=== PATIENT | male | born 1955 | race Caucasian/White ===

== ENCOUNTER 2016-09-27 13:02 | Emergency (ER) | payer MEDICARE, OTHER ==
[2016-09-27 13:15] VITALS: TEMP 98.2; O2SAT 96; BMI 32.3
--- NOTE | 2016-09-27 13:43 | ED PDOC ---
Arrival/HPI - General Time Seen by Provider: 09/27/16 13:07 Historian: Family (Son) - History of Present Illness Narrative History of Present Illness (Text): 09/27/16 14:03 61 year old male with a past medical history that includes CVA on Coumadin and chronic bilateral lower extremity edema presents with mild redness to the right esquivel that son noticed earlier today. Son states he applied Neosporin to the area with no resolution so he brought the patient to the emergency department for further evaluation. Son reports the patient is acting baseline with no new neurological deficits. No fever, shortness of breath, or other symptoms. Time/Duration: 24 hours Symptom Onset: Gradual Symptom Course: Unchanged Modifying Factors (Text): Neosporin did not resolve symptoms Associated Symptoms (Text): None Past Medical History - Provider Review Nursing Documentation Reviewed: Yes - Infectious Disease Hx of Infectious Diseases: None - Cardiac Hx Cardiac Disorders: Yes (dvt) Hx Cardiac Arrhythmia: Yes (a fib) Hx Congestive Heart Failure: No Hx Hypertension: Yes Hx Peripheral Edema: Yes (+4 pitting) - Pulmonary Hx Chronic Obstructive Pulmonary Disease (COPD): No Hx Pneumonia: Yes - Neurological HX Cerebrovascular Accident: Yes (approx ly 6 yrs ago) Hx Seizures: Yes Other/Comment: rt side hemiplagia , aphasia - HEENT Hx HEENT Disorder: No - Renal Hx Renal Failure: No - Endocrine/Metabolic Hx Diabetes Mellitus Type 1: No Hx Diabetes Mellitus Type 2: Yes Hx Hypothyroidism: No - Hematological/Oncological Hx Blood Transfusions: Yes Hx Blood Transfusion Reaction: (UNK) - Integumentary Hx Dermatological Disorder: No - Musculoskeletal/Rheumatological Hx Falls: Yes (past) - Gastrointestinal Hx Gastrointestinal Disorders: Yes Hx Gall Bladder Disease: Yes (gallstones) Other/Comment: ercp Billary stent - Genitourinary/Gynecological Hx Incontinence: Yes - Psychiatric Hx Substance Use: No - Surgical History Hx Cholecystectomy: Yes Other/Comment: uto - Anesthesia Hx Anesthesia Reactions: (UNK) Hx Malignant Hyperthermia: (UNK) Family/Social History - Physician Review Nursing Documentation Reviewed: Yes Family/Social History: Unknown Family HX Smoking Status: Never Smoked Hx Alcohol Use: No Hx Substance Use: No Allergies/Home Meds Allergies/Adverse Reactions: Allergies No Known Allergies Allergy (Verified 06/03/16 19:41) Home Medications: Home Meds Medication Instructions Recorded Confirmed Atorvastatin [Lipitor] 10 mg PO DAILY 11/10/15 06/07/16 Esomeprazole Magnesium [Nexium] 40 mg PO DAILY 05/29/16 06/07/16 Levetiracetam 500 mg PO BID 05/29/16 06/07/16 Metoprolol Tartrate [Lopressor] 25 mg PO DAILY 05/29/16 06/07/16 Potassium Chloride [K-Tab ER] 1 tab PO DAILY 05/29/16 06/07/16 Review of Systems - Review of Systems Systems not reviewed;Unavailable: Other (Nonverbal, hx of CVA) Physical Exam - Physical Exam Narrative Physical Exam (Text): - Physical exam Patient appears age appropriate, speaking full sentences without difficulty - Systems Exam Head: Present: Atraumatic, Normocephalic Pupils: Present: PERRL Extraocular Muscles: Present: EOMI Conjunctiva: Present: Normal Mouth: Present: Moist Mucous Membranes Neck: Present: Normal Range of Motion. No: MIDLINE TENDERNESS, Paraspinal Tenderness Respiratory/Chest: Present: Clear to Auscultation, Good Air Exchange. No: Respiratory Distress, Accessory Muscle Use, Tachypneic Cardiovascular: Present: Regular Rate and Rhythm, Normal S1, S2, Peripheral Pulses Present. No: Murmurs Abdomen: Present: Normal Bowel Sounds, No: Tenderness, Peritoneal Signs, Rebound, Guarding, Distention Back: Present: Normal Inspection. No: Midline Tenderness, Paraspinal Tenderness Upper Extremity: Present: Normal Inspection. No: Cyanosis, Edema Lower Extremity: Present: Bilateral 3+ pitting edema. Small erythematous area of anterior esquivel 3-4 cm long and 1 cm wide. Neurological: Present: No new focal neurological deficits. Skin: Present: Warm, Dry, Normal Color. Lymphatic: Present: OX3, NI, NC Psychiatric: Present: Alert, Normal Concentration. Vital Signs Reviewed: Yes Vital Signs Temp Pulse Resp BP Pulse Ox 09/27/16 13:14 98.2 F 93 H 18 136/77 96 Temperature: Afebrile Blood Pressure: Normal Pulse: Regular Respiratory Rate: Normal Appearance: Positive for: Well-Appearing, Non-Toxic, Comfortable Pain Distress: None Mental Status: Positive for: other (Baseline) Medical Decision Making ED Course and Treatment: Impression: 61 year old male with history of CVA on Coumadin and chronic bilateral lower extremity edema presents with mild redness to right esquivel since earlier today. On physical exam, patient has bilateral +3 pitting edema and small erythmatous area of the anterior esquivel 3-4 cm long and 1 cm wide. Differential Diagnosis include but are not limited to: Cellulitis Plan: -- US duplex lower extrem vein bilat -- Reassess and disposition Prior Visits: Notes and results from previous visits were reviewed. Patient last seen in the ED on 06/07/16 from TCU for sudden vomiting. Progress Notes: US Duplex LE Business Developer : John Stephenson MD No sonographic evidence for deep venous thrombosis in the visualized segments of both lower extremities. Very limited study Chest X-ray Business Developer: Jean Carlos Bui MD No active disease 09/27/16 16:25 Patient will be discharged home on oral antibiotics. Patient's son states he feels comfortable taking his father home with outpatient follow-up. Also informed that INR is sub-theraputic and needs to f/u with PMD for correction. All questions answered, and he verbalized full understanding of discharge instructions. - Lab Interpretations Lab Results: 09/27/16 14:00 09/27/16 14:00 Lab Results 09/27/16 14:00: WBC 6.6 D, RBC 4.21, Hgb 14.1, Hct 41.6 L, MCV 98.8, MCH 33.5, MCHC 33.9, RDW 13.9, Plt Count 236, MPV 10.0, Gran % 65.8, Lymph % (Auto) 24.5, [place] % (Auto) 7.1 H, Eos % (Auto) 2.3, Baso % (Auto) 0.3, Gran # 4.35, Lymph # 1.6, [place] # 0.5, Eos # 0.2, Baso # 0.02, PT 11.4, INR 1.06, APTT 28.0, Sodium 137, Potassium 4.3, Chloride 100, Carbon Dioxide 27, Anion Gap 14, BUN 17, Creatinine 1.0, Est GFR ( Amer) > 60, Est GFR (Non-Af Amer) > 60, Random Glucose 152 H, Calcium 9.4, Total Bilirubin 0.4, AST 27, ALT 21, Alkaline Phosphatase 49, NT-Pro-B Natriuret Pep 142, Total Protein 6.7, Albumin 3.2, Globulin 3.5, Albumin/Globulin Ratio 0.9 L - RAD Interpretation Radiology Orders: 09/27/16 13:36 CHEST PORTABLE [RAD] Stat DUPLEX LOWER EXTRM VEIN BILAT [US] Stat Structural Iron Erector: Radiologist - Scribe Statement The provider has reviewed the documentation as recorded by the Sinan Corado Provider Scribe Attestation: All medical record entries made by the Zachibe were at my direction and personally dictated by me. I have reviewed the chart and agree that the record accurately reflects my personal performance of the history, physical exam, medical decision making, and the department course for this patient. I have also personally directed, reviewed, and agree with the discharge instructions and disposition. Disposition/Present on Arrival - Present on Arrival Any Indicators Present on Arrival: No History of DVT/PE: No History of Uncontrolled Diabetes: No Urinary Catheter: No History Surgical Site Infection Following: None - Disposition Have Diagnosis and Disposition been Completed?: Yes Diagnosis: Cellulitis Disposition: HOME/ ROUTINE Disposition Time: 16:26 Patient Plan: Discharge Patient Problems: Current Active Problems Problem Status Diagnosed Abdominal pain Acute Cellulitis Acute Vomiting Acute Condition: GOOD Discharge Instructions (ExitCare): Cellulitis (ED) Additional Instructions: PLEASE RETURN TO THE EMERGENCY DEPARTMENT FOR NEW OR WORSENING SYMPTOMS. RETURN RIGHT AWAY IF YOU CANNOT FOLLOW UP WITH YOUR PRIMARY CARE DOCTOR, CLINIC, OR SPECIALIST IN 1-2 DAYS. Prescriptions: Doxycycline Monohydrate 100 mg PO BID #14 tablet
[2016-09-27 14:04] LABS: ADD MANUAL DIFF? NO
--- NOTE | 2016-09-27 14:13 | RAD ---
HISTORY: cough COMPARISON: 06/07/2016 FINDINGS: LUNGS: No active pulmonary disease. PLEURA: No significant pleural effusion identified, no pneumothorax apparent. CARDIOVASCULAR: Normal. OSSEOUS STRUCTURES: No significant abnormalities. VISUALIZED UPPER ABDOMEN: Normal. OTHER FINDINGS: None. IMPRESSION: No active disease.
[2016-09-27 14:19] LABS: ALB/GLOB RATIO 0.9 (1.1-1.8); ALKALINE PHOSPHATASE 49 U/L (38-133); ALT/SGPT 21 U/L (7-56); AST/SGOT 27 U/L (15-59); BILIRUBIN,TOTAL 0.4 mg/dL (0.2-1.3); BLOOD UREA NITROGEN 17 mg/dL (7-21); CALCIUM 9.4 mg/dL (8.4-10.5); CARBON DIOXIDE 27 mmol/L (21-33); CHLORIDE 100 mmol/L (95-110); GFR AFRICAN-AMERICAN > 60; GLUCOSE,RANDOM 152 mg/dL (70-110); POTASSIUM 4.3 mmol/L (3.6-5.0); SODIUM 137 mmol/L (132-148); TOTAL PROTEIN 6.7 g/dL (5.8-8.3)
[2016-09-27 14:24] LABS: BASO # 0.02 K/mm3 (0.0-2.0); BASO % 0.3 % (0.0-3.0); EOS # 0.2 (0.0-0.7); EOS % 2.3 % (1.5-5.0); GRAN # 4.35 (1.4-6.5); GRAN % 65.8 % (50.0-68.0); HEMATOCRIT 41.6 % (42.0-52.0); LYMPH # 1.6 (1.2-3.4); LYMPH % 24.5 % (22.0-35.0); MEAN CELL VOLUME 98.8 fL (80.0-105.0); MEAN CORPUSCULAR HEMOGLOBIN 33.5 pg (25.0-35.0); MEAN CORPUSCULAR HGB CONC 33.9 g/dl (31.0-37.0); MONO # 0.5 (0.1-0.6); MONO % 7.1 % (1.0-6.0); PLATELET COUNT 236 10^3/uL (120.0-450.0); RED CELL DISTRIBUTION WIDTH 13.9 % (11.5-14.5); WHITE BLOOD COUNT 6.6 10^3/ul (4.5-11.0)
[2016-09-27 14:40] LABS: INR 1.06 (0.93-1.08)
--- NOTE | 2016-09-27 15:11 | US ---
HISTORY: Leg pain and swelling. Evaluate for DVT PHYSICIAN(S): John Vale MD. TECHNIQUE: Duplex sonography and color-flow Doppler with graded compression were used to evaluate the deep venous systems of both lower extremities. FINDINGS: The exam is very limited by body habitus and edema. The lower femoral veins and tibial veins are not well seen. The visualized deep venous systems of both lower extremities are sonographically normal and compressible. Normal wave forms and augmentation are seen. There is no sonographic evidence for deep venous thrombosis in the visualized segments of both lower extremities. IMPRESSION: No sonographic evidence for deep venous thrombosis in the visualized segments of both lower extremities. Very limited study
[2016-09-27 18:32] VITALS: RESP 16
[2016-09-27 20:37] VITALS: BP 149/92; PULSE 82
== END 2016-09-27 20:37 | disposition home or self-care (01) ==
LOC: ED 13:02
DX: L03.115 Cellulitis of right lower limb (principal); I10 Essential (primary) hypertension; Z86.73 Personal history of transient ischemic attack (TIA), and cerebral infarction without residual deficits; Z79.01 Long term (current) use of anticoagulants

== ENCOUNTER 2016-12-09 11:42 | Emergency (ER) | payer MEDICARE, OTHER ==
[2016-12-09 11:48] VITALS: BMI 39.1
[2016-12-09 11:57] VITALS: RESP 16; TEMP 98.2
[2016-12-09] MEDS ORDERED: Sodium Chloride 0.9% 500 ML IV STA (12:06)
--- NOTE | 2016-12-09 12:40 | ED PDOC ---
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 Patient notes lower abdominal pain but denies any fever, blood in stool or any other complaints at this time. Patient cannot speak at bedside. Limited history provided. PMD: Dr. Dela Cruz Symptom Course: Unchanged Activities at Onset: Rest Context: Home Associated Symptoms (Text): none Past Medical History - Provider Review Nursing Documentation Reviewed: Yes - Infectious Disease Hx of Infectious Diseases: None - Cardiac Hx Cardiac Disorders: Yes (dvt) Hx Cardiac Arrhythmia: Yes (a fib) Hx Congestive Heart Failure: No Hx Hypertension: Yes Hx Peripheral Edema: Yes (+4 pitting) - Pulmonary Hx Respiratory Disorders: Yes Hx Chronic Obstructive Pulmonary Disease (COPD): No Hx Pneumonia: Yes - Neurological Hx Neurological Disorder: Yes HX Cerebrovascular Accident: Yes (approx ly 6 yrs ago) Hx Seizures: Yes Other/Comment: rt side hemiplagia , aphasia - HEENT Hx HEENT Disorder: No - Renal Hx Renal Disorder: No Hx Renal Failure: No - Endocrine/Metabolic Hx Endocrine Disorders: Yes Hx Diabetes Mellitus Type 1: No Hx Diabetes Mellitus Type 2: Yes Hx Hypothyroidism: No - Hematological/Oncological Hx Blood Disorders: Yes Hx Blood Transfusions: Yes Hx Blood Transfusion Reaction: (UNK) - Integumentary Hx Dermatological Disorder: No - Musculoskeletal/Rheumatological Hx Musculoskeletal Disorders: Yes Hx Falls: Yes (past) - Gastrointestinal Hx Gastrointestinal Disorders: Yes Hx Gall Bladder Disease: Yes (gallstones) Other/Comment: ercp Billary stent - Genitourinary/Gynecological Hx Genitourinary Disorders: Yes Hx Incontinence: Yes - Psychiatric Hx Psychophysiologic Disorder: No Hx Substance Use: No - Surgical History Hx Cholecystectomy: Yes Other/Comment: uto - Anesthesia Hx Anesthesia Reactions: (UNK) Hx Malignant Hyperthermia: (UNK) Family/Social History - Physician Review Nursing Documentation Reviewed: Yes Family/Social History: No Known Family HX Smoking Status: Never Smoked Hx Alcohol Use: No Hx Substance Use: No Allergies/Home Meds Allergies/Adverse Reactions: Allergies No Known Allergies Allergy (Verified 12/09/16 11:50) Home Medications: Home Meds Medication Instructions Recorded Confirmed Atorvastatin [Lipitor] 10 mg PO DAILY 11/10/15 06/07/16 Esomeprazole Magnesium [Nexium] 40 mg PO DAILY 05/29/16 06/07/16 Levetiracetam 500 mg PO BID 05/29/16 06/07/16 Metoprolol Tartrate [Lopressor] 25 mg PO DAILY 05/29/16 06/07/16 Potassium Chloride [K-Tab ER] 1 tab PO DAILY 05/29/16 06/07/16 Review of Systems - Review of Systems Systems not reviewed;Unavailable: Other (patient cannot speak at bedside) Constitutional: absent: Fevers Gastrointestinal: Abdominal Pain. absent: Nausea, Vomiting, Hematochezia Physical Exam Vital Signs Reviewed: Yes Vital Signs Temp Pulse Resp BP Pulse Ox 12/09/16 14:35 82 16 154/99 H 95 12/09/16 11:57 98.2 F 83 16 154/92 H 97 Temperature: Afebrile Blood Pressure: Hypertensive Pulse: Regular Respiratory Rate: Normal Appearance: Positive for: Non-Toxic, Comfortable, Other (morbidly obese) Pain Distress: None Mental Status: Positive for: Alert and Oriented X 3 - Systems Exam Head: Present: Atraumatic, Normocephalic Pupils: Present: PERRL Extroacular Muscles: Present: EOMI Conjunctiva: Present: Normal Mouth: Present: Moist Mucous Membranes Neck: Present: Normal Range of Motion Respiratory/Chest: Present: Clear to Auscultation, Good Air Exchange. No: Respiratory Distress, Accessory Muscle Use Cardiovascular: Present: Regular Rate and Rhythm, Normal S1, S2. No: Murmurs Abdomen: Present: Tenderness (suprapubic ), Normal Bowel Sounds. No: Distention , Peritoneal Signs Back: Present: Normal Inspection Upper Extremity: Present: Normal Inspection. No: Cyanosis, Edema Lower Extremity: Present: Normal Inspection. No: Edema Neurological: Present: GCS=15, CN II-XII Intact, Speech Normal Skin: Present: Warm, Dry, Normal Color. No: Rashes Psychiatric: Present: Alert, Oriented x 3, Normal Insight, Normal Concentration Medical Decision Making ED Course and Treatment: 12/09/16 12:38 Impression: A 61 year old male with abdominal pain. Differential Diagnosis include but are not limited to: Plan: -- EKG -- CT abd/pelvis -- labs -- Urinalysis -- IV fluids, Toradol -- Reassess and disposition Prior Visits: Notes and results from previous visits were reviewed. Patient last reported to the emergency department on 09/27/16 for evaluation of mild redness to the right esquivel. Patient was advised outpatient follow up and discharged on oral antibiotics. Progress Notes: EKG: Ordered, reviewed, and independently interpreted the EKG. Rate : 84 BPM Rhythm : NSR Interpretation : No ST/T changes, normal intervals. Comparison : No previous EKG for comparison. 12/09/16 16:07 pt reassessed. abd soft. son now bedside. endorses 2 days of lower abd pain. ct neg for obstruction. pt sleeping in nad. advised outpt follow up and return precautions - Lab Interpretations Lab Results: 12/09/16 13:00 12/09/16 13:00 Lab Results 12/09/16 14:00: Urine Color Yellow, Urine Appearance Clear, Urine pH 7.0, Ur Specific [place] 1.020, Urine Protein >=300 H, Urine Glucose (UA) 100 H, Urine Ketones Negative, Urine Blood Moderate H, Urine Nitrate Negative, Urine Bilirubin Negative, Urine Urobilinogen 1.0 H, Ur Leukocyte Esterase Negative, Urine RBC Pending, Urine WBC Pending 12/09/16 13:00: Sodium 138, Potassium 4.4, Chloride 104, Carbon Dioxide 31, Anion Gap 7 L, BUN 15, Creatinine 1.1, Est GFR ( Amer) > 60, Est GFR (Non -Af Amer) > 60, Random Glucose 150 H, Calcium 8.6, Total Bilirubin 0.4, AST 34, ALT 39, Alkaline Phosphatase 48, Total Protein 6.1, Albumin 2.8 L, Globulin 3.4 , Albumin/Globulin Ratio 0.8 L, Lipase 175 12/09/16 13:00: PT 16.4 H, INR 1.52 H, APTT 35.8 H 12/09/16 13:00: WBC 6.5, RBC 4.23, Hgb 14.4, Hct 42.1, MCV 99.5, MCH 34.0, MCHC 34.2, RDW 13.0, Plt Count 248, MPV 10.0, Gran % 70.4 H, Lymph % (Auto) 18.2 L, [place] % (Auto) 9.4 H, Eos % (Auto) 1.5, Baso % (Auto) 0.5, Gran # 4.56, Lymph # 1.2, [place] # 0.6, Eos # 0.1, Baso # 0.03 I have reviewed the lab results: Yes - RAD Interpretation Radiology Orders: 12/09/16 12:09 ABD & PELVIS IV CONTRAST ONLY [CT] Stat - EKG Interpretation Interpreted by ED Physician: Yes Type: 12 lead EKG - Medication Orders Current Medication Orders: Discontinued Medications Sodium Chloride (Sodium Chloride 0.9%) 500 mls @ 1,000 mls/hr IV .Q30M STA Stop: 12/09/16 12:35 Last Admin: 12/09/16 12:34 Dose: 1,000 mls/hr Iohexol (Omnipaque 350 150 Ml) Confirm Administered Dose 150 ml .ROUTE .STK-MED ONE Stop: 12/09/16 14:04 Ketorolac Tromethamine (Toradol) 30 mg IVP STAT STA Stop: 12/09/16 12:07 Last Admin: 12/09/16 12:34 Dose: 30 mg - Scribe Statement The provider has reviewed the documentation as recorded by the Sinan Lewis Provider Scribe Attestation: All medical record entries made by the Sinan were at my direction and personally dictated by me. I have reviewed the chart and agree that the record accurately reflects my personal performance of the history, physical exam, medical decision making, and the department course for this patient. I have also personally directed, reviewed, and agree with the discharge instructions and disposition. Disposition/Present on Arrival - Present on Arrival Any Indicators Present on Arrival: No History of DVT/PE: No History of Uncontrolled Diabetes: No Urinary Catheter: No History of Decub. Ulcer: No History Surgical Site Infection Following: None - Disposition Have Diagnosis and Disposition been Completed?: Yes Diagnosis: Abdominal pain, Fecal impaction Disposition: HOME/ ROUTINE Disposition Time: 16:02 Patient Problems: Current Active Problems Problem Status Onset Abdominal pain Acute Fecal impaction Acute Condition: STABLE Discharge Instructions (ExitCare): Constipation (ED), Acute Abdominal Pain (ED) Additional Instructions: please follow up with your doctor/specailist. return to emergency room with worsening symptoms or concerns. Prescriptions: Polyethylene Glycol 3350 [Miralax] 17 gm PO DAILY PRN #4 ml PRN Reason: Constipation Referrals: [facility] [Outside] - Follow up with primary [facility] [place] - Follow up with primary Leroy Cabrera DO [Primary Care Provider] - Follow up with primary Ramon Tovar DO [Staff Provider] - Follow up with primary
[2016-12-09 13:17] LABS: ADD MANUAL DIFF? NO
[2016-12-09 13:30] LABS: BASO # 0.03 K/mm3 (0.0-2.0); BASO % 0.5 % (0.0-3.0); EOS # 0.1 (0.0-0.7); EOS % 1.5 % (1.5-5.0); GRAN # 4.56 (1.4-6.5); GRAN % 70.4 % (50.0-68.0); HEMATOCRIT 42.1 % (42.0-52.0); LYMPH # 1.2 (1.2-3.4); LYMPH % 18.2 % (22.0-35.0); MEAN CELL VOLUME 99.5 fL (80.0-105.0); MEAN CORPUSCULAR HGB CONC 34.2 g/dl (31.0-37.0); MONO # 0.6 (0.1-0.6); MONO % 9.4 % (1.0-6.0); PLATELET COUNT 248 10^3/uL (120.0-450.0); WHITE BLOOD COUNT 6.5 10^3/ul (4.5-11.0)
[2016-12-09 13:34] LABS: ALB/GLOB RATIO 0.8 (1.1-1.8); ALKALINE PHOSPHATASE 48 U/L (38-133); ALT/SGPT 39 U/L (7-56); AST/SGOT 34 U/L (15-59); BILIRUBIN,TOTAL 0.4 mg/dL (0.2-1.3); BLOOD UREA NITROGEN 15 mg/dL (7-21); CALCIUM 8.6 mg/dL (8.4-10.5); CARBON DIOXIDE 31 mmol/L (21-33); CHLORIDE 104 mmol/L (98-107); GFR AFRICAN-AMERICAN > 60; GLUCOSE,RANDOM 150 mg/dL (70-110); LIPASE 175 U/L (23-300); POTASSIUM 4.4 mmol/L (3.6-5.0); SODIUM 138 mmol/L (132-148); TOTAL PROTEIN 6.1 g/dL (5.8-8.3)
[2016-12-09 13:37] LABS: INR 1.52 (0.93-1.08); PARTIAL THROMBOPLASTIN TIME 35.8 Seconds (23.7-30.8)
[2016-12-09 15:17] LABS: URINE BILIRUBIN NEGATIVE (NEGATIVE); URINE BLOOD MODERATE (NEGATIVE); URINE GLUCOSE (UA) 100 mg/dL (NEGATIVE); URINE KETONE NEGATIVE (NEGATIVE); URINE LEUKOCYTE ESTERASE NEGATIVE Leu/uL (NEGATIVE); URINE PROTEIN >=300 mg/dL (<30 mg/dL)
[2016-12-09 15:19] LABS: URINE APPEARANCE CLEAR (CLEAR); URINE COLOR YELLOW (YELLOW)
--- NOTE | 2016-12-09 15:58 | CT ---
PROCEDURE: CT Abdomen and Pelvis with contrast HISTORY: lower abd pain COMPARISON: 06/07/2016 TECHNIQUE: Contrast dose: 150 cc of Omni 350 Radiation dose: Total exam DLP = 1356 mGy-cm. This CT exam was performed using one or more of the following dose reduction techniques: Automated exposure control, adjustment of the mA and/or kV according to patient size, and/or use of iterative reconstruction technique. FINDINGS: LOWER THORAX: Unremarkable. LIVER: Unremarkable. No gross lesion or ductal dilatation. GALLBLADDER AND BILE DUCTS: Gallbladder removed PANCREAS: Unremarkable. No gross lesion or ductal dilatation. SPLEEN: Unremarkable. ADRENALS: Unremarkable. No mass. KIDNEYS AND URETERS: Unremarkable. No hydronephrosis. No solid mass. VASCULATURE: Unremarkable. No aortic aneurysm. Caval filter BOWEL: Unremarkable. No obstruction. No gross mural thickening. There is a moderate amount of fecal impaction APPENDIX: Normal appendix. PERITONEUM: Unremarkable. No free fluid. No free air. LYMPH NODES: Unremarkable. No enlarged lymph nodes. BLADDER: Unremarkable. REPRODUCTIVE: Unremarkable. BONES: Extensive heterotopic bone is seen around both hips right greater than left OTHER FINDINGS: None. IMPRESSION: Fecal impaction. No acute intra-abdominal findings
[2016-12-09 16:14] LABS: URINE AMORPHOUS SEDIMENT MODERATE
[2016-12-09 16:41] VITALS: BP 158/90; PULSE 69; O2SAT 97
--- NOTE | 2016-12-09 18:26 | CARD ---
APPROVED REPORT EKG Measurement Heart [id number] ID [id number] <Conclusion> Normal sinus rhythm Normal ECG
== END 2016-12-09 17:03 | disposition home or self-care (01) ==
LOC: ED 11:42
DX: R10.9 Unspecified abdominal pain (principal); K56.41 Fecal impaction
CPT/HCPCS: 74177; 80053; 81001; 83690; 85025; 85610; 85730; 87086; 93005; 96361; 96374; 99285; J1885; J7040; Q9967

== ENCOUNTER 2017-03-06 16:14 | Emergency (ER) | payer MEDICARE, OTHER ==
[2017-03-06 16:15] VITALS: BMI 34.4
[2017-03-06 16:23] VITALS: TEMP 98.2
--- NOTE | 2017-03-06 16:59 | ED PDOC ---
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 The sister states that the usual home stereo equipment installer for the patient had just experienced an [place] and . The sister came to the patient's home after this event. On Tuesday when she came, she noted the skin changes. Further details about the changes are unknown due to the extenuating circumstances. The sister is unsure of the patient's medical history, and so information was taken from old records. The patient did nod his head when asked about pain in the extremity. Patient was able to motion that he was not experiencing any other complaints. HPI and ROS limited due to patient's aphasia. 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, DVT, hypertension, diabetes, seizures, choledocolithiasis PSHx: EUS, ERCP, sphincterotomy Allergies: NKDA (Edmund Swenson) Past Medical History - Provider Review Nursing Documentation Reviewed: Yes - Infectious Disease Hx of Infectious Diseases: None - Cardiac Hx Cardiac Disorders: Yes (dvt) Hx Cardiac Arrhythmia: Yes (a fib) Hx Congestive Heart Failure: No Hx Hypertension: Yes Hx Peripheral Edema: Yes (+4 pitting) - Pulmonary Hx Respiratory Disorders: Yes Hx Chronic Obstructive Pulmonary Disease (COPD): No Hx Pneumonia: Yes - Neurological Hx Neurological Disorder: Yes HX Cerebrovascular Accident: Yes (approx ly 6 yrs ago) Hx Seizures: Yes Other/Comment: rt side hemiplagia , aphasia - HEENT Hx HEENT Disorder: No - Renal Hx Renal Disorder: No Hx Renal Failure: No - Endocrine/Metabolic Hx Endocrine Disorders: Yes Hx Diabetes Mellitus Type 1: No Hx Diabetes Mellitus Type 2: Yes Hx Hypothyroidism: No - Hematological/Oncological Hx Blood Disorders: Yes Hx Blood Transfusions: Yes Hx Blood Transfusion Reaction: (UNK) - Integumentary Hx Dermatological Disorder: No - Musculoskeletal/Rheumatological Hx Musculoskeletal Disorders: Yes Hx Falls: Yes (past) - Gastrointestinal Hx Gastrointestinal Disorders: Yes Hx Gall Bladder Disease: Yes (gallstones) Other/Comment: ercp Billary stent - Genitourinary/Gynecological Hx Genitourinary Disorders: Yes Hx Incontinence: Yes - Psychiatric Hx Psychophysiologic Disorder: No Hx Substance Use: No - Surgical History Hx Cholecystectomy: Yes Other/Comment: uto - Anesthesia Hx Anesthesia Reactions: (UNK) Hx Malignant Hyperthermia: (UNK) <Edmund Swenson - Last Filed: 03/06/17 21:40> Family/Social History - Physician Review Nursing Documentation Reviewed: Yes Family/Social History: CAD/[place] Smoking Status: Never Smoked Hx Alcohol Use: No Hx Substance Use: No <Edmund Swenson - Last Filed: 03/06/17 21:40> Allergies/Home Meds <Edmund Swenson - Last Filed: 03/06/17 21:40> <Cristi Lay DO - Last Filed: 03/06/17 22:29> Allergies/Adverse Reactions: Allergies No Known Allergies Allergy (Verified 12/09/16 11:50) Home Medications: Home Meds Medication Instructions Recorded Confirmed Atorvastatin [Lipitor] 10 mg PO DAILY 11/10/15 03/06/17 Esomeprazole Magnesium [Nexium] 40 mg PO DAILY 05/29/16 03/06/17 Levetiracetam 500 mg PO BID 05/29/16 03/06/17 Metoprolol Tartrate [Lopressor] 25 mg PO DAILY 05/29/16 03/06/17 Potassium Chloride [K-Tab ER] 1 tab PO DAILY 05/29/16 03/06/17 Review of Systems - Review of Systems Systems not reviewed;Unavailable: Other (limited ROS due to aphasia) Skin: Skin Lesions (posterior right lower extremity with pain) <Edmund Swenson - Last Filed: 03/06/17 21:40> Physical Exam Vital Signs Reviewed: Yes Blood Pressure: Hypertensive Pulse: Tachycardic Respiratory Rate: Normal Appearance: Positive for: Comfortable Pain Distress: None Mental Status: Positive for: other (Aphasic. unable to ascertain) - Systems Exam Head: Present: Atraumatic, Normocephalic Pupils: Present: PERRL Extroacular Muscles: Present: EOMI Conjunctiva: Present: Normal Mouth: Present: Moist Mucous Membranes Respiratory/Chest: Present: Clear to Auscultation, Good Air Exchange. No: Accessory Muscle Use Cardiovascular: Present: Regular Rate and Rhythm, Normal S1, S2 Abdomen: Present: Tenderness (generalized tenderness across the lower abdomen), Distention. No: Normal Bowel Sounds (Hyperactive Bowel Sounds) Upper Extremity: Present: NORMAL PULSES Lower Extremity: Present: Edema (Bilateral 3+ pitting edema extending throughout entire lower extremities that is chronic per old records), NORMAL PULSES, Other (Black discoloration of right leg. multiple lesions located along the entire RLE with tenderness. Lesions are not erythematous and are not warm to touch.) Neurological: No: Speech Normal (Aphasic), Motor Func Grossly Intact (right hemiparesis.) Skin: Present: Dry, Other (Black discoloration of right leg. multiple lesions located along the entire RLE with tenderness. Lesions are not erythematous and are not warm to touch.) Psychiatric: Present: Alert <Edmund Swenson - Last Filed: 03/06/17 21:40> Medical Decision Making <Edmund Swenson - Last Filed: 03/06/17 21:40> <Cristi Lay DO - Last Filed: 03/06/17 22:29> ED Course and Treatment: 03/06/17 17:09 CBC, CMP, Coags, RLE duplex 03/06/17 20:27 CT abdomen with PO & IV contrast RLE duplex limited study but unremarkable. 03/06/17 21:41 CT abdomen/pelvis showed fecal impaction. Patient discharged with instructions for hygiene, follow up with PMD Dr. Cabrera. Patient discharged with prescriptions for Keflex and Miralax. Family spoken to at length, and they understand and agree with the plan. (Edmund Swenson) 03/06/17 17:19 Patient Seen With Resident: In agreement with resident note and more details are present in their notes. Patient was seen and evaluated with resident, came up with plan and treatment together. (Cristi Lay DO) - Lab Interpretations Lab Results: 03/06/17 17:10 03/06/17 17:10 Lab Results 03/06/17 17:10: Sodium 137, Potassium 4.5, Chloride 104, Carbon Dioxide 24, Anion Gap 14, BUN 24 H, Creatinine 1.2, Est GFR ( Amer) > 60, Est GFR ( Non-Af Amer) > 60, Random Glucose 101, Calcium 8.9, Total Bilirubin 0.2, AST 29 , ALT 30, Alkaline Phosphatase 54, Total Protein 6.3, Albumin 3.1, Globulin 3.3 , Albumin/Globulin Ratio 0.9 L 03/06/17 17:10: PT 27.4 H, INR 2.54 H, APTT 45.5 H 03/06/17 17:10: WBC 7.0, RBC 4.25, Hgb 14.2, Hct 42.2, MCV 99.3, MCH 33.4, MCHC 33.6, RDW 12.7, Plt Count 181, MPV 10.7, Gran % 68.0, Lymph % (Auto) 22.0, [place] % (Auto) 7.0 H, Eos % (Auto) 2.6, Baso % (Auto) 0.4, Gran # 4.76, Lymph # 1.5, [place] # 0.5, Eos # 0.2, Baso # 0.03 - RAD Interpretation Radiology Orders: 03/06/17 16:49 DUPLEX LOWER EXTRM VEIN RIGHT [US] Stat 03/06/17 17:14 ABDOMEN & PELVIS [ABD PELVIS PO & IV CONTRAST] [CT] Stat - Medication Orders Current Medication Orders: Sodium Chloride (Sodium Chloride 0.9%) 500 mls @ 100 mls/hr IV .Q5H [facility] Last Admin: 03/06/17 19:30 Dose: 100 mls/hr Discontinued Medications Iohexol (Omnipaque 240 (50 Ml)) Confirm Administered Dose 50 ml .ROUTE .STK-MED ONE Stop: 03/06/17 17:24 Iohexol (Omnipaque 350 100 Ml) Confirm Administered Dose 350 mg .ROUTE .STK-MED ONE Stop: 03/06/17 19:50 Disposition/Present on Arrival - Present on Arrival Any Indicators Present on Arrival: Yes History of DVT/PE: Yes History of Uncontrolled Diabetes: No Urinary Catheter: No History of Decub. Ulcer: No History Surgical Site Infection Following: None <GayBaldo springera S - Last Filed: 03/06/17 21:40> - Present on Arrival Any Indicators Present on Arrival: No History of DVT/PE: Yes - Disposition Have Diagnosis and Disposition been Completed?: Yes Disposition Time: 21:15 <Cristi Lay DO - Last Filed: 03/06/17 22:29> - Disposition Diagnosis: Skin lesion Disposition: HOME/ ROUTINE Patient Problems: Current Active Problems Problem Status Onset Skin lesion Acute Condition: GOOD Additional Instructions: Please follow up with your primary doctor Dr. Cabrera within 1 week. His phone number and information have been provided. The ultrasound for the right leg was normal. The CT scan showed a lot of constipation. Take Miralax, mix 1 packet in water daily only if needed for constipation. Take the antibiotic Keflex 500 mg by mouth twice a day for 7 days. Make sure to clean the areas and dry thoroughly. Reduce sources of friction in the affected areas. Elevate the legs and get compression stockings to reduce swelling. Prescriptions: Cephalexin [cephalexin] 500 mg PO BID #14 cap Polyethylene Glycol 3350 [Miralax] 17 gm PO DAILY PRN #100 ml PRN Reason: Constipation Referrals: Leroy Cabrera DO [Primary Care Provider] - Follow up with primary Forms: [employer] (Mongolian)
[2017-03-06] MEDS ORDERED: Iohexol 240 (50 ml) ONE (17:23)
[2017-03-06 17:30] LABS: BASO # 0.03 K/mm3 (0.0-2.0); BASO % 0.4 % (0.0-3.0); EOS # 0.2 (0.0-0.7); EOS % 2.6 % (1.5-5.0); GRAN # 4.76 (1.4-6.5); HEMATOCRIT 42.2 % (42.0-52.0); LYMPH # 1.5 (1.2-3.4); MEAN CELL VOLUME 99.3 fl (80.0-105.0); MEAN CORPUSCULAR HEMOGLOBIN 33.4 pg (25.0-35.0); MEAN CORPUSCULAR HGB CONC 33.6 g/dl (31.0-37.0); MEAN PLATELET VOLUME 10.7 fl (7.0-11.0); MONO # 0.5 (0.1-0.6); RED CELL DISTRIBUTION WIDTH 12.7 % (11.5-14.5)
[2017-03-06 17:38] LABS: INR 2.54 (0.93-1.08); PARTIAL THROMBOPLASTIN TIME 45.5 Seconds (23.7-30.8)
[2017-03-06 17:42] LABS: ALB/GLOB RATIO 0.9 (1.1-1.8); ALKALINE PHOSPHATASE 54 U/L (38-126); ALT/SGPT 30 U/L (7-56); AST/SGOT 29 U/L (17-59); BILIRUBIN,TOTAL 0.2 mg/dL (0.2-1.3); BLOOD UREA NITROGEN 24 mg/dL (7-21); CALCIUM 8.9 mg/dL (8.4-10.5); CARBON DIOXIDE 24 mmol/L (21-33); CHLORIDE 104 mmol/L (98-107); GFR AFRICAN-AMERICAN > 60; GLUCOSE,RANDOM 101 mg/dL (70-110); POTASSIUM 4.5 mmol/L (3.6-5.0); SODIUM 137 mmol/L (132-148); TOTAL PROTEIN 6.3 g/dL (5.8-8.3)
[2017-03-06] MEDS ORDERED: Sodium Chloride 0.9% 500 ML IV SCH (18:41)
[2017-03-06] MEDS ORDERED: Iohexol 350 MG/100 ML VIAL ONE (19:49)
[2017-03-06 20:09] VITALS: RESP 18
--- NOTE | 2017-03-06 21:01 | CT ---
EXAM: CT Abdomen and Pelvis With Intravenous Contrast CLINICAL HISTORY: 62 years old, male; Pain; Abdominal pain; Patient HX: Abdominal tenderness. Distended, hyperactive bs TECHNIQUE: Axial computed tomography images of the abdomen and pelvis with intravenous contrast. All CT scans at this facility use one or more dose reduction techniques, viz.: automated exposure control; ma/kV adjustment per patient size (including targeted exams where dose is matched to indication; i.e. head); or iterative reconstruction technique. Coronal and sagittal reformatted images were created and reviewed. CONTRAST: 97 mL of OMNIPAQUE 350 administered intravenously. COMPARISON: CT - ABD PELVIS IV CONTRAST ONLY 12/09/2016 2:08:11 PM FINDINGS: Limitations: Motion artifact - mild to moderate. Lower thorax: No acute findings. ABDOMEN: Liver: Unremarkable. No mass. Gallbladder and bile ducts: Small amount of air within biliary tree. Cholecystectomy. No ductal dilation. Pancreas: No ductal dilation. No mass. Spleen: No splenomegaly. Adrenals: No mass. Kidneys and ureters: Few too small to characterize lesions within kidneys. No hydronephrosis. Stomach and bowel: Moderate to large stool within rectum. No definite mural thickening. No obstruction. Appendix: Normal caliber. No inflammation. PELVIS: Bladder: Unremarkable. Reproductive: Mildly enlarged prostate. ABDOMEN and PELVIS: Intraperitoneal space: No significant fluid collection. No free air. Bones/joints: Degenerative changes of spine. Heterotopic ossification about hips. No acute fracture. Soft tissues: Small inguinal hernias containing fat. Mild stranding within subcutaneous tissues. Vasculature: IVC filter. No aneurysm. Lymph nodes: No pathologically enlarged lymph nodes. IMPRESSION: 1. Mild pneumobilia. 2. Fecal impaction. 3. Incidental/non-acute findings are described above.
[2017-03-07 02:29] VITALS: BP 160/90; PULSE 90; O2SAT 95
--- NOTE | 2017-03-07 08:07 | US ---
PROCEDURE: Right lower extremity venous US HISTORY: Leg pain and swelling. Evaluate for DVT. PHYSICIAN(S): John Vale M.D. TECHNIQUE: Duplex sonography and color-flow Doppler with graded compression were used to evaluate the deep venous system of the right lower extremity. The exam is very limited by body habitus, edema, and the patient's inability to cooperate. The lower femoral veins and tibial veins are not adequately seen. FINDINGS: The visualized deep venous system of the right lower extremity is sonographically normal and compressible. Normal waveforms and augmentation are seen. There is no sonographic evidence for deep venous thrombosis in the visualized segments of the right lower extremity. IMPRESSION: 1. No sonographic evidence for deep venous thrombosis in the visualized segments of the right lower extremity. 2. Very limited study.
--- NOTE | 2017-03-07 16:22 | CARD ---
APPROVED REPORT EKG Measurement Heart [id number] <Conclusion> Normal sinus rhythm Normal ECG
== END 2017-03-07 02:30 | disposition home or self-care (01) ==
LOC: ED 16:14
DX: L98.9 Disorder of the skin and subcutaneous tissue, unspecified (principal); I48.91 Unspecified atrial fibrillation; I10 Essential (primary) hypertension; E11.9 Type 2 diabetes mellitus without complications
CPT/HCPCS: 74177; 80053; 85025; 85610; 85730; 93005; 93971; 99285; J7040; Q9966; Q9967

== ENCOUNTER 2017-04-06 21:36 | Emergency (ER) | payer MEDICARE, OTHER ==
[2017-04-06 21:37] VITALS: BMI 34.4
[2017-04-06 21:50] VITALS: TEMP 98.2
--- NOTE | 2017-04-06 22:09 | ED PDOC ---
Arrival/HPI <Tala Ruano - Last Filed: 04/07/17 00:32> <Marino Leon - Last Filed: 04/07/17 01:47> - General Chief Complaint: Abnormal Skin Integrity Time Seen by Provider: 04/06/17 21:43 - History of Present Illness Narrative History of Present Illness (Text): 62 year old male with a past medical history of CVA, right hemiparesis, DVT, and chronic appearing lower extremity edema who presents with right lower extremity pain and discoloration in the affected calf. He denies any chest pain , shortness of breath, fever, chills, night sweats. 04/06/17 22:49 04/07/17 00:33 (Tala Ruano) Past Medical History - Provider Review Nursing Documentation Reviewed: Yes - Infectious Disease Hx of Infectious Diseases: None - Cardiac Hx Cardiac Disorders: Yes (dvt) Hx Cardiac Arrhythmia: Yes (a fib) Hx Congestive Heart Failure: No Hx Hypertension: Yes Hx Peripheral Edema: Yes (+4 pitting) - Pulmonary Hx Respiratory Disorders: Yes Hx Chronic Obstructive Pulmonary Disease (COPD): No Hx Pneumonia: Yes - Neurological Hx Neurological Disorder: Yes HX Cerebrovascular Accident: Yes (approx ly 6 yrs ago) Hx Seizures: Yes Other/Comment: rt side hemiplagia , aphasia - HEENT Hx HEENT Disorder: No - Renal Hx Renal Disorder: No Hx Renal Failure: No - Endocrine/Metabolic Hx Endocrine Disorders: Yes Hx Diabetes Mellitus Type 1: No Hx Diabetes Mellitus Type 2: Yes Hx Hypothyroidism: No - Hematological/Oncological Hx Blood Disorders: Yes Hx Blood Transfusions: Yes Hx Blood Transfusion Reaction: (UNK) - Integumentary Hx Dermatological Disorder: No - Musculoskeletal/Rheumatological Hx Musculoskeletal Disorders: Yes Hx Falls: Yes (past) - Gastrointestinal Hx Gastrointestinal Disorders: Yes Hx Gall Bladder Disease: Yes (gallstones) Other/Comment: ercp Billary stent - Genitourinary/Gynecological Hx Genitourinary Disorders: Yes Hx Incontinence: Yes - Psychiatric Hx Psychophysiologic Disorder: No Hx Substance Use: No - Surgical History Hx Cholecystectomy: Yes Other/Comment: uto - Anesthesia Hx Anesthesia Reactions: (UNK) Hx Malignant Hyperthermia: (UNK) <Tala Ruano - Last Filed: 04/07/17 00:32> Family/Social History - Physician Review Nursing Documentation Reviewed: Yes Family/Social History: Unknown Family HX Smoking Status: Never Smoked Hx Alcohol Use: No Hx Substance Use: No <AldenTala dejesus - Last Filed: 04/07/17 00:32> - Physician Review Nursing Documentation Reviewed: Yes Family/Social History: Unknown Family HX Smoking Status: Never Smoked Hx Alcohol Use: No Hx Substance Use: No <LeonMarino P - Last Filed: 04/07/17 01:47> Allergies/Home Meds <AldenTala - Last Filed: 04/07/17 00:32> <Marino Leon P - Last Filed: 04/07/17 01:47> Allergies/Adverse Reactions: Allergies No Known Allergies Allergy (Verified 12/09/16 11:50) Home Medications: Home Meds Medication Instructions Recorded Confirmed Esomeprazole Magnesium [Nexium] 40 mg PO DAILY 05/29/16 04/06/17 Levetiracetam 500 mg PO BID 05/29/16 04/06/17 Metoprolol Tartrate [Lopressor] 25 mg PO DAILY 05/29/16 04/06/17 Potassium Chloride [K-Tab ER] 1 tab PO DAILY 05/29/16 04/06/17 Warfarin [Coumadin] 3 mg PO DAILY 04/06/17 04/06/17 Review of Systems - Review of Systems Constitutional: absent: Fatigue, Weight Change, Fevers Eyes: Normal. absent: Vision Changes, Photophobia ENT: Normal. absent: Hearing Changes, Tinnitus, TMJ Pain Respiratory: absent: Normal, SOB, Cough, Sputum Cardiovascular: Normal, Edema, Calf Pain. absent: Chest Pain, Palpitations Gastrointestinal: Normal. absent: Abdominal Pain, Stool Changes Genitourinary Male: Normal. absent: Dysuria, Frequency Musculoskeletal: Normal. absent: Arthralgias, Back Pain, Neck Pain Skin: Normal. absent: Ulcer, Cellulitis Neurological: Normal, Other (right hemiparesis). absent: Headache, Dizziness Endocrine: absent: Diaphoresis, Polyuria, Polydipsia Hemo/Lymphatic: absent: Easy Bleeding, Easy Bruising Psychiatric: absent: Anxiety, Depression <Tala Ruano - Last Filed: 04/07/17 00:32> Physical Exam Temperature: Afebrile Blood Pressure: Hypertensive Pulse: Tachycardic Respiratory Rate: Tachypneic Appearance: Positive for: Non-Toxic Pain Distress: Moderate Mental Status: Positive for: other (aphasic) - Systems Exam Head: Present: Atraumatic, Normocephalic Pupils: Present: PERRL Extroacular Muscles: Present: EOMI Conjunctiva: Present: Normal Mouth: Present: Moist Mucous Membranes Pharnyx: No: ERYTHEMA, EXUDATE Respiratory/Chest: Present: Clear to Auscultation, Good Air Exchange. No: Respiratory Distress, Accessory Muscle Use Cardiovascular: Present: Normal S1, S2, Tachycardic Abdomen: No: Tenderness, Distention, Rebound, Guarding Back: Present: Normal Inspection. No: CVA Tenderness Upper Extremity: Present: Normal Inspection Lower Extremity: Present: Edema, CALF TENDERNESS (right), Other (right LE is in contracture ) Neurological: Present: CN II-XII Intact. No: Speech Normal (aphasic) Skin: Present: Warm, Dry, Normal Color Psychiatric: Present: Alert, Normal Concentration <Tala Ruano - Last Filed: 04/07/17 00:32> Vital Signs Reviewed: Yes Temperature: Afebrile Blood Pressure: Hypertensive Pulse: Tachycardic Respiratory Rate: Normal Appearance: Positive for: Non-Toxic, Comfortable Pain Distress: None Mental Status: Positive for: Alert and Oriented X 3 - Systems Exam Head: Present: Atraumatic, Normocephalic <Marino Leon P - Last Filed: 04/07/17 01:47> Vital Signs Temp Pulse Resp BP Pulse Ox 04/06/17 23:25 154/105 H 04/06/17 21:44 98.2 F 101 H 18 176/106 H 97 Medical Decision Making <Tala Ruano - Last Filed: 04/07/17 00:32> <Marino Leon P - Last Filed: 04/07/17 01:47> ED Course and Treatment: Patient given 4 mg of Coumadin, 100 mg of SC Enoxaparin, and 40 mg of IVP Lasix. INR subtherapuetic at 1.83, D-Dimer 0.41. Doppler US of Right Lower Extremity performed, read pending. 04/07/17 00:37 (Tala Ruano) Patient Seen With Resident: In agreement with resident note which contains more details about the patient. Patient was seen and evaluated with resident. Came up with plan and treatment together. 04/07/17 00:24 62-year-old male with a history of DVT seizures and stroke presents with right lower extremity swelling and discoloration. No signs of cellulitis no signs of ischemic limb or necrotizing fasciitis. The patient has been here with visits for this same complaint prior. He is non-therapeutic and his INR therefore we will obtain a DVT ultrasound since he has had a history of DVT in the past with given 1 dose of Lovenox because he is not therapeutic on his Coumadin level and additional dose of Coumadin and advised him to follow-up for repeat INR check the also given 1 dose of Lasix IV suspect that this may be contributing factor. He is not on any diuretics, despite signicifcant lower extremity edema. 04/07/17 01:36 Ultrasound of the lower extremities right is negative for DVT. (Marino Leon) - Lab Interpretations Lab Results: 04/06/17 22:32 04/06/17 22:32 Lab Results 04/06/17 22:32: Sodium 138, Potassium 4.5, Chloride 101, Carbon Dioxide 32, Anion Gap 10, BUN 17, Creatinine 1.3, Est GFR ( Amer) > 60, Est GFR (Non- Af Amer) 56, Random Glucose 153 H, Calcium 8.8, Total Bilirubin 0.3, AST 30, ALT 25, Alkaline Phosphatase 55, Total Protein 6.5, Albumin 3.2, Globulin 3.4, Albumin/Globulin Ratio 0.9 L 04/06/17 22:32: PT 19.8 H, INR 1.83 H, APTT 39.0 H, D-Dimer, Quantitative 0.41 04/06/17 22:32: WBC 7.4, RBC 4.24, Hgb 14.3, Hct 41.6 L, MCV 98.1, MCH 33.7, MCHC 34.4, RDW 12.8, Plt Count 227, MPV 10.0, Gran % 65.0, Lymph % (Auto) 25.3, [place] % (Auto) 7.3 H, Eos % (Auto) 2.3, Baso % (Auto) 0.1, Gran # 4.82, Lymph # 1.9, [place] # 0.5, Eos # 0.2, Baso # 0.01 - RAD Interpretation Radiology Orders: 04/06/17 22:11 DUPLEX LOWER EXTRM VEIN RIGHT [US] Stat - Medication Orders Current Medication Orders: Enoxaparin Sodium (Lovenox) 100 mg 1 mg/kg (100 mg) SC Q12H AMOS PRN Reason: Protocol Last Admin: 04/07/17 00:57 Dose: 100 mg Subcutaneous Administrations Document 04/07/17 00:57 OCS (Rec: 04/07/17 00:58 [id number] Injection Site MAR Injection Site Umbilicus Charges for Administration # of Subcutaneous Administrations 1 Discontinued Medications Furosemide (Lasix) 40 mg IVP STAT STA Stop: 04/06/17 23:00 Last Admin: 04/06/17 23:25 Dose: 40 mg MAR Blood Pressure Document 04/06/17 23:25 SS (Rec: 04/06/17 23:25 SS [id number]) Blood Pressure Blood Pressure (100/60-150/90 mm Hg) 154/105 IVP Administration Document 04/06/17 23:25 SS (Rec: 04/06/17 23:25 SS [id number]) Charges for Administration # of IVP Administrations 1 Warfarin Sodium (Coumadin) 4 mg PO STAT STA PRN Reason: Protocol Stop: 04/07/17 00:24 Last Admin: 04/07/17 01:00 Dose: 4 mg MAR aPTT Document 04/07/17 01:00 OCS (Rec: 04/07/17 01:01 [id number] aPTT aPTT (secs) 1.8 Disposition/Present on Arrival - Present on Arrival Any Indicators Present on Arrival: Yes History of DVT/PE: Yes History of Uncontrolled Diabetes: No Urinary Catheter: No History of Decub. Ulcer: No History Surgical Site Infection Following: None <Tala Ruano - Last Filed: 04/07/17 00:32> - Present on Arrival Any Indicators Present on Arrival: Yes History of DVT/PE: Yes History of Uncontrolled Diabetes: Yes Urinary Catheter: No History of Decub. Ulcer: No - Disposition Have Diagnosis and Disposition been Completed?: Yes Disposition Time: 01:36 Patient Plan: Discharge <Marino Leon - Last Filed: 04/07/17 01:47> - Disposition Diagnosis: Lower extremity edema, INR (international normal ratio) abnormal Disposition: HOME/ ROUTINE Patient Problems: Current Active Problems Problem Status Onset INR (international normal ratio) abnormal Acute Lower extremity edema Acute Condition: IMPROVED Discharge Instructions (ExitCare): Leg Edema (ED) Additional Instructions: Your coumadin level was low please, follow-up with your doctor to increase the dose and have an INR recheck in 2-3 days. Use KRISTEN hose to limit lower extremity edema. Prescriptions: Furosemide [Lasix] 40 mg PO DAILY #5 udc Forms: [employer] (U[place]ayan)
[2017-04-06 22:43] LABS: BASO # 0.01 K/mm3 (0.0-2.0); BASO % 0.1 % (0.0-3.0); EOS # 0.2 (0.0-0.7); EOS % 2.3 % (1.5-5.0); GRAN # 4.82 (1.4-6.5); HEMATOCRIT 41.6 % (42.0-52.0); LYMPH # 1.9 (1.2-3.4); LYMPH % 25.3 % (22.0-35.0); MEAN CELL VOLUME 98.1 fl (80.0-105.0); MEAN CORPUSCULAR HEMOGLOBIN 33.7 pg (25.0-35.0); MEAN CORPUSCULAR HGB CONC 34.4 g/dl (31.0-37.0); MONO # 0.5 (0.1-0.6); MONO % 7.3 % (1.0-6.0); RED CELL DISTRIBUTION WIDTH 12.8 % (11.5-14.5); WHITE BLOOD COUNT 7.4 10^3/ul (4.5-11.0)
[2017-04-06 22:53] LABS: ALB/GLOB RATIO 0.9 (1.1-1.8); ALKALINE PHOSPHATASE 55 U/L (38-126); ALT/SGPT 25 U/L (7-56); AST/SGOT 30 U/L (17-59); BILIRUBIN,TOTAL 0.3 mg/dL (0.2-1.3); BLOOD UREA NITROGEN 17 mg/dL (7-21); CALCIUM 8.8 mg/dL (8.4-10.5); CARBON DIOXIDE 32 mmol/L (21-33); CHLORIDE 101 mmol/L (98-107); GFR AFRICAN-AMERICAN > 60; GLUCOSE,RANDOM 153 mg/dL (70-110); POTASSIUM 4.5 mmol/L (3.6-5.0); SODIUM 138 mmol/L (132-148); TOTAL PROTEIN 6.5 g/dL (5.8-8.3)
[2017-04-06 22:55] LABS: INR 1.83 (0.93-1.08)
[2017-04-06 22:56] LABS: D DIMER 0.41 mg/L FEU (0-0.50)
[2017-04-07] MEDS ORDERED: Enoxaparin 100 mg Syringe SC SCH (00:30)
[2017-04-07 01:50] VITALS: PULSE 93
[2017-04-07 04:30] VITALS: BP 147/109; RESP 16; O2SAT 95
--- NOTE | 2017-04-07 18:24 | US ---
PROCEDURE: Right lower extremity venous US HISTORY: Leg pain and swelling. Evaluate for DVT. PHYSICIAN(S): John Vale M.D. TECHNIQUE: Duplex sonography and color-flow Doppler with graded compression were used to evaluate the deep venous system of the right lower extremity. The exam is very limited due to swelling. FINDINGS: The visualized deep venous system of the right lower extremity is sonographically normal and compressible. Normal waveforms and augmentation are seen. There is no sonographic evidence for deep venous thrombosis in the visualized segments of the right lower extremity. IMPRESSION: 1. No sonographic evidence for deep venous thrombosis in the visualized segments of the right lower extremity.
== END 2017-04-07 04:30 | disposition home or self-care (01) ==
LOC: ED 21:36
DX: R60.0 Localized edema (principal); R79.1 Abnormal coagulation profile
CPT/HCPCS: 80053; 85025; 85378; 85610; 85730; 86140; 93971; 96372; 96374; 99283; J1650; J1940

== ENCOUNTER 2017-04-10 00:25 | Inpatient (IN) | payer MEDICARE, OTHER ==
--- NOTE | 2017-04-10 00:59 | ED PDOC ---
Arrival/HPI - General Historian: Family, Caregiver (daughter) - History of Present Illness Time/Duration: 24 hours Symptom Onset: Sudden Symptom Course: Unchanged <Emily Dodge - Last Filed: 04/10/17 02:34> <Kirill Staples - Last Filed: 04/10/17 06:25> - General Chief Complaint: Weakness/Neurological Deficit Time Seen by Provider: 04/10/17 00:50 - History of Present Illness Narrative History of Present Illness (Text): 04/10/17 00:59 History as per daughter at bedside 62M w/PMH sig for CVA w/R hemiplegia (2008) evaluated for new onset expressive aphasia and inability to swallow. Daughter reports recent loss of family member (son), pt has been "slow" in the mornings. Morning prior to evaluation, pt was no able to vocalize- baseline pt can say "Yes, No" and could not swallow food/medications/fluids. Daughter reports pt was able to swallow food and liquid on day prior to symptom onset. Pt is able to gesture and indicate with eyes, daughter asked if pt wanted to go to hospital throughout day prior to evaluation with pt continually declining. Daughter finally called EMS due to inability of patient to take medications/swallow. Daughter also reports that pt 's tongue is swollen and he is indicating that he is having abdominal pain. Denies emesis, fevers, chills. ROS is limited due to pt inability to express himself, however can follow simple commands PMH: CVA (2008) w/residual R hemiplegia, HTN, DM PSH: Unknown All: NKDA SH: Lives with daughter who is primary toddler caregiver, denies ETOH, tobacco or illicit drug use or history of PMD: [place] (Emily Dodge) Modifying Factors (Text): 04/10/17 02:14 None (Emily Dodge) Associated Symptoms (Text): 04/10/17 02:14 none (Emily Dodge) Past Medical History - Provider Review Nursing Documentation Reviewed: Yes - Infectious Disease Hx of Infectious Diseases: None - Cardiac Hx Cardiac Disorders: Yes (dvt) Hx Cardiac Arrhythmia: Yes (a fib) Hx Congestive Heart Failure: No Hx Hypertension: Yes Hx Peripheral Edema: Yes (+4 pitting) - Pulmonary Hx Respiratory Disorders: Yes Hx Chronic Obstructive Pulmonary Disease (COPD): No Hx Pneumonia: Yes - Neurological Hx Neurological Disorder: Yes HX Cerebrovascular Accident: Yes (approx ly 6 yrs ago) Hx Seizures: Yes Other/Comment: rt side hemiplagia , aphasia - HEENT Hx HEENT Disorder: No - Renal Hx Renal Disorder: No Hx Renal Failure: No - Endocrine/Metabolic Hx Endocrine Disorders: Yes Hx Diabetes Mellitus Type 1: No Hx Diabetes Mellitus Type 2: Yes Hx Hypothyroidism: No - Hematological/Oncological Hx Blood Disorders: Yes Hx Blood Transfusions: Yes Hx Blood Transfusion Reaction: (UNK) - Integumentary Hx Dermatological Disorder: No - Musculoskeletal/Rheumatological Hx Musculoskeletal Disorders: Yes Hx Falls: Yes (past) - Gastrointestinal Hx Gastrointestinal Disorders: Yes Hx Gall Bladder Disease: Yes (gallstones) Other/Comment: ercp Billary stent - Genitourinary/Gynecological Hx Genitourinary Disorders: Yes Hx Incontinence: Yes - Psychiatric Hx Psychophysiologic Disorder: No Hx Substance Use: No - Surgical History Hx Cholecystectomy: Yes Other/Comment: uto - Anesthesia Hx Anesthesia Reactions: (UNK) Hx Malignant Hyperthermia: (UNK) <Emily Dodge - Last Filed: 04/10/17 02:34> Family/Social History - Physician Review Nursing Documentation Reviewed: Yes Family/Social History: No Known Family HX Smoking Status: Never Smoked Hx Alcohol Use: No Hx Substance Use: No <Emily Dodge - Last Filed: 04/10/17 02:34> Family/Social History: No Known Family HX <Kirill Staples - Last Filed: 04/10/17 06:25> Allergies/Home Meds <Emily Dodge - Last Filed: 04/10/17 02:34> <Kirill Staples - Last Filed: 04/10/17 06:25> Allergies/Adverse Reactions: Allergies No Known Allergies Allergy (Verified 12/09/16 11:50) Home Medications: Home Meds Medication Instructions Recorded Confirmed Esomeprazole Magnesium [Nexium] 40 mg PO DAILY 05/29/16 04/10/17 Levetiracetam 500 mg PO BID 05/29/16 04/10/17 Metoprolol Tartrate [Lopressor] 25 mg PO DAILY 05/29/16 04/10/17 Potassium Chloride [K-Tab ER] 1 tab PO DAILY 05/29/16 04/10/17 Warfarin [Coumadin] 3 mg PO DAILY 04/06/17 04/10/17 Review of Systems - Review of Systems Systems not reviewed;Unavailable: Other (expressive aphasia) Gastrointestinal: Abdominal Pain. absent: Nausea, Vomiting <Emily Dodge - Last Filed: 04/10/17 02:34> Physical Exam Vital Signs Reviewed: Yes Temperature: Afebrile Blood Pressure: Hypertensive Pulse: Regular Respiratory Rate: Normal Appearance: Positive for: Non-Toxic, Comfortable Pain Distress: None Mental Status: Positive for: other (expressive aphasia, non verbal) - Systems Exam Head: Present: Atraumatic, Normocephalic Extroacular Muscles: Present: EOMI Mouth: Present: Moist Mucous Membranes Nose (External): Present: Atraumatic Neck: Present: Normal Range of Motion Respiratory/Chest: Present: Clear to Auscultation, Good Air Exchange. No: Respiratory Distress, Accessory Muscle Use Cardiovascular: Present: Normal S1, S2, Tachycardic. No: Murmurs Abdomen: Present: Tenderness (periumbilical), Normal Bowel Sounds, Scars (well healed LUQ scar). No: Distention (obese), Peritoneal Signs Upper Extremity: Present: Edema (Non pitting edema of R upper extremity). No: Normal ROM (Does not move Right upper extremity) Lower Extremity: Present: Edema (Non-pitting B/L LE). No: Normal ROM (Does not move Right lower extremity) Neurological: Present: GCS=15. No: Speech Normal (aphasic), Motor Func Grossly Intact, Normal Cerebellar Funct Skin: Present: Warm, Dry, Normal Color. No: Rashes Psychiatric: Present: Alert. No: Oriented x 3 (unable to assess due to aphasia) <Emily Dodge - Last Filed: 04/10/17 02:34> Vital Signs Temp Pulse Resp BP Pulse Ox 04/10/17 03:30 104 H 19 125/89 97 04/10/17 03:00 112 H 173/115 H 04/10/17 02:59 110 H 17 159/97 H 94 L 04/10/17 02:35 113 H 17 153/119 H 98 04/10/17 02:15 110 H 18 133/112 H 96 04/10/17 01:52 116 H 19 147/107 H 97 04/10/17 01:36 108 H 18 173/124 H 94 L 04/10/17 00:51 97.8 F 108 H 18 196/109 H 94 L Medical Decision Making - Lab Interpretations I have reviewed the lab results: Yes - RAD Interpretation Shield Installer: Radiologist - EKG Interpretation Interpreted by ED Physician: Yes Type: 12 lead EKG <DodgeEmily - Last Filed: 04/10/17 02:34> - Critical Care Critical Care Minutes: 45 minutes - Lab Interpretations I have reviewed the lab results: Yes - RAD Interpretation Shield Installer: ED Physician, Radiologist - EKG Interpretation Interpreted by ED Physician: Yes Type: 12 lead EKG <Kirill Staples - Last Filed: 04/10/17 06:25> ED Course and Treatment: 04/10/17 01:19 Code stroke called due to new findings of expressive aphasia and inability to swallow as per daughter. 04/10/17 02:10 INR 2.99 - will order Vitamin K 04/10/17 02:14 Pt to be admitted to ICU- Dr. Benito accepted to ICU. residential sales representative to do admission. (Emily Dodge) Impression: Pt seen and evaluated with medical biller/coder. Pt, whose past medical history includes CVA with residual right hemiplegia, presented for new expressive aphasia and dysphagia since yesterday morning. Aware and agree with HPI, clinical findings, plan, and management. Plan: -- CT Head w/o contrast -- EKG -- Chest X-ray -- Labs, troponin, lipid panel, blood type and screen -- Apresoline -- Reassess and disposition Progress Notes: 04/10/17 00:58 Code stroke called. Pt taken to CT scan. 04/10/17 01:25 CT Head shows: There is atrophy. There is chronic small vessel ischemic disease. There is a 1.1 x 1.4 cm parenchymal bleed in the right basal ganglia. No mass effect or midline shift. There is a small area of low attenuation in the left basal ganglia consistent with old lacunar infarct. There is ex vacuo dilatation of the adjacent left lateral ventricle. No significant fluid in the sinuses. The osseous structures are normal. IMPRESSION: Small intraparenchymal bleed right basal ganglia. 04/10/17 02:[address] Benito, telescope operator, who is aware and agrees to evaluate pt for ICU admission. residential sales representative notified. 04/10/17 02:[address] Germain, who is aware and agrees with plan. 04/10/17 02:[address] Caryn Tilley, neurologist, who is aware and agrees with plan.Pt. not a candidate for TPA.(Cerebral bleed) Neurosurgery paged. 04/10/17 02:[address] Marquis, neurosurgeon, who is aware and will consult on case. (Kirill Staples) - Lab Interpretations Lab Results: 04/10/17 01:25 04/10/17 01:25 Lab Results 04/10/17 01:28: POC Glucose (mg/dL) 133 H 04/10/17 01:25: Blood Type AB POSITIVE, Antibody Screen Negative, BBK History Checked Patient has bt 04/10/17 01:25: Sodium 142, Potassium 4.0, Chloride 102, Carbon Dioxide 31, Anion Gap 13, BUN 16, Creatinine 1.4, Est GFR ( Amer) > 60, Est GFR (Non- Af Amer) 52, Random Glucose 132 H, Calcium 9.2, Total Bilirubin 0.7, AST 30, ALT 32, Alkaline Phosphatase 66, Troponin I < 0.01, Total Protein 7.3, Albumin 3.6, Globulin 3.7, Albumin/Globulin Ratio 1.0 L, Triglycerides 78, Cholesterol 120 L, LDL Cholesterol Direct 52, HDL Cholesterol 41 04/10/17 01:25: PT 32.3 H*, INR 2.99 H, APTT 47.9 H 04/10/17 01:25: WBC 11.7 H D, RBC 4.64, Hgb 15.7, Hct 45.9, MCV 98.9, MCH 33.8, MCHC 34.2, RDW 13.0, Plt Count 251, MPV 10.1, Gran % 83.5 H, Lymph % (Auto) 9.8 L, [place] % (Auto) 5.9, Eos % (Auto) 0.7 L, Baso % (Auto) 0.1, Gran # 9.74 H, Lymph # 1.1 L, [place] # 0.7 H, Eos # 0.1, Baso # 0.01 - RAD Interpretation Narrative RAD Interpretations (Text): 04/10/17 02:15 Right basal ganglia, 1.1 x 1.4 cm parenchymal bleed (Dodge,Emily) Radiology Orders: 04/10/17 01:00 HEAD W/O (CODE STROKE) [CT] Stat CHEST PORTABLE [RAD] Stat - EKG Interpretation EKG Interpretation (Text): 04/10/17 02:17 Sinus tachycardia at 107, no acute changes (Emily Dodge) - Medication Orders Current Medication Orders: Sodium Chloride (Sodium Chloride 0.9%) 1,000 mls @ 100 mls/hr IV .Q10H AMOS Labetalol HCl (Trandate) 10 mg IV Q6 AMOS Pantoprazole Sodium (Protonix Inj) 40 mg IVP DAILY AMOS Discontinued Medications Hydralazine HCl (Apresoline) 10 mg IVP ONCE ONE Stop: 04/10/17 01:00 Last Admin: 04/10/17 01:36 Dose: 10 mg IVP Administration Document 04/10/17 01:36 RD (Rec: 04/10/17 01:36 RD [email or web address]) Charges for Administration # of IVP Administrations 1 MAR Pulse and Blood Pressure Document 04/10/17 01:36 RD (Rec: 04/10/17 01:36 RD [email or web address]) Pulse Pulse Rate (60-90) 108 Blood Pressure Blood Pressure (100/60-150/90) 173/124 Phytonadione 10 mg/ Sodium (Chloride) 51 mls @ 100 mls/hr IV ONCE ONE Stop: 04/10/17 02:43 Last Admin: 04/10/17 02:30 Dose: 100 mls/hr eMAR Start Stop Document 04/10/17 02:30 RD (Rec: 04/10/17 03:01 RD [email or web address]) Intravenous Solution Start Date 04/10/17 Start Time 02:30 End Date 04/10/17 End time 03:00 Total Infusion Time 30 Labetalol HCl (Trandate) 10 mg IV STAT STA Stop: 04/10/17 02:52 Last Admin: 04/10/17 03:00 Dose: 10 mg eMAR Start Stop Document 04/10/17 03:00 JOL (Rec: 04/10/17 03:02 JOL [email or web address]) Intravenous Solution Start Date 04/10/17 Start Time 03:01 End Date 04/10/17 End time 03:05 Total Infusion Time 4 MAR Pulse and Blood Pressure Document 04/10/17 03:00 DONA (Rec: 04/10/17 03:02 JO [id number]) Pulse Pulse Rate (60-90) 112 Blood Pressure Blood Pressure (100/60-150/90) 173/115 NIHSS Scale ([place]) Time Performed: 00:55 - How Severe is the Stoke Baseline Level of Consciousness: 0=Alert LOC to Questions: 0=Both comments correct LOC to commands: 0=Obeys both correctly Best Gaze: 0=Normal Visual: 0=No visual loss Facial: 0=Normal Motor Arm - Left: 0=No drift Motor Arm - Right: 4=No movement Motor Leg - Left: 0=No drift Motor Leg - Right: 4=No movement Limb Ataxia: 0=Absent Sensory: 0=Normal Best Language: 3=Mute Dysarthia: 2=Severe, near unintelligible or worse Extinction & Inattention (Neglect): 0=Normal, no object Score: 13 Risk Level: Mod Stroke Risk <Emily Dodge - Last Filed: 04/10/17 02:34> rTPA Inclusion/Exclusion - Refusal of Treatment Patient Refused Treatment: No - Inclusion Criteria for Altepase Patient is 18 years or Older: Yes The Clinical Diagnosis of Ischemic Stroke That is Causing a Potentially Disabling Neurological Deficit: Yes Time of Onset is Well Established to be Less Than 270 Minute Before Treatment Would Begin: No Risk/Benefit Discussed With Patient/Family Member Present: Yes - Exclusion Criteria for Altepase Uncontrolled Hypertension at Time of Treatment (Systolic BP above 185 or Diastolic BP above 110 mmHg): Yes Active Internal Bleeding: No Known Bleeding Diathesis Including but Not Limited to: Platelets Below 100,000/ mm,PTT Above 40 sec After Heparin Use, Current Use of Oral Anitcoagulant With INR Greater Than 1.7 or PT Greater Than 15 secs: No Evidence of an Intracranial Hemorrhage: No Evidence of Major Acute Infarct With Signs Greater Than 1/3 MCA Territory: No Suspicion of Subarachnoid Hemorrhage on Pretreatment Evaluation Even if CT Head Negative For Hemorrhage: No - Warning to TPA With Conditions Following Conditions Weighed Against Anticipated Benefit: Yes Condition: Increase Risk of Bleed Due to Comorbid Condition Additional Condition (For 3-4.5 Hour Window): Prior Stroke and Diabetes <Emily Dodge - Last Filed: 04/10/17 02:34> - Exclusion Criteria for Altepase Uncontrolled Hypertension at Time of Treatment (Systolic BP above 185 or Diastolic BP above 110 mmHg): No <Kirill Staples - Last Filed: 04/10/17 06:25> - PA / [employer] / Resident Statement / has reviewed & agrees with the documentation as recorded. / has examined the patient and agrees with the treatment plan. <Kirill Staples - Last Filed: 04/10/17 06:25> Disposition/Present on Arrival - Present on Arrival Any Indicators Present on Arrival: Yes History of DVT/PE: Yes History of Uncontrolled Diabetes: Yes Urinary Catheter: No History of Decub. Ulcer: No History Surgical Site Infection Following: None - Disposition Have Diagnosis and Disposition been Completed?: Yes Disposition Time: 02:18 Patient Plan: Admission, ICU <Emily Dodge - Last Filed: 04/10/17 02:34> - Present on Arrival Any Indicators Present on Arrival: No <Kirill Staples - Last Filed: 04/10/17 06:25> - Disposition Diagnosis: CVA (cerebrovascular accident due to intracerebral hemorrhage) Disposition: HOSPITALIZED Patient Problems: Current Active Problems Problem Status Onset CVA (cerebrovascular accident due to intracerebral hemorrhage) Acute Condition: FAIR
--- NOTE | 2017-04-10 01:29 | CT ---
EXAM: CT Head Without Intravenous Contrast EXAM DATE/TIME: 04/10/2017 1:00 AM CLINICAL HISTORY: 62 years old, male; Signs and symptoms; Other: Stroke; Additional info: Code stroke TECHNIQUE: Axial computed tomography images of the head/brain without intravenous contrast. All CT scans at this facility use one or more dose reduction techniques, viz.: automated exposure control; ma/kV adjustment per patient size (including targeted exams where dose is matched to indication; i.e. head); or iterative reconstruction technique. COMPARISON: CT - HEAD W/O CONTRAST 11/20/2015 12:24:40 AM FINDINGS: There is atrophy. There is chronic small vessel ischemic disease. There is a 1.1 x 1.4 cm parenchymal bleed in the right basal ganglia. No mass effect or midline shift. There is a small area of low attenuation in the left basal ganglia consistent with old lacunar infarct. There is ex vacuo dilatation of the adjacent left lateral ventricle. No significant fluid in the sinuses. The osseous structures are normal. IMPRESSION: Small intraparenchymal bleed right basal ganglia.
[2017-04-10 01:41] LABS: BASO # 0.01 K/mm3 (0.0-2.0); BASO % 0.1 % (0.0-3.0); EOS # 0.1 (0.0-0.7); EOS % 0.7 % (1.5-5.0); GRAN # 9.74 (1.4-6.5); GRAN % 83.5 % (50.0-68.0); HEMATOCRIT 45.9 % (42.0-52.0); LYMPH # 1.1 (1.2-3.4); LYMPH % 9.8 % (22.0-35.0); MEAN CELL VOLUME 98.9 fl (80.0-105.0); MEAN CORPUSCULAR HEMOGLOBIN 33.8 pg (25.0-35.0); MEAN CORPUSCULAR HGB CONC 34.2 g/dl (31.0-37.0); MEAN PLATELET VOLUME 10.1 fl (7.0-11.0); MONO # 0.7 (0.1-0.6); MONO % 5.9 % (1.0-6.0); WHITE BLOOD COUNT 11.7 10^3/ul (4.5-11.0)
[2017-04-10 01:50] LABS: ALKALINE PHOSPHATASE 66 U/L (38-126); ALT/SGPT 32 U/L (7-56); AST/SGOT 30 U/L (17-59); BILIRUBIN,TOTAL 0.7 mg/dL (0.2-1.3); BLOOD UREA NITROGEN 16 mg/dL (7-21); CALCIUM 9.2 mg/dL (8.4-10.5); CARBON DIOXIDE 31 mmol/L (21-33); CHLORIDE 102 mmol/L (98-107); CHOLESTEROL 120 mg/dL (130-200); GFR AFRICAN-AMERICAN > 60; GLUCOSE,RANDOM 132 mg/dL (70-110); SODIUM 142 mmol/L (132-148); TOTAL PROTEIN 7.3 g/dL (5.8-8.3)
[2017-04-10 01:53] LABS: INR 2.99 (0.93-1.08); PARTIAL THROMBOPLASTIN TIME 47.9 Seconds (23.7-30.8)
[2017-04-10] MEDS ORDERED: Phytonadione 10 MG in Sodium Chloride 0.9% 50 ML IV ONE (02:13)
[2017-04-10 02:16] LABS: TROPONIN I < 0.01 ng/mL
[2017-04-10] MEDS ORDERED: Labetalol 5 mg/ml Inj 20ML IV STA (02:51)
[2017-04-10] MEDS ORDERED: Labetalol 5 mg/ml Inj 20ML ONE (02:55)
[2017-04-10] MEDS ORDERED: Sodium Chloride 0.9% 1,000 ML IV SCH (04:30)
[2017-04-10 06:00] LABS: BASO # 0.02 K/mm3 (0.0-2.0); BASO % 0.2 % (0.0-3.0); EOS % 0.1 % (1.5-5.0); GRAN # 10.36 (1.4-6.5); GRAN % 87.9 % (50.0-68.0); HEMATOCRIT 43.4 % (42.0-52.0); LYMPH # 0.9 (1.2-3.4); LYMPH % 7.6 % (22.0-35.0); MEAN CELL VOLUME 98.4 fl (80.0-105.0); MEAN CORPUSCULAR HEMOGLOBIN 33.6 pg (25.0-35.0); MEAN CORPUSCULAR HGB CONC 34.1 g/dl (31.0-37.0); MEAN PLATELET VOLUME 10.7 fl (7.0-11.0); MONO # 0.5 (0.1-0.6); MONO % 4.2 % (1.0-6.0); RED CELL DISTRIBUTION WIDTH 12.9 % (11.5-14.5); WHITE BLOOD COUNT 11.8 10^3/ul (4.5-11.0)
[2017-04-10] MEDS ORDERED: Labetalol 5 mg/ml Inj 20ML IV SCH (06:00)
[2017-04-10 06:04] LABS: ALKALINE PHOSPHATASE 61 U/L (38-126); ALT/SGPT 25 U/L (7-56); AST/SGOT 33 U/L (17-59); BILIRUBIN,TOTAL 0.7 mg/dL (0.2-1.3); BLOOD UREA NITROGEN 16 mg/dL (7-21); CARBON DIOXIDE 31 mmol/L (21-33); CHLORIDE 103 mmol/L (98-107); CHOLESTEROL 111 mg/dL (130-200); GFR AFRICAN-AMERICAN > 60; GLUCOSE,RANDOM 156 mg/dL (70-110); MAGNESIUM 1.9 mg/dL (1.7-2.2); PHOSPHOROUS 2.7 mg/dL (2.5-4.5); POTASSIUM 3.7 mmol/L (3.6-5.0); SODIUM 142 mmol/L (132-148); TOTAL PROTEIN 6.8 g/dL (5.8-8.3)
[2017-04-10 06:11] LABS: INR 2.17 (0.93-1.08)
--- NOTE | 2017-04-10 08:23 | CP.PCM.CON ---
<Nikhil Delgadillo - Last Filed: 04/10/17 08:32> History of Present Illness - History of Present Illness History of Present Illness: Chief Complaint AMS HPI Patient is a 62 year old male who presents to [facility] accompanied with family complaining that patient was unlike himself this morning. Patient has a previous history of CVA that has left his entire right side hemiplegic. Patient has a typical routine that involves getting up for his morning bath. Normally patient is able to help bathe himself using his left side of his body but his home health aid noticed he was unable to do so. When it came time to have breakfast difficulty swallowing solids and liquids was noticed. With these symptoms occurring it was decided to bring patient to the ED. Whether the symptoms occurred as soon as patient woke up or overnight is unknown. Most of HPI and ROS is limited due to patient's inability to verbally communicate. Patient was at time of physical exam able to nod yes or no however. PMD: Dr. Cabrera Family history: HTN, DM Social history: denies tobacco, alcohol, illicit drug use Allergies: NKDA Medications:see MAR Review of Systems - Review of Systems Systems not reviewed;Unavailable: Altered Mental Status Past Patient History - Infectious Disease Hx of Infectious Diseases: None - Past Social History Smoking Status: Never Smoked - CARDIAC Hx Cardiac Disorders: Yes (dvt) Hx Cardia Arrhythmia: Yes (a fib) Hx Congestive Heart Failure: No Hx Hypertension: Yes Hx Peripheral Edema: Yes (+4 pitting) - PULMONARY Hx Respiratory Disorders: Yes Hx Chronic Obstructive Pulmonary Disease (COPD): No Hx Pneumonia: Yes - NEUROLOGICAL Hx Neurological Disorder: Yes HX Cerebrovascular Accident: Yes (approx ly 6 yrs ago) Hx Seizures: Yes Other/Comment: rt side hemiplagia , aphasia - HEENT Hx HEENT Problems: No - RENAL Hx Chronic Kidney Disease: No Hx Renal Failure: No - ENDOCRINE/METABOLIC Hx Endocrine Disorders: Yes Hx Diabetes Mellitus Type 1: No Hx Diabetes Mellitus Type 2: Yes Hx Hypothyroidism: No - HEMATOLOGICAL/ONCOLOGICAL Hx Blood Disorders: Yes Hx Blood Transfusions: Yes Hx Blood Transfusion Reaction: (UNK) - INTEGUMENTARY Hx Dermatological Problems: No - MUSCULOSKELETAL/RHEUMATOLOGICAL Hx Musculoskeletal Disorders: Yes Hx Falls: Yes (past) - GASTROINTESTINAL Hx Gastrointestinal Disorders: Yes Hx Gall Bladder Disease: Yes (gallstones) Other/Comment: ercp Billary stent - GENITOURINARY/GYNECOLOGICAL Hx Genitourinary Disorders: Yes Hx Incontinence: Yes - PSYCHIATRIC Hx Psychophysiologic Disorder: No Hx Substance Use: No - SURGICAL HISTORY Hx Cholecystectomy: Yes Other/Comment: uto - ANESTHESIA Hx Anesthesia Reactions: (UNK) Hx Malignant Hyperthermia: (UNK) Meds Allergies/Adverse Reactions: Allergies Allergy/AdvReac Type Severity Reaction Status Date / Time No Known Allergies Allergy Verified 12/09/16 11:50 - Medications Medications: Current Medications Sodium Chloride (Sodium Chloride 0.9%) 1,000 mls @ 100 mls/hr IV .Q10H AMOS Labetalol HCl (Trandate) 10 mg IV Q6 AMOS Pantoprazole Sodium (Protonix Inj) 40 mg IVP DAILY AMOS Physical Exam - Constitutional Appears: Confused - Head Exam Head Exam: ATRAUMATIC, NORMAL INSPECTION, NORMOCEPHALIC - ENT Exam ENT Exam: Mucous Membranes Moist - Neck Exam Neck exam: Positive for: Normal Inspection - Respiratory Exam Respiratory Exam: Clear to Auscultation Bilateral, NORMAL BREATHING PATTERN - Cardiovascular Exam Cardiovascular Exam: REGULAR RHYTHM, +S1, +S2 - GI/Abdominal Exam GI & Abdominal Exam: Normal Bowel Sounds, Soft - Extremities Exam Extremities exam: Positive for: normal inspection - Neurological Exam Neurological exam: Altered Additional comments: Able to squeeze hands, able to discriminate between touch depending on side of face and location by nodding head yes or no. - Skin Skin Exam: Normal Color, Warm Results - Vital Signs Recent Vital Signs: Last Vital Signs Temp 97.1 F L 04/10/17 08:03 Pulse 85 04/10/17 08:03 Resp 24 04/10/17 08:03 BP 141/103 H 04/10/17 08:03 Pulse Ox 93 L 04/10/17 07:40 - Labs Result Diagrams: 04/10/17 05:00 04/10/17 05:00 Labs: Laboratory Results - last 24 hr 04/10/17 04/10/17 04/10/17 05:00 05:00 05:00 WBC 11.8 H RBC 4.41 Hgb 14.8 Hct 43.4 MCV 98.4 MCH 33.6 MCHC 34.1 RDW 12.9 Plt Count 247 MPV 10.7 Gran % 87.9 H Lymph % (Auto) 7.6 L Armstrong % (Auto) 4.2 Eos % (Auto) 0.1 L Baso % (Auto) 0.2 Gran # 10.36 H Lymph # 0.9 L Armstrong # 0.5 Eos # 0.0 Baso # 0.02 PT 23.4 H INR 2.17 H APTT 40.0 H Sodium 142 Potassium 3.7 Chloride 103 Carbon Dioxide 31 Anion Gap 12 BUN 16 Creatinine 1.4 Est GFR ( Amer) > 60 Est GFR (Non-Af Amer) 52 Random Glucose 156 H Calcium 9.0 Phosphorus 2.7 Magnesium 1.9 Total Bilirubin 0.7 AST 33 ALT 25 Alkaline Phosphatase 61 Total Protein 6.8 Albumin 3.3 Globulin 3.4 Albumin/Globulin Ratio 1.0 L Triglycerides 57 Cholesterol 111 L LDL Cholesterol Direct 48 HDL Cholesterol 40 Assessment & Plan - Assessment and Plan (Free Text) Plan: Assessment 62 year old male presenting with AMS Plan 1. ICH - Labetalol IV q6 - Neuro consulted - Neurosurg consulted - CT head to be repeated at 8:00 am - neuro checks q1 - vitals q 2 - fall precautions - NPO - head above bed 30 degrees - FFP due to pt being on warfarin, Vit K started in ED 2. HTN - Labetalol IV q6 - Continue to monitor BP DVT/GI prophylaxis - SCDs/Protonix <Jigna CISNEROS,Christian - Last Filed: 04/11/17 12:30> Meds - Medications Medications: Current Medications Sodium Chloride (Sodium Chloride 0.9%) 1,000 mls @ 100 mls/hr IV .Q10H [facility] Last Admin: 04/10/17 08:59 Dose: 100 mls/hr Levetiracetam (Keppra 500mg Ivpb) 500 mg in 100 mls @ 400 mls/hr IVPB Q12 [facility] Last Admin: 04/11/17 10:03 Dose: 400 mls/hr Labetalol HCl (Trandate) 10 mg IV Q6 PRN PRN Reason: SBP >160 Pantoprazole Sodium (Protonix Inj) 40 mg IVP DAILY [facility] Last Admin: 04/11/17 09:50 Dose: 40 mg Results - Vital Signs Recent Vital Signs: Last Vital Signs Temp 98.3 F 04/11/17 08:00 Pulse 87 04/11/17 10:00 Resp 17 04/11/17 10:00 BP 141/80 04/11/17 10:00 Pulse Ox 93 L 04/11/17 10:00 - Labs Result Diagrams: 04/11/17 05:00 04/11/17 05:00 Labs: Laboratory Results - last 24 hr 04/10/17 04/10/17 04/10/17 13:46 16:20 22:11 WBC RBC Hgb Hct MCV MCH MCHC RDW Plt Count MPV Gran % Lymph % (Auto) [place] % (Auto) Eos % (Auto) Baso % (Auto) Gran # Lymph # Armstrong # Eos # Baso # PT INR Sodium Potassium Chloride Carbon Dioxide Anion Gap BUN Creatinine Est GFR ( Amer) Est GFR (Non-Af Amer) POC Glucose (mg/dL) 97 111 H 100 Random Glucose Calcium Troponin I NT-Pro-B Natriuret Pep 04/11/17 04/11/17 04/11/17 05:00 05:00 08:00 WBC 7.1 D RBC 4.37 Hgb 14.7 Hct 44.8 MCV 102.5 D MCH 33.6 MCHC 32.8 RDW 13.5 Plt Count 234 MPV 10.2 Gran % 61.7 Lymph % (Auto) 27.3 [place] % (Auto) 9.1 H Eos % (Auto) 1.8 Baso % (Auto) 0.1 Gran # 4.39 Lymph # 2.0 Armstrong # 0.7 H Eos # 0.1 Baso # 0.01 PT 11.8 INR 1.09 H Sodium 142 Potassium 4.1 Chloride 106 Carbon Dioxide 30 Anion Gap 10 BUN 18 Creatinine 1.4 Est GFR ( Amer) > 60 Est GFR (Non-Af Amer) 52 POC Glucose (mg/dL) Random Glucose 107 Calcium 8.8 Troponin I < 0.01 NT-Pro-B Natriuret Pep 189 Attending/Attestation - Attestation I have personally seen and examined this patient.: Yes I have fully participated in the care of the patient.: Yes I have reviewed all pertinent clinical information: Yes Notes (Text): -I agree with the above ICU consult note completed by the resident physician with the following additions and/or changes: -The patient is a 62 year old man with a reported (per son) history of DVT (on Coumadin), CVA (with residual right-sided hemiparesis and aphasia), HTN and NIDDM, who is being admitted to the ICU with a small acute right basal ganglia bleed. Of note, due to Coumadin use, his INR is 2.9. We will give both Vit K and FFP's to normalize his INR. Also, hourly neuro checks, fall precautions, HOB >30 degrees. Neurology and neurosurgery have also been consulted. Repeat CT- head in AM to see if bleed is expanding or not. Patient may ultimately require an IVC filter in the long run.
[2017-04-10 08:54] VITALS: BMI 35.9
--- NOTE | 2017-04-10 09:26 | CP.PCM.HP ---
History of Present Illness - History of Present Illness History of Present Illness: CC: worsening Aphasia and ?Seizure History of Present Illness: History from the Son and the Record A 62yoM w/PMH sig for CVA w/R hemiplegia with Aphasia (2008) evaluated for worsened expressive aphasia and inability to swallow so much so that he missed his medications. Daughter reports recent loss of family member (son), pt has been "slow" in the mornings. Morning prior to evaluation, pt was no able to vocalize- baseline pt can say "Yes, No" and could not swallow food/medications/ fluids. Daughter reports pt was able to swallow food and liquid on day prior to symptom onset. Pt is able to gesture and indicate with eyes, daughter asked if pt wanted to go to hospital throughout day prior to evaluation with pt continually declining. Daughter finally called EMS due to inability of patient to take medications/swallow. Daughter also reports that pt's tongue is swollen and he is indicating that he is having abdominal pain. Denies emesis, fevers, or chills. Present on Admission - Present on Admission Any Indicators Present on Admission: Yes History of DVT/PE: Yes History of Uncontrolled Diabetes: Yes Urinary Catheter: No Decubitus Ulcer Present: No Review of Systems - Review of Systems All systems: reviewed and no additional remarkable complaints except - Neurological Neurological: As Per HPI, Focal Weakness Past Patient History - Infectious Disease Hx of Infectious Diseases: None - Past Medical History & Family History Past Medical History?: Yes Past Family History: Reviewed and not pertinent - Past Social History Smoking Status: Never Smoked Alcohol: None Drugs: Denies - CARDIAC Hx Cardiac Disorders: Yes (DVT) Hx Atrial Fibrillation: Yes Hx Cardia Arrhythmia: Yes Hx Congestive Heart Failure: No Hx Hypertension: Yes Hx Peripheral Edema: Yes (+4 pitting) - PULMONARY Hx Respiratory Disorders: Yes Hx Chronic Obstructive Pulmonary Disease (COPD): No Hx Pneumonia: Yes - NEUROLOGICAL Hx Neurological Disorder: Yes HX Cerebrovascular Accident: Yes (approx ly 6 yrs ago) Hx Paralysis: Yes Hx Seizures: Yes Other/Comment: Right side Hemiplagia , Aphasia - HEENT Hx HEENT Problems: No - RENAL Hx Chronic Kidney Disease: No Hx Renal Failure: No - ENDOCRINE/METABOLIC Hx Endocrine Disorders: Yes Hx Diabetes Mellitus Type 1: No Hx Diabetes Mellitus Type 2: Yes Hx Hypothyroidism: No - HEMATOLOGICAL/ONCOLOGICAL Hx Blood Disorders: Yes Hx Blood Transfusions: Yes Hx Blood Transfusion Reaction: (UNK) - INTEGUMENTARY Hx Dermatological Problems: No - MUSCULOSKELETAL/RHEUMATOLOGICAL Hx Musculoskeletal Disorders: Yes Hx Falls: Yes (past) - GASTROINTESTINAL Hx Gastrointestinal Disorders: Yes Hx Gall Bladder Disease: Yes (gallstones) Other/Comment: ercp Billary stent - GENITOURINARY/GYNECOLOGICAL Hx Genitourinary Disorders: Yes Hx Incontinence: Yes - PSYCHIATRIC Hx Psychophysiologic Disorder: No Hx Substance Use: No - SURGICAL HISTORY Hx Cholecystectomy: Yes Other/Comment: uto - ANESTHESIA Hx Anesthesia Reactions: (UNK) Hx Malignant Hyperthermia: (UNK) Meds Allergies/Adverse Reactions: Allergies Allergy/AdvReac Type Severity Reaction Status Date / Time No Known Allergies Allergy Verified 12/09/16 11:50 Physical Exam - Constitutional Appears: Well, No Acute Distress, Other - Head Exam Head Exam: ATRAUMATIC, NORMAL INSPECTION, NORMOCEPHALIC - Eye Exam Eye Exam: EOMI, Normal appearance, PERRL Pupil Exam: NORMAL ACCOMODATION, PERRL - ENT Exam ENT Exam: Mucous Membranes Moist, Normal Exam - Neck Exam Neck exam: Positive for: Normal Inspection. Negative for: Tenderness, Thyromegaly - Respiratory Exam Respiratory Exam: Clear to Auscultation Bilateral, NORMAL BREATHING PATTERN. absent: Rales - Cardiovascular Exam Cardiovascular Exam: REGULAR RHYTHM, +S1, +S2. absent: JVD, RRR - GI/Abdominal Exam GI & Abdominal Exam: Normal Bowel Sounds, Soft. absent: Rebound, Rigid, Tenderness - Extremities Exam Extremities exam: Positive for: pedal edema (+++). Negative for: calf tenderness - Back Exam Back exam: NORMAL INSPECTION. absent: CVA tenderness (L), CVA tenderness (R) - Neurological Exam Neurological exam: Alert, CN II-XII Intact Additional comments: Bedbound - Psychiatric Exam Psychiatric exam: Anxious, Flat Affect - Skin Skin Exam: Dry, Intact, Normal Color, Warm Results - Vital Signs Recent Vital Signs: Last Vital Signs Temp 97.1 F L 04/10/17 08:03 Pulse 91 H 04/10/17 08:13 Resp 22 04/10/17 08:30 BP 141/103 H 04/10/17 08:13 Pulse Ox 93 L 04/10/17 07:40 - Labs Result Diagrams: 04/14/17 11:00 04/14/17 11:00 Labs: Laboratory Results - last 24 hr 04/10/17 04/10/17 04/10/17 05:00 05:00 05:00 WBC 11.8 H RBC 4.41 Hgb 14.8 Hct 43.4 MCV 98.4 MCH 33.6 MCHC 34.1 RDW 12.9 Plt Count 247 MPV 10.7 Gran % 87.9 H Lymph % (Auto) 7.6 L [place] % (Auto) 4.2 Eos % (Auto) 0.1 L Baso % (Auto) 0.2 Gran # 10.36 H Lymph # 0.9 L [place] # 0.5 Eos # 0.0 Baso # 0.02 PT 23.4 H INR 2.17 H APTT 40.0 H Sodium 142 Potassium 3.7 Chloride 103 Carbon Dioxide 31 Anion Gap 12 BUN 16 Creatinine 1.4 Est GFR ( Amer) > 60 Est GFR (Non-Af Amer) 52 Random Glucose 156 H Calcium 9.0 Phosphorus 2.7 Magnesium 1.9 Total Bilirubin 0.7 AST 33 ALT 25 Alkaline Phosphatase 61 Total Protein 6.8 Albumin 3.3 Globulin 3.4 Albumin/Globulin Ratio 1.0 L Triglycerides 57 Cholesterol 111 L LDL Cholesterol Direct 48 HDL Cholesterol 40 - EKG Data EKG shows normal: Sinus rhythm, [place], Intervals, QRS complexes, ST-T waves Rate: Tachycardia - Imaging and Cardiology CT scan - head Status: Report reviewed by me Additional comment: COMPARISON: CT - HEAD W/O CONTRAST 11/20/2015 12:24:40 AM FINDINGS: There is atrophy. There is chronic small vessel ischemic disease. There is a 1.1 x 1.4 cm parenchymal bleed in the right basal ganglia. No mass effect or midline shift. There is a small area of low attenuation in the left basal ganglia consistent with old lacunar infarct. There is ex vacuo dilatation of the adjacent left lateral ventricle. No significant fluid in the sinuses. The osseous structures are normal. IMPRESSION: Small intraparenchymal bleed right basal ganglia. Chest x-ray Status: Report reviewed by me Additional comment: No Active disease Assessment & Plan (1) CVA (cerebrovascular accident due to intracerebral hemorrhage) Assessment and Plan: Aphasia Right Hemiplegia Urinary Incontinence Bedbpound Therapeutic INR Admit to ICU Coumadin held Neuor check q1h Neurosurgery and Neurology Consult Seizure Prophylaxis NPO Reposition Q2hrs (High Risk for skin Breakdown) Speech and Swallow evaluation Repeat CT head for AMS and in 24-48hrs Fasting Lipid Profile and HgA1C Status: Acute (2) H/O deep venous thrombosis Assessment and Plan: Repeat Venous Doppler, and if Negative SCD No Anticoagulation due to ICH Status: Resolved (3) Essential (primary) hypertension Assessment and Plan: Keep Blood Pressure SBP about 140-150 Status: Chronic
--- NOTE | 2017-04-10 10:59 | RAD ---
HISTORY: CVA. Technique: Single view portable semi erect @ 01:25. COMPARISON: 09/27/2016 FINDINGS: LUNGS: No active pulmonary disease. PLEURA: No significant pleural effusion identified, no pneumothorax apparent. CARDIOVASCULAR: No radiographic findings to suggest acute or significant cardiovascular disease. OSSEOUS STRUCTURES: No significant abnormalities. VISUALIZED UPPER ABDOMEN: Normal. OTHER FINDINGS: None. IMPRESSION: No active disease. No significant interval change compared to the prior examination(s). Please note: No preliminary report/ innterpretation of this examination provided by emergency department personnel.
--- NOTE | 2017-04-10 11:31 | PN ---
DATE: 04/10/2017 AIRPLANE MECHANIC APPRENTICE NOTE SUBJECTIVE: The patient is resting and in no acute distress. No present coughing or congestion. The patient presented with intracerebral hemorrhage and noted to have aphagia as well as dysphagia. Has an old history of CVA and right-sided weakness. PHYSICAL EXAMINATION: VITAL SIGNS: Temperature is 97.1, pulse is 85, respirations are 24, blood pressure is 141/103. SKIN: Warm and dry. HEENT: Head is atraumatic and normocephalic. Eyes: Reactive to light. Ear, nose and throat: Seem to be within normal limits. NECK: Supple. No JVD. No thyroid enlargement. No lymph nodes. HEART: Regular rate and rhythm. Normal S1 and S2. LUNGS: Reveal good breath sounds bilaterally. ABDOMEN: Soft, nontender, normal bowel sounds. GENITALIA: Deferred. RECTAL: Deferred. MUSCULOSKELETAL: No joint deformities. EXTREMITIES: Reveal trace lower extremity edema. NEUROLOGIC: The patient has weakness on the right side as well as aphagia and dysphagia. LABORATORY DATA: Reveal white count of 11.8, hemoglobin of 14.8, hematocrit 43.4 with platelets of 247,000. The patient's PT is 23.4, INR is 2.17, PTT is 40.0. Sodium is 142, potassium 3.7, chloride 103, CO2 of 31 with BUN of 16, creatinine of 1.4, glucose of 60. CT of the head reveals various small intraparenchymal bleed right basal ganglia. IMPRESSION: The patient has intracerebral hemorrhage in the area of the right basal ganglia resulting in aphagia and dysphasia. He has history of old cerebrovascular accident and right-sided weakness. The patient has history of deep venous thrombosis and at this he is anticoagulated with Coumadin and has history of diabetes as well as hypertension. PLAN: The patient was given vitamin K and is scheduled for FFP to counteract the coagulopathy. The patient also will be given O2 via nasal cannula to support his O2 saturation. We will continue with neuro checks and neurology and neurosurgery has been consulted. The patient is on Protonix, IV fluids, normal saline and labetalol. We will continue to monitor closely and treat aggressively along with the other consultants and the primary care doctor note that with the patient having coagulopathy due to Coumadin for the treatment of DVT. At this time, Coumadin is being held and consideration for IVC filter should be in our discussion. Adrian Uriostegui MD
--- NOTE | 2017-04-10 12:00 | CP.PCM.PN ---
Subjective - Date & Time of Evaluation Date of Evaluation: 04/10/17 Time of Evaluation: 11:59 - Subjective Subjective: 1 cm thalamic hemmorage not surgical pathology should be followed by neurology Objective - Vital Signs/Intake and Output Vital Signs (last 24 hours): Temp Pulse Resp BP Pulse Ox 97.1 F L 91 H 22 141/103 H 100 04/10/17 08:03 04/10/17 08:13 04/10/17 08:30 04/10/17 08:13 04/10/17 07:46 Intake and Output: 04/10/17 04/10/17 06:59 18:59 Output Total 300 Balance -300 - Medications Medications: Current Medications Sodium Chloride (Sodium Chloride 0.9%) 1,000 mls @ 100 mls/hr IV .Q10H AMOS Last Admin: 04/10/17 08:59 Dose: 100 mls/hr Levetiracetam (Keppra 500mg Ivpb) 500 mg in 100 mls @ 400 mls/hr IVPB Q12 AMOS Labetalol HCl (Trandate) 10 mg IV Q6 PRN PRN Reason: SBP >160 Pantoprazole Sodium (Protonix Inj) 40 mg IVP DAILY AMOS Last Admin: 04/10/17 09:04 Dose: 40 mg - Labs Labs: 04/10/17 05:00 04/10/17 05:00 PT 23.4 Seconds (9.9-11.8) H 04/10/17 05:00 INR 2.17 (0.93-1.08) H 04/10/17 05:00 APTT 40.0 Seconds (23.7-30.8) H 04/10/17 05:00
--- NOTE | 2017-04-10 14:04 | CON ---
CARDIOLOGY CONSULT REASON FOR CONSULTATION: Acute CVA. HISTORY OF PRESENT ILLNESS: The patient is a 62 years old [place] male who has a history of CVA in 2008 that left him with right hemiplegia and expressive aphasia. The patient was practically bedridden since then with help to use the wheelchair; however, he had diapers for his bowel movement. The patient was brought in because of inability to talk and swallow as well as poor responsiveness. The patient's head CT scan that was performed in emergency room revealed small intraparenchymal bleed of the right basal ganglia. According to the patient's son who was at the bedside, the patient has no history of heart attack in the past. According to the patient's daughter, the patient may have seized yesterday a little bit for a brief period when he was coughing. The patient has no prior history of seizures after his stroke in 2008. According to the son, the 2009 stroke was related to cerebral bleeding. SOCIAL HISTORY: Nonsmoker. He lives with his son. MEDICATIONS: Keppra 500 mg intravenously q. 12 hours, Protonix 40 mg intravenously once a day, normal saline 100 mL an hour, labetalol 10 mg intravenously q. 6 hours p.r.n. for systolic blood pressure above 160. Home medications include Lopressor, Nexium, potassium chloride, metformin, Coumadin 3 mg daily, and Lasix 40 mg daily. PHYSICAL EXAMINATION: GENERAL: The patient is middle-aged male who does not appear to be in respiratory distress. He is verbally aphasic, but follows commands. VITAL SIGNS: Blood pressure 141/70, heart rate 88, temperature 98, respirations 16. HEENT: No pallor or icterus. NECK: No JVD. CHEST: Clear. HEART: S1 and S2 regular. ABDOMEN: Soft. EXTREMITIES: No edema. LABORATORY DATA: Hemoglobin and hematocrit 14.8 and 43.4, white count 11.8, platelet count 247,000. Today's SMA-7 is within normal limits except for a glucose of 156. One set of troponin is negative. Total cholesterol is 120, LDL cholesterol and HDL cholesterol are within normal limits. INR is 2.17, PTT 40, PT 23.4. EKG revealed sinus tachycardia at rate of 107. Echocardiograph study performed in November of last year revealed normal chamber size and normal left ventricular systolic function, borderline LVH, mild tricuspid insufficiency. ASSESSMENT: 1. Right basal ganglia bleeding. 2. History of previous cerebrovascular accident in 2008 with dense right hemiplegia and expressive aphasia. 3. Hypertension. RECOMMENDATIONS: Continue current IV Keppra 500 mg twice a day, continue IV Protonix 40 mg once a day, and labetalol at 10 mg intravenously every 6 hours for systolic blood pressure above 160. Obtain an echocardiogram. The patient is not a suitable candidate for antiplatelet or anticoagulation, both are absolutely contraindicated. The recent venous Doppler lower extremity done on of this month was negative for DVT. The indication of Coumadin therapy as an outpatient is not clear to me at this point; however, the patient was not coagulopathic at the time he developed the basal ganglia bleed. Stanislav Robledo MD
--- NOTE | 2017-04-10 19:41 | CARD ---
APPROVED REPORT EKG Measurement Heart [id number] <Conclusion> Sinus tachycardia Otherwise normal ECG
[2017-04-10] MEDS: levETIRAcetam 500mg IVPB 500 MG/100 ML BAG IVPB SCH (21:34)
--- NOTE | 2017-04-11 02:25 | CON ---
HISTORY OF PRESENT ILLNESS: This is a 62-year-old male with past medical history of stroke in 2008 and with residual right hemiplegia and aphasia, brought here because it was inability to talk and difficulty swallowing and poor responsiveness. CAT scan of the head was done in the emergency room, showed right basal ganglia bleed and called to evaluate the patient and Neurosurgery was also called and no intervention was advised. SOCIAL HISTORY: He lives with his son, nonsmoker. MEDICATIONS: Keppra and labetalol. HOME MEDICATIONS: Lopressor, Nexium, metformin and Coumadin. Called to evaluate the patient. PHYSICAL EXAMINATION HEENT: Normocephalic, atraumatic. NECK: Supple. GENERAL: The patient is awake, aphasic, but follows simple commands. VITAL SIGNS: Blood pressure 141/70. NEUROLOGIC: Cranial nerves II through XII are tested. Pupils are reactive. EOMI intact. Visual miranda full. No facial asymmetry. Tongue midline. Motor exam: Residual weakness on the right side and able to move the left side. Deep tendon reflexes 1+, plantars are downgoing. IMPRESSION: Right basal ganglia bleed, previous stroke in 2008 with dense right hemiplegia, expressive aphasia and hypertension. The patient is on Keppra. Continue present management and control the blood pressure. We will follow it up. Renzo Tilley MD
[2017-04-11 06:01] LABS: BASO # 0.01 K/mm3 (0.0-2.0); BASO % 0.1 % (0.0-3.0); EOS # 0.1 (0.0-0.7); EOS % 1.8 % (1.5-5.0); GRAN # 4.39 (1.4-6.5); GRAN % 61.7 % (50.0-68.0); HEMATOCRIT 44.8 % (42.0-52.0); LYMPH % 27.3 % (22.0-35.0); MEAN CORPUSCULAR HEMOGLOBIN 33.6 pg (25.0-35.0); MEAN CORPUSCULAR HGB CONC 32.8 g/dl (31.0-37.0); MEAN PLATELET VOLUME 10.2 fl (7.0-11.0); MONO # 0.7 (0.1-0.6); MONO % 9.1 % (1.0-6.0); RED CELL DISTRIBUTION WIDTH 13.5 % (11.5-14.5); WHITE BLOOD COUNT 7.1 10^3/ul (4.5-11.0)
[2017-04-11 06:34] LABS: BLOOD UREA NITROGEN 18 mg/dL (7-21); CALCIUM 8.8 mg/dL (8.4-10.5); CARBON DIOXIDE 30 mmol/L (21-33); CHLORIDE 106 mmol/L (98-107); GFR AFRICAN-AMERICAN > 60; GLUCOSE,RANDOM 107 mg/dL (70-110); POTASSIUM 4.1 mmol/L (3.6-5.0); SODIUM 142 mmol/L (132-148)
[2017-04-11 06:39] LABS: MEAN CELL VOLUME 102.5 fl (80.0-105.0)
[2017-04-11 07:10] LABS: TROPONIN I < 0.01 ng/mL
[2017-04-11] MEDS ORDERED: Phytonadione 10 MG in Sodium Chloride 0.9% 50 ML IV ONE (07:11)
[2017-04-11 08:35] LABS: INR 1.09 (0.93-1.08)
[2017-04-11] MEDS: levETIRAcetam 500mg IVPB 500 MG/100 ML BAG IVPB SCH (10:03)
--- NOTE | 2017-04-11 10:17 | CP.PCM.PN ---
<Payal Back - Last Filed: 04/11/17 15:56> Subjective - Date & Time of Evaluation Date of Evaluation: 04/11/17 Time of Evaluation: 10:14 - Subjective Subjective: Neurology Progress Note for Faizan Goodwin PGY2 Patient seen and examined at bedside. As per nursing, there were no acute overnight events. Patient is awake and alert. He is non-verbal but nods yes and no to questions. He is A&O x3. Daughter is at bedside. Patient denies having any CP, SOB, new weakness, vision changes, pain, n/v/d. Objective - Vital Signs/Intake and Output Vital Signs (last 24 hours): Temp Pulse Resp BP Pulse Ox 98.2 F 91 H 18 147/98 H 94 L 04/11/17 04:00 04/11/17 06:00 04/11/17 06:00 04/11/17 06:00 04/11/17 04:00 Intake and Output: 04/11/17 04/11/17 06:59 18:59 Intake Total 200 Output Total 51 Balance 149 - Medications Medications: Current Medications Sodium Chloride (Sodium Chloride 0.9%) 1,000 mls @ 100 mls/hr IV .Q10H AMOS Last Admin: 04/10/17 08:59 Dose: 100 mls/hr Levetiracetam (Keppra 500mg Ivpb) 500 mg in 100 mls @ 400 mls/hr IVPB Q12 AMOS Last Admin: 04/11/17 10:03 Dose: 400 mls/hr Labetalol HCl (Trandate) 10 mg IV Q6 PRN PRN Reason: SBP >160 Pantoprazole Sodium (Protonix Inj) 40 mg IVP DAILY AMOS Last Admin: 04/11/17 09:50 Dose: 40 mg - Labs Labs: 04/11/17 05:00 04/11/17 05:00 PT 11.8 Seconds (9.9-11.8) 04/11/17 08:00 INR 1.09 (0.93-1.08) H 04/11/17 08:00 APTT 40.0 Seconds (23.7-30.8) H 04/10/17 05:00 - Constitutional Appears: No Acute Distress - Head Exam Head Exam: ATRAUMATIC, NORMAL INSPECTION, NORMOCEPHALIC - Eye Exam Eye Exam: Normal appearance, PERRL Pupil Exam: NORMAL ACCOMODATION - ENT Exam ENT Exam: Mucous Membranes Moist - Respiratory Exam Respiratory Exam: Clear to Ausculation Bilateral, NORMAL BREATHING PATTERN. absent: Rales, Rhonchi, Wheezes - Cardiovascular Exam Cardiovascular Exam: REGULAR RHYTHM, +S1, +S2. absent: Gallop, Rubs, Murmur - GI/Abdominal Exam GI & Abdominal Exam: Soft, Normal Bowel Sounds. absent: Tenderness, Mass, Rebound - Extremities Exam Extremities Exam: Pedal Edema (+ 4 bilaterally ). absent: Calf Tenderness - Neurological Exam Neurological Exam: Alert, Awake, Oriented x3 Neuro motor strength exam: Left Upper Extremity: 4, Right Upper Extremity: 0, Left Lower Extremity: 4, Right Lower Extremity: 0 Additional comments: Pt is aphasic which his around his baseline from previous CVA as per family - Psychiatric Exam Psychiatric exam: Normal Affect, Normal Mood - Skin Skin Exam: Dry, Normal Color, Warm Assessment and Plan - Assessment and Plan (Free Text) Assessment: This is a 62Y M with PMH HTN, DM, GERD, CVA with R residual weakness and aphasia , DVT on Coumadin who came to ED for difficulty swallowing and poor responsiveness. Patient was found to have R basal ganglia bleed on CT head. Patient was on Coumadin at home and was therapeutic level on admission. Plan: - No surgical intervention as per neurosurgery - Hold anticoagulation for 3 weeks - Keep HOB elevated 30 degrees - Maintain SBP 120-130s- Continue labetolol - Maintain euglycemia - D/C Keppra - Physical therapy - Repeat head CT if pt has new neurologic deficits - Pt noted to have significant edema in LE bilaterally- will obtain U/S of legs to r/o DVT Recommend subacute rehab. Thank you for this consultation. Will sign off. Please re-consult if needed. Case seen, discussed and reviewed with attending, Dr. Tilley. Faizan Back PGY2 <Rasta Tilley - Last Filed: 04/11/17 16:22> Objective - Vital Signs/Intake and Output Vital Signs (last 24 hours): Temp Pulse Resp BP Pulse Ox 98.3 F 87 25 H 151/97 H 91 L 04/11/17 08:00 04/11/17 14:00 04/11/17 14:00 04/11/17 14:00 04/11/17 14:00 Intake and Output: 04/11/17 04/11/17 06:59 18:59 Intake Total 200 1570 Output Total 51 254 Balance 149 1316 - Medications Medications: Current Medications Sodium Chloride (Sodium Chloride 0.9%) 1,000 mls @ 100 mls/hr IV .Q10H AMOS Last Admin: 04/10/17 08:59 Dose: 100 mls/hr Labetalol HCl (Trandate) 10 mg IV Q6 PRN PRN Reason: SBP >160 Pantoprazole Sodium (Protonix Inj) 40 mg IVP DAILY AMOS Last Admin: 04/11/17 09:50 Dose: 40 mg - Labs Labs: 04/11/17 05:00 04/11/17 05:00 PT 11.8 Seconds (9.9-11.8) 04/11/17 08:00 INR 1.09 (0.93-1.08) H 04/11/17 08:00 APTT 40.0 Seconds (23.7-30.8) H 04/10/17 05:00 Attending/Attestation - Attestation I have personally seen and examined this patient.: Yes I have fully participated in the care of the patient.: Yes I have reviewed all pertinent clinical information, including history, physical exam and plan: Yes
--- NOTE | 2017-04-11 12:06 | CP.PCM.PN ---
Subjective - Date & Time of Evaluation Date of Evaluation: 04/11/17 Time of Evaluation: 07:30 - Subjective Subjective: Patient seen and examined on rounds. Patient with R basal ganglia bleed, with history of CVA 2009 with dense R hemiplegia, aphasia. No major complaints. Objective - Vital Signs/Intake and Output Vital Signs (last 24 hours): Temp Pulse Resp BP Pulse Ox 98.3 F 87 15 159/98 H 92 L 04/11/17 08:00 04/11/17 08:00 04/11/17 08:00 04/11/17 08:00 04/11/17 08:00 Intake and Output: 04/11/17 04/11/17 06:59 18:59 Intake Total 200 1170 Output Total 51 50 Balance 149 1120 - Medications Medications: Current Medications Sodium Chloride (Sodium Chloride 0.9%) 1,000 mls @ 100 mls/hr IV .Q10H AMOS Last Admin: 04/10/17 08:59 Dose: 100 mls/hr Levetiracetam (Keppra 500mg Ivpb) 500 mg in 100 mls @ 400 mls/hr IVPB Q12 AMOS Last Admin: 04/11/17 10:03 Dose: 400 mls/hr Labetalol HCl (Trandate) 10 mg IV Q6 PRN PRN Reason: SBP >160 Pantoprazole Sodium (Protonix Inj) 40 mg IVP DAILY AMOS Last Admin: 04/11/17 09:50 Dose: 40 mg - Labs Labs: 04/11/17 05:00 04/11/17 05:00 PT 11.8 Seconds (9.9-11.8) 04/11/17 08:00 INR 1.09 (0.93-1.08) H 04/11/17 08:00 APTT 40.0 Seconds (23.7-30.8) H 04/10/17 05:00 - Constitutional Appears: Well, Non-toxic, No Acute Distress - Head Exam Head Exam: ATRAUMATIC, NORMAL INSPECTION - ENT Exam ENT Exam: Mucous Membranes Moist - Neck Exam Neck Exam: Full ROM - Respiratory Exam Respiratory Exam: Clear to Ausculation Bilateral, NORMAL BREATHING PATTERN - Cardiovascular Exam Cardiovascular Exam: REGULAR RHYTHM, +S1, +S2 - GI/Abdominal Exam GI & Abdominal Exam: Soft, Normal Bowel Sounds - Neurological Exam Neuro motor strength exam: Left Upper Extremity: 4, Right Upper Extremity: 2/1, Left Lower Extremity: 4, Right Lower Extremity: 2/1 Assessment and Plan - Assessment and Plan (Free Text) Assessment: 62yo male a/w R basal ganglia bleed IPH, R Basal Ganglia Hx of CVA 2009 with R hemiplegia, aphasia HTN Hx of DVT on A/C Recommend: - supp o2 as needed - no acute ID issues - BP control - INR normalized after FFP, VitK - ECHO - Speech swallow eval - cont with keppra - PT eval - Obtain LE duplex, if positive would consider an IVF filter as has contraindication to A/C - check Lipid Panel, TSH, HgbA1C - DVT ppx, SCDs if Duplex neg
--- NOTE | 2017-04-11 16:04 | US ---
HISTORY: Leg pain and swelling. Evaluate for DVT PHYSICIAN(S): John Vale MD. TECHNIQUE: Duplex sonography and color-flow Doppler with graded compression were used to evaluate the deep venous systems of both lower extremities. The exam is very limited by body habitus and edema. The lower femoral veins and tibial veins are not well seen. FINDINGS: The visualized deep venous systems of both lower extremities are sonographically normal and compressible. Normal wave forms and augmentation are seen. There is no sonographic evidence for deep venous thrombosis in the visualized segments of both lower extremities. IMPRESSION: No sonographic evidence for deep venous thrombosis in the visualized segments of both lower extremities. Very limited study.
[2017-04-11] MEDS: Labetalol 5 mg/ml Inj 20ML IV PRN (16:28)
--- NOTE | 2017-04-11 17:57 | CARD ---
APPROVED REPORT EXAM: Two-dimensional and M-mode echocardiogram with Doppler and color Doppler. INDICATION B/L LEG EDEMA,R/O CHF,CVA 2D DIMENSIONS Left Atrium (2D)3.5 (1.6-4.0cm)IVSd1.3 (0.7-1.1cm) LVDd4.5 (3.9-5.9cm)PWd1.2 (0.7-1.1cm) LVDs3.2 (2.5-4.0cm)FS (%) 28.9 % LVEF (%)55.6 (>50%) M-Mode DIMENSIONS Aortic Root3.90 (2.2-3.7cm)Aortic Cusp Exc.2.10 (1.5-2.0cm) Aortic Valve AoV Peak Sddmggal645.0cm/Sweetie Peak GR.6mmHg Mitral Valve MV E Ftzrhgfl40.2cm/sMV A Sfrttfyr67.2cm/sE/A ratio0.6 TDI Lateral E' Peak V6.14cm/sMedial E' Peak V5.46cm/sE/Lateral E'9.6 E/Medial E'10.8 Pulmonary Valve PV Peak Gnwzdvxj41.0cm/sPV Peak Grad.2mmHg Tricuspid Valve TR Peak Acpspasl023si/sRAP [id number] Peak Gr.10mmHg [id number] LEFT VENTRICLE The left ventricle is normal size. There is mild concentric left ventricular hypertrophy. The left ventricular function is normal.EF-55-60% There is normal LV segmental wall motion. Transmitral Doppler flow pattern is Grade III-reversible restrictive diastolic dysfunction. No left ventricle thrombus noted on this study. There is no ventricular septal defect visualized. There is no left ventricular aneurysm. There is no mass noted in the left ventricle. RIGHT VENTRICLE The right ventricle is normal size. There is normal right ventricular wall thickness. The right ventricular systolic function is normal. ATRIA The left atrium size is normal. The right atrium size is normal. The interatrial septum is intact with no evidence for an atrial septal defect. AORTIC VALVE The aortic valve is thickened but opens well. There is trace aortic regurgitation. There is no aortic valvular stenosis. There is no aortic valvular vegetation. MITRAL VALVE The mitral valve is thickened but opens well. Mitral annular calcification is mild to moderate. Mitral regurgitation is trace. There is no mitral valve stenosis. There is no evidence of mitral valve prolapse. TRICUSPID VALVE The tricuspid valve leaflets are thickened , but open well. There is trace tricuspid regurgitation.RVSP-20 mmof hg. There is no tricuspid valve stenosis. There is no tricuspid valve prolapse or vegetation. PULMONIC VALVE The pulmonic valve is not well visualized. GREAT VESSELS The aortic root is normal in size. The ascending aorta is normal in size. The pulmonary artery is normal. The IVC is normal in size and collapses >50% with inspiration. PERICARDIAL EFFUSION There is no pleural effusion. There is no pericardial effusion. <Conclusion> The left ventricle is normal size. There is mild concentric left ventricular hypertrophy. The left ventricular function is normal.EF-55-60% There is trace aortic regurgitation. Mitral regurgitation is trace. There is trace tricuspid regurgitation.RVSP-20 mmof hg.
--- NOTE | 2017-04-11 19:31 | PN ---
REASON FOR CONSULTATION: Followup acute CVA, cardiac evaluation. Family is at the bedside. The patient is intubated on the vent. OBJECTIVE: VITAL SIGNS: Temperature is afebrile, heart rate of 87, blood pressure of 141/80. HEENT: PERRLA. Extraocular muscles are intact. NECK: Supple. No carotid bruits. No thyromegaly. CHEST: Clear to auscultation. HEART: S1 and S2 regular. ABDOMEN: Soft. EXTREMITIES: Clubbing and cyanosis negative. LABORATORY DATA: EKG sinus tachycardiac. Blood workup as follows; WBC 7.1, hemoglobin of 14.7, hematocrit of 44.8, and platelet count of 234. Chemistry shows sodium of 140, potassium of 4.0, chloride of 106, carbon dioxide of 30, anion gap of 10, BUN of 18, and creatinine of 1.4. Troponin 0.01. IMPRESSION: History of cerebrovascular accident in 2008 with weakness, right-sided hemiplegia, history of expressive aphasia, bed ridden. The patient was brought here because of poor unresponsiveness, and we thought there is another episode of gastrointestinal bleed. The patient's echo in November last year revealed normal chamber size, left ventricular size and function, normal borderline, aortic and tricuspid insufficiency. Repeat head CT on arrival showed small intraparenchymal bleed, basal ganglia bleed, so the recurrent cerebrovascular accident, altered mental status, history of previous cerebrovascular accident in 2008, hemiplegia, hypertension. RECOMMENDATIONS: Since history of recent bleed, contraindication to anticoagulation. Continue antiseizure medications. Continue labetalol. Monitor blood pressure. We will follow with you. We will give the p.r.n. hydralazine for systolic more then 150. Thank [address] Green for providing me the opportunity in taking care of the patient. Ezio Rubio MD
--- NOTE | 2017-04-11 23:00 | CP.PCM.PN ---
Subjective - Date & Time of Evaluation Date of Evaluation: 04/11/17 Time of Evaluation: 16:00 - Subjective Subjective: Seen and examined at the bed side. Denies MARIE or visual changes. Continue to be stable Neurologically. Objective - Vital Signs/Intake and Output Vital Signs (last 24 hours): Temp Pulse Resp BP Pulse Ox 98.3 F 88 25 H 143/87 100 04/11/17 16:00 04/11/17 22:30 04/11/17 22:30 04/11/17 22:30 04/11/17 22:30 Intake and Output: 04/11/17 04/12/17 18:59 06:59 Intake Total 1920 120 Output Total 806 501 Balance 1114 -381 - Medications Medications: Current Medications Sodium Chloride (Sodium Chloride 0.9%) 1,000 mls @ 100 mls/hr IV .Q10H [facility] Last Admin: 04/10/17 08:59 Dose: 100 mls/hr Labetalol HCl (Trandate) 10 mg IV Q6 PRN PRN Reason: SBP >160 Last Admin: 04/11/17 16:28 Dose: 10 mg Pantoprazole Sodium (Protonix Inj) 40 mg IVP DAILY [facility] Last Admin: 04/11/17 09:50 Dose: 40 mg - Labs Labs: 04/11/17 05:00 04/11/17 05:00 PT 11.8 Seconds (9.9-11.8) 04/11/17 08:00 INR 1.09 (0.93-1.08) H 04/11/17 08:00 APTT 40.0 Seconds (23.7-30.8) H 04/10/17 05:00 - Constitutional Appears: No Acute Distress - Head Exam Head Exam: ATRAUMATIC, NORMAL INSPECTION, NORMOCEPHALIC - Eye Exam Eye Exam: EOMI, Normal appearance, PERRL Pupil Exam: NORMAL ACCOMODATION, PERRL - ENT Exam ENT Exam: Mucous Membranes Moist, Normal Exam - Neck Exam Neck Exam: Full ROM, Normal Inspection. absent: Lymphadenopathy - Respiratory Exam Respiratory Exam: Clear to Ausculation Bilateral, NORMAL BREATHING PATTERN - Cardiovascular Exam Cardiovascular Exam: REGULAR RHYTHM, +S1, +S2. absent: Murmur - GI/Abdominal Exam GI & Abdominal Exam: Soft, Normal Bowel Sounds. absent: Tenderness - Rectal Exam Rectal Exam: NORMAL INSPECTION - Exam Exam: Circumcision, NORMAL INSPECTION External exam: NORMAL EXTERNAL EXAM Speculum exam: NORMAL SPECULUM EXAM Bimanual exam: NORMAL BIMANUAL EXAM - Extremities Exam Extremities Exam: Full ROM, Normal Capillary Refill, Normal Inspection. absent : Joint Swelling, Pedal Edema - Back Exam Back Exam: NORMAL INSPECTION - Neurological Exam Neurological Exam: Alert, Awake, CN II-XII Intact, Normal Gait, Oriented x3 - Psychiatric Exam Psychiatric exam: Normal Affect, Normal Mood - Skin Skin Exam: Dry, Intact, Normal Color, Warm Assessment and Plan (1) CVA (cerebrovascular accident due to intracerebral hemorrhage) Assessment & Plan: Aphasia Right Hemiplegia Urinary Incontinence Bedbound Therapeutic INR Admitted to ICU Coumadin held Neuor check q1h Neurosurgery and Neurology Consult Seizure Prophylaxis NPO Reposition Q2hrs (High Risk for skin Breakdown) Speech and Swallow evaluation Repeat CT head for AMS and in 24-48hrs Fasting Lipid Profile and HgA1C Status: Acute (2) H/O deep venous thrombosis Assessment and Plan: Repeat Venous Doppler, and if Negative SCD No Anticoagulation due to ICH Status: Resolved (3) Essential (primary) hypertension Assessment and Plan: Keep Blood Pressure SBP about 140-150 Status: Chronic Status: Resolved
--- NOTE | 2017-04-12 14:32 | PN ---
DATE: 04/12/2017 REASON FOR CONSULTATION: Followup acute CVA, cardiac evaluation. SUBJECTIVE: The patient is awake and alert, not being intubated. Yesterday by mistake it was read as the patient intubated. After the previous CVA in 2008, admitted with ICB; intracerebral bleed. OBJECTIVE/PHYSICAL EXAMINATION: As follows: GENERAL: Not in apparent distress. The patient is aphasic. VITAL SIGNS: Temperature is afebrile, heart rate , and blood pressure of 140/86. HEENT: PERRLA. Extraocular muscles are intact. NECK: Supple. No carotid bruits. No thyromegaly. CHEST: Clear to auscultation. HEART: S1 and S2 regular. ABDOMEN: Soft. EXTREMITIES: Clubbing and cyanosis negative. LABORATORY DATA: Telemetry shows normal sinus rate of 80. Blood workup as follows: WBC of 7.8, hemoglobin of 14.7, hematocrit of 44.8, and platelet count of 234. Chemistry shows sodium of 142, potassium of 4.4, chloride of 106, carbon dioxide of 30, anion gap of 10, BUN of 18, and creatinine of 1.4. IMPRESSION AND PLAN: A 62-year-old male obese body mass index of 36 kg per meter square and the history of cerebrovascular accident in 2008 leading right-sided hemiplegic and expressive aphasia, bed ridden and found to be unresponsive, initially thought to be that the patient has had gastrointestinal bleed, but found to be another episode of cerebrovascular accident with intracerebral bleed. The patient had echocardiography done yesterday that showed ejection fraction of 55% to 60% trace aortic regurgitation, trace mitral regurgitation and trace tricuspid regurgitation. The patient was seen by neurosurgery and at this point no surgical intervention is warranted as per a neurosurgical recommendation and anticoagulation is on hold. Continue antiseizure medication. Continue better control the blood pressure and keep systolic around 140 or 150 to prevent any further extension of the bleed. As per neurology recommendation, maintain blood pressure 120 to 130, we will keep it and suggested to have a follow up repeat CT in a coupe of days if the patient's neurological status changes. History of deep venous thrombosis, was on Coumadin at home, which is on hold because of intracerebral bleed, right basal ganglia bleed. Since the patient's blood pressure 150 to 140 and diastolic in the range of 85 to 90, first we will start with a Catapres patch number 1 to maintain a smooth blood pressure and see the response. Further recommendation after the 24-hour monitoring the blood pressure, we will follow with you. Swallowing evaluation and we will put p.r.n. hydralazine intravenously for systolic more than 130 and will hold for systolic less than 110. We will follow with you. We will also get TSH level in the morning. Thank you for providing me the opportunity in taking care of the patient, Yadiel Lundy. Ezio Rubio MD
--- NOTE | 2017-04-12 14:34 | CT ---
PROCEDURE: CT HEAD WITHOUT CONTRAST. HISTORY: ICH follow up COMPARISON: 04/10/2017 TECHNIQUE: Axial computed tomography images were obtained through the head/brain without intravenous contrast. Radiation dose: Total exam DLP = 681 mGy-cm. This CT exam was performed using one or more of the following dose reduction techniques: Automated exposure control, adjustment of the mA and/or kV according to patient size, and/or use of iterative reconstruction technique. FINDINGS: HEMORRHAGE: There is a 12 mm acute hemorrhage in the right basal ganglia. This is stable in appearance. BRAIN: No mass effect or edema. Severe chronic microvascular changes are seen as well as atrophy left greater than right with ventricular dilatation. VENTRICLES: Unremarkable. No hydrocephalus. CALVARIUM: Unremarkable. PARANASAL SINUSES: Unremarkable as visualized. No significant inflammatory changes. MASTOID AIR CELLS: Unremarkable as visualized. No inflammatory changes. OTHER FINDINGS: None. IMPRESSION: Stable appearance of 12 mm acute hemorrhage in the right basal ganglia
[2017-04-12] MEDS: Labetalol 5 mg/ml Inj 20ML IV PRN ×2 (16:59→21:46)
--- NOTE | 2017-04-12 23:20 | CP.PCM.PN ---
Subjective - Date & Time of Evaluation Date of Evaluation: 04/12/17 Time of Evaluation: 11:55 Objective - Vital Signs/Intake and Output Vital Signs (last 24 hours): Temp Pulse Resp BP Pulse Ox 98.2 F 77 20 162/102 H 99 04/12/17 20:00 04/12/17 22:00 04/12/17 22:00 04/12/17 22:00 04/12/17 22:00 Intake and Output: 04/12/17 04/13/17 18:59 06:59 Intake Total 450 Output Total 850 Balance -400 - Medications Medications: Current Medications Clonidine HCl (Catapres Tts1 0.1 Mg/24 Hr) 1 patch TD Q7D@1000 [facility] Last Admin: 04/12/17 11:23 Dose: 1 patch Sodium Chloride (Sodium Chloride 0.9%) 1,000 mls @ 100 mls/hr IV .Q10H [facility] Last Admin: 04/10/17 08:59 Dose: 100 mls/hr Labetalol HCl (Trandate) 10 mg IV Q6 PRN PRN Reason: SBP >160 Last Admin: 04/12/17 21:46 Dose: 10 mg Pantoprazole Sodium (Protonix Inj) 40 mg IVP DAILY [facility] Last Admin: 04/12/17 11:23 Dose: Not Given - Labs Labs: 04/11/17 05:00 04/11/17 05:00 PT 11.8 Seconds (9.9-11.8) 04/11/17 08:00 INR 1.09 (0.93-1.08) H 04/11/17 08:00 APTT 40.0 Seconds (23.7-30.8) H 04/10/17 05:00 Assessment and Plan (1) CVA (cerebrovascular accident due to intracerebral hemorrhage) Assessment & Plan: Aphasia Right Hemiplegia Urinary Incontinence Bedbpound Therapeutic INR Admit to ICU Coumadin held Neuor check q1h Neurosurgery and Neurology Consult Seizure Prophylaxis NPO Reposition Q2hrs (High Risk for skin Breakdown) Speech and Swallow evaluation Repeat CT head for AMS and in 24-48hrs Fasting Lipid Profile and HgA1C Status: Acute (2) H/O deep venous thrombosis Assessment and Plan: Repeat Venous Doppler, and if Negative SCD No Anticoagulation due to ICH Status: Resolved (3) Essential (primary) hypertension Assessment and Plan: Keep Blood Pressure SBP about 140-150 Status: Chronic Status: Acute
[2017-04-13 08:05] LABS: BASO # 0.02 K/mm3 (0.0-2.0); BASO % 0.3 % (0.0-3.0); EOS # 0.1 (0.0-0.7); EOS % 2.2 % (1.5-5.0); GRAN # 4.09 (1.4-6.5); GRAN % 70.4 % (50.0-68.0); HEMATOCRIT 38.8 % (42.0-52.0); LYMPH # 1.1 (1.2-3.4); LYMPH % 18.8 % (22.0-35.0); MEAN CELL VOLUME 101.6 fl (80.0-105.0); MEAN CORPUSCULAR HGB CONC 32.5 g/dl (31.0-37.0); MEAN PLATELET VOLUME 9.9 fl (7.0-11.0); MONO # 0.5 (0.1-0.6); MONO % 8.3 % (1.0-6.0); WHITE BLOOD COUNT 5.8 10^3/ul (4.5-11.0)
[2017-04-13 08:16] LABS: ALB/GLOB RATIO 0.9 (1.1-1.8); ALKALINE PHOSPHATASE 52 U/L (38-126); ALT/SGPT 30 U/L (7-56); AST/SGOT 23 U/L (17-59); BILIRUBIN,TOTAL 0.8 mg/dL (0.2-1.3); BLOOD UREA NITROGEN 16 mg/dL (7-21); CALCIUM 8.7 mg/dL (8.4-10.5); CARBON DIOXIDE 32 mmol/L (21-33); CHLORIDE 104 mmol/L (98-107); GFR AFRICAN-AMERICAN > 60; GLUCOSE,RANDOM 109 mg/dL (70-110); MAGNESIUM 2.1 mg/dL (1.7-2.2); PHOSPHOROUS 2.9 mg/dL (2.5-4.5); SODIUM 143 mmol/L (132-148); TOTAL PROTEIN 6.6 g/dL (5.8-8.3)
--- NOTE | 2017-04-13 08:42 | PN ---
DATE: 04/11/2017 ADDENDUM: b/c ditation cut off at the end of ditation and catherine not sure it went through. so re-dictating salient features. In summary, this is a 62-year-old male with history of CVA, expressive aphasia in 2008, right-sided weakness, admitted with altered mental status, found to have a small intracerebral bleed, basal ganglia. Plan is to continue medical management. The patient had echocardiography done yesterday, that showed 55% to 60% trace aortic regurgitation, trace mitral regurgitation, trace tricuspid regurgitation, and systolic pressure of 20. We will put clonidine patch 1 mg and keep the blood pressure in the range of 130 to prevent further bleed. The patient is on IV labetalol, we will transfer to the telemetry. We will follow closely with you. Thank you Dr. Germain the opportunity in taking care of the patient, Nikkie Cotto. Ezio Rubio MD MTDFadi
[2017-04-13] MEDS: Labetalol 5 mg/ml Inj 20ML IV PRN (17:09)
--- NOTE | 2017-04-13 17:17 | PN ---
DATE: 04/13/2017 LOCATION: The patient is in room 377, bed 1. REASON FOR CONSULTATION: Followup acute CVA, cardiac evaluation. SUBJECTIVE: The patient is conscious, alert, lying in bed without any respiratory distress. The patient is aphasic due to previous CVA. PHYSICAL EXAMINATION: VITAL SIGNS: Blood pressure 144/80, respiration 15, pulse 80, temperature 96.9. HEENT: Head is normocephalic. Eyes, pupils normal. Conjunctivae normal. Nose and throat are normal. NECK: JVP low, carotid equal. Thorax AP diameter normal. LUNGS: Clear. CARDIOVASCULAR: S1 and S2. ABDOMEN: Soft and nontender. No organomegaly. EXTREMITIES: No clubbing, no cyanosis. The patient had right-sided hemiplegia and expressive aphasia. LABORATORY DATA: WBC 5.8, hemoglobin 12.6, hematocrit 38.8, platelet 213. Sodium 143, potassium 4.0, BUN 16, creatine 1.4, calcium 8.7, phosphorous 2.9, magnesium 2.1. Total protein 6.6, albumin 3.2, TSH 2.98. DIAGNOSIS: The patient had cerebrovascular accident in 2008 leading to right-sided hemiplegia . On this admission, the patient was unresponsive, found to have again cerebrovascular accident with intracerebellar bleeding. The patient is also obese, hypertension. The patient had echocardiogram on 04/11, showed LV ejection fraction 55% to 60%, trace aortic regurg, trace mitral regurg, trace tricuspid regurg. PLAN: The patient is seen by neurosurgery and no surgical intervention is planned at this time. The patient is on clonidine 0.1 mg for 24 hour, Catapres patch weekly, Protonix 40 IV daily. The patient is getting sodium chloride 0.9% 100 mL an hour, labetalol has been ordered p.r.n. 10 mg IV q. 6 hours p.r.n. Plan is to monitor the blood pressure, try to maintain the blood pressure 150 to 140 systolic and diastolic 85 to 90. We will continue followup closely with you. Ezio Armando MD
--- NOTE | 2017-04-13 20:06 | CP.PCM.PN ---
Subjective - Date & Time of Evaluation Date of Evaluation: 04/13/17 Time of Evaluation: 20:00 Objective - Vital Signs/Intake and Output Vital Signs (last 24 hours): Temp Pulse Resp BP Pulse Ox 97.9 F 85 18 166/105 H 97 04/13/17 16:00 04/13/17 17:09 04/13/17 16:00 04/13/17 17:09 04/13/17 16:00 Intake and Output: 04/13/17 04/14/17 18:59 06:59 Intake Total 480 Balance 480 - Medications Medications: Current Medications Clonidine HCl (Catapres-Tts2 0.2 Mg/24 Hr) 1 patch TD Q7D@1000 [facility] Hydralazine HCl (Apresoline) 10 mg IVP Q6 PRN PRN Reason: SBP>180 or DBP>120 Sodium Chloride (Sodium Chloride 0.9%) 1,000 mls @ 100 mls/hr IV .Q10H [facility] Last Admin: 04/10/17 08:59 Dose: 100 mls/hr Labetalol HCl (Trandate) 10 mg IV Q6 PRN PRN Reason: SBP >160 Last Admin: 04/13/17 17:09 Dose: 10 mg Pantoprazole Sodium (Protonix Inj) 40 mg IVP DAILY [facility] Last Admin: 04/13/17 10:00 Dose: 40 mg - Labs Labs: 04/13/17 07:40 04/13/17 07:40 PT 11.8 Seconds (9.9-11.8) 04/11/17 08:00 INR 1.09 (0.93-1.08) H 04/11/17 08:00 APTT 40.0 Seconds (23.7-30.8) H 04/10/17 05:00 Assessment and Plan (1) CVA (cerebrovascular accident due to intracerebral hemorrhage) Assessment & Plan: Aphasia Right Hemiplegia Urinary Incontinence Bedbpound Therapeutic INR Admit to ICU Coumadin held Neuor check q1h Neurosurgery and Neurology Consult Seizure Prophylaxis NPO Reposition Q2hrs (High Risk for skin Breakdown) Speech and Swallow evaluation Repeat CT head for AMS and in 24-48hrs Fasting Lipid Profile and HgA1C Status: Acute (2) H/O deep venous thrombosis Assessment and Plan: Repeat Venous Doppler, and if Negative SCD No Anticoagulation due to ICH Status: Resolved (3) Essential (primary) hypertension Assessment and Plan: Keep Blood Pressure SBP about 140-150 Status: Acute
--- NOTE | 2017-04-13 21:57 | CP.PCM.PN ---
Subjective - Date & Time of Evaluation Date of Evaluation: 04/13/17 Time of Evaluation: 19:30 Objective - Vital Signs/Intake and Output Vital Signs (last 24 hours): Temp Pulse Resp BP Pulse Ox 97.9 F 85 18 166/105 H 97 04/13/17 16:00 04/13/17 17:09 04/13/17 16:00 04/13/17 17:09 04/13/17 16:00 Intake and Output: 04/13/17 04/14/17 18:59 06:59 Intake Total 480 Balance 480 - Medications Medications: Current Medications Clonidine HCl (Catapres-Tts2 0.2 Mg/24 Hr) 1 patch TD Q7D@1000 [facility] Hydralazine HCl (Apresoline) 10 mg IVP Q6 PRN PRN Reason: SBP>180 or DBP>120 Sodium Chloride (Sodium Chloride 0.9%) 1,000 mls @ 100 mls/hr IV .Q10H [facility] Last Admin: 04/10/17 08:59 Dose: 100 mls/hr Labetalol HCl (Trandate) 10 mg IV Q6 PRN PRN Reason: SBP >160 Last Admin: 04/13/17 17:09 Dose: 10 mg Pantoprazole Sodium (Protonix Inj) 40 mg IVP DAILY [facility] Last Admin: 04/13/17 10:00 Dose: 40 mg - Labs Labs: 04/13/17 07:40 04/13/17 07:40 PT 11.8 Seconds (9.9-11.8) 04/11/17 08:00 INR 1.09 (0.93-1.08) H 04/11/17 08:00 APTT 40.0 Seconds (23.7-30.8) H 04/10/17 05:00 Assessment and Plan (1) CVA (cerebrovascular accident due to intracerebral hemorrhage) Status: Acute
--- NOTE | 2017-04-14 04:57 | CP.PCM.PN ---
Subjective - Date & Time of Evaluation Date of Evaluation: 04/14/17 Time of Evaluation: 04:53 (Seen earlier.) - Subjective Subjective: Patient was seen at bedside. His BP was 184/106-------> 170/103. Has No complaints. Medical record was reviewed. This 62 year old male was admitted with worsened expressive aphasia and difficulty in swallowing. Has PMH of CVA with right hemiparesis and aphaisa, HTN, DVT, atrial fibrillation , leg edema, PNA,DM II, cholelithiasis, cholecystectomy, biliary stent. Objective - Vital Signs/Intake and Output Vital Signs (last 24 hours): Temp Pulse Resp BP Pulse Ox 97.9 F 97 H 18 170/103 H 97 04/13/17 16:00 04/14/17 01:06 04/13/17 16:00 04/14/17 01:06 04/13/17 16:00 Intake and Output: 04/13/17 04/14/17 18:59 06:59 Intake Total 480 300 Output Total 2 Balance 480 298 - Medications Medications: Current Medications Clonidine HCl (Catapres-Tts2 0.2 Mg/24 Hr) 1 patch TD Q7D@1000 [facility] Last Admin: 04/13/17 23:34 Dose: 1 patch Hydralazine HCl (Apresoline) 10 mg IVP Q6 PRN PRN Reason: SBP>180 or DBP>120 Last Admin: 04/13/17 23:33 Dose: 10 mg Sodium Chloride (Sodium Chloride 0.9%) 1,000 mls @ 100 mls/hr IV .Q10H [facility] Last Admin: 04/10/17 08:59 Dose: 100 mls/hr Labetalol HCl (Trandate) 10 mg IV Q6 PRN PRN Reason: SBP >160 Last Admin: 04/13/17 17:09 Dose: 10 mg Pantoprazole Sodium (Protonix Inj) 40 mg IVP DAILY [facility] Last Admin: 04/13/17 10:00 Dose: 40 mg - Labs Labs: 04/13/17 07:40 04/13/17 07:40 PT 11.8 Seconds (9.9-11.8) 04/11/17 08:00 INR 1.09 (0.93-1.08) H 04/11/17 08:00 APTT 40.0 Seconds (23.7-30.8) H 04/10/17 05:00 - Constitutional Appears: Well, No Acute Distress - Head Exam Head Exam: ATRAUMATIC, NORMAL INSPECTION, NORMOCEPHALIC - Eye Exam Eye Exam: Normal appearance - ENT Exam ENT Exam: Normal External Ear Exam Additional comments: Aphasia. - Neck Exam Neck Exam: Normal Inspection - Respiratory Exam Respiratory Exam: NORMAL BREATHING PATTERN - Cardiovascular Exam Cardiovascular Exam: absent: JVD - GI/Abdominal Exam GI & Abdominal Exam: absent: Distended - Rectal Exam Rectal Exam: Deferred - Exam Additional comments: Deferred. - Extremities Exam Additional comments: Right hemiparesis. - Back Exam Back Exam: NORMAL INSPECTION - Neurological Exam Neurological Exam: Alert, Awake Neuro motor strength exam: Right Upper Extremity: 0, Right Lower Extremity: 0 Additional comments: right hemiparesis. - Psychiatric Exam Psychiatric exam: Normal Affect, Normal Mood - Skin Skin Exam: Normal Color Assessment and Plan - Assessment and Plan (Free Text) Assessment: Elevated blood pressure reading. HTN. Atrial fibrillation. Hx CVA. Right hemiparesis. Aphasia. DM II. Plan: Hydralazine 10 mg IV stat. Continue present management.
--- NOTE | 2017-04-14 10:08 | CT ---
PROCEDURE: CT HEAD WITHOUT CONTRAST. HISTORY: AMS and Weakness COMPARISON: CT of the head 04/12/2017 TECHNIQUE: Axial computed tomography images were obtained through the head/brain without intravenous contrast. Radiation dose: Total exam DLP = 823 mGy-cm. This CT exam was performed using one or more of the following dose reduction techniques: Automated exposure control, adjustment of the mA and/or kV according to patient size, and/or use of iterative reconstruction technique. FINDINGS: HEMORRHAGE: Stable appearance of 8 x 12 mm acute hemorrhage in the right basal ganglia. BRAIN: No mass effect or edema. Severe chronic microvascular changes left greater than right with atrophy and dilatation of the left lateral ventricle. No acute findings VENTRICLES: Atrophy with enlargement of the left lateral ventricle CALVARIUM: Unremarkable. PARANASAL SINUSES: Unremarkable as visualized. No significant inflammatory changes. MASTOID AIR CELLS: Unremarkable as visualized. No inflammatory changes. OTHER FINDINGS: None. IMPRESSION: Stable appearance of 8 x 12 mm acute hemorrhage in the right basal ganglia
--- NOTE | 2017-04-14 10:09 | RAD ---
HISTORY: [employer] COMPARISON: 04/10/2017 FINDINGS: LUNGS: No active pulmonary disease. PLEURA: No significant pleural effusion identified, no pneumothorax apparent. CARDIOVASCULAR: Normal. OSSEOUS STRUCTURES: No significant abnormalities. VISUALIZED UPPER ABDOMEN: Normal. OTHER FINDINGS: None. IMPRESSION: No active disease.
[2017-04-14] MEDS: Labetalol 5 mg/ml Inj 20ML IV PRN (10:13)
--- NOTE | 2017-04-14 10:18 | PCM.RRT ---
<Audrey Robbins - Last Filed: 04/14/17 11:14> THERAPIST Nurse Assessment - Situation Date: 04/14/17 Time THERAPIST was called: 09:20 THERAPIST Responder Arrival Time: 09:21 THERAPIST Location:: [address] [place] [address] Room Number: [id number] THERAPIST Reason for Call: Change in Mental Status THERAPIST Called By: RN - IV IV Inserted during THERAPIST?: No - Respiratory Oxygen Delivery Method: Room Air Oxygen Flow Rate: 10 Received Nebulizer Treatments:: No Was the Patient Ventilated with Bag/Mask 100% O2?: No Secretions Suctioned?: No Was the Patient Intubated?: No Was the Patient Placed on a Ventilator?: No - Medication Medications Administered During THERAPIST: zofran 4mg ivp - Diagnostic Test Ordered EKG: Yes Chest X-Ray: Yes CT Scan: Yes - Stat Labs Ordered THERAPIST Stat Labs Ordered: CBC THERAPIST Other Labs Ordered: Mg, VVG. CMP COMP CPR started during THERAPIST?: No - Vital Signs Vital Sign: Rapid Response Vital Sign Blood Pressure 157/121 Pulse Rate 120 Respiratory Rate 20 Temperature 97.5 F Oxygen Saturation 96 - Finger Stick Blood Glucose Finger Stick Blood Glucose: 156 - Sepsis Screen Part 2 Sepsis Screen Part 2: Glucose elevated, Pt not on steroids - Time THERAPIST Ended Time THERAPIST Ended: 10:00 - Vital Signs at end of THERAPIST Vital Signs at end of THERAPIST: Rapid Response End Vital Sign Blood Pressure 159/112 Pulse Rate 114 Respiratory Rate 18 Temperature 97.9 F - Recommendations Notifications: Attending Physician, Consultations, Family or Designated Caregiver I.Reason for THERAPIST - A) Acute Change in Patient: Subjective: Patient is a 62 y/o with PMH of htn, DM, 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 Patient at the time was evaluated by neurologist, recommended no surgical intervention, and holding Coumadin and asa. Patient was in the unit for a day and was transferred to [facility]. THERAPIST was called because as per patient's nurse and patient's family, patient was able to respond yes and no by nodding with his head at the baseline. However, this morning patient was not responding. Patient was also not able to move his left upper extremities as usual. Patient had episode of greenish vomiting. Upon evaluation, patient was very emotional, able to follow commands, responds to yes/no by nodding his head, no strength in upper and lower extremities. 1/5 motor strength in left upper extremities, able to wiggle his food in the right lower extremities. Patient is otherwise alert, and oriented. Greenish vomitus on the towel. Patient BP was elevated at 150s/100s, was tachy at 120s, Temp was normal, and patient was saturating at 95% on room air. Patient admits to headache, admits to nausea, and abdominal pain. - Respiratory Oxygen Delivery Method: Room Air - Constitutional Appears: Older Than Stated Age, Confused, Chronically Ill - Head Head Exam: ATRAUMATIC, NORMAL INSPECTION, NORMOCEPHALIC - Eyes Eye Exam: EOMI, Normal appearance, PERRL. absent: Scleral icterus - Respiratory Exam Respiratory Exam: Clear to Ausculation Bilateral, NORMAL BREATHING PATTERN. absent: Rales, Rhonchi, Wheezes, Respiratory Distress, Stridor - Cardiovascular Exam Cardiovascular Exam: Tachycardia, REGULAR RHYTHM, +S1, +S2. absent: Gallop, JVD - GI/Abdominal Exam GI & Abdominal Exam: Distended (mild ), Tenderness (periumbilical), Hypoactive Bowel Sounds. absent: Firm, Guarding, Rigid, Soft, Rebound - Neurological Exam Neurological Exam: Alert, Awake Additional exam: At baseline, aphasic, alert and oriented, labile emotion, 0/5 ROM of the right upper and lower extremities, 2/5 ROM of the left lower and upper extremities. 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 THERAPIST called due to worsening mentation and vomiting. Patient's BP was elevated at 157/121, HR 120. Temp was normal and saturating 95% on room air. Upon reviewing the chart, patient was hypertensive throughout the night, was giving 10 mg hydralazine IVP overnight. - Stat CT head w/o contrast to rule out any changes in the cva - stat ekg - Will obtain CBC, CMP, mag and phos, vbg w/ shock, blood culture, lipase, ua and ucx. - Flat plate to r/o obstruction - Will give 4 mg ivp Zofran for vomiting, labetalol 10 mg ivp for the bp. - Continue to monitor BP. - Neuro re-consulted - Follow up CT head result, and labs. - NPO, speech and swallow re-consulted. - NGT if patient continue to vomit - Consider surgery/Gi consult. - Patient's primary Dr Germain was notified. Patient seen, examined, and case discussed with Dr Marquez and Dr Hernandes. <Max Marquez - Last Filed: 04/14/17 16:26> THERAPIST Nurse Assessment - Vital Signs Vital Sign: Rapid Response Vital Sign Blood Pressure 157/121 Pulse Rate 120 Respiratory Rate 20 Temperature 97.5 F Oxygen Saturation 96 - Vital Signs at end of THERAPIST Vital Signs at end of THERAPIST: Rapid Response End Vital Sign Blood Pressure 159/112 Pulse Rate 114 Respiratory Rate 18 Temperature 97.9 F Attending/Attestation - Attestation I have personally seen and examined this patient.: Yes I have fully participated in the care of the patient.: Yes I have reviewed all pertinent clinical information, including history, physical exam and plan: Yes
--- NOTE | 2017-04-14 10:28 | RAD ---
HISTORY: Abdominal pain COMPARISON: No prior. FINDINGS: BOWEL: Mild dilatation of small bowel loops in the central abdomen. There is gas seen throughout the colon. There is mild retained feces. Findings may reflect an ileus. Less likely early mechanical bowel obstruction. Followup advised. BONES: Heterotopic ossification about both hips may reflect myositis ossifications. OTHER FINDINGS: Inferior vena caval filter. IMPRESSION: Nonspecific bowel gas pattern. Follow-up advised.
--- NOTE | 2017-04-14 10:49 | CARD ---
APPROVED REPORT EKG Measurement Heart [id number] <Conclusion> Sinus tachycardia Otherwise normal ECG
[2017-04-14 11:07] LABS: BASO # 0.02 K/mm3 (0.0-2.0); BASO % 0.2 % (0.0-3.0); EOS % 0.2 % (1.5-5.0); GRAN # 7.37 (1.4-6.5); GRAN % 83.3 % (50.0-68.0); HEMATOCRIT 41.6 % (42.0-52.0); LYMPH # 0.8 (1.2-3.4); LYMPH % 8.8 % (22.0-35.0); MEAN CELL VOLUME 99.8 fl (80.0-105.0); MEAN CORPUSCULAR HEMOGLOBIN 33.8 pg (25.0-35.0); MEAN CORPUSCULAR HGB CONC 33.9 g/dl (31.0-37.0); MONO # 0.7 (0.1-0.6); MONO % 7.5 % (1.0-6.0); RED CELL DISTRIBUTION WIDTH 12.7 % (11.5-14.5); WHITE BLOOD COUNT 8.9 10^3/ul (4.5-11.0)
[2017-04-14 11:09] LABS: VENOUS BLOOD GAS BASE EXCESS 3.4 mmol/L (0.0-2.0); VENOUS BLOOD PH 7.42 (7.32-7.43)
[2017-04-14 11:21] LABS: ALKALINE PHOSPHATASE 63 U/L (38-126); ALT/SGPT 21 U/L (7-56); AST/SGOT 24 U/L (17-59); BILIRUBIN,TOTAL 0.8 mg/dL (0.2-1.3); BLOOD UREA NITROGEN 15 mg/dL (7-21); CALCIUM 9.3 mg/dL (8.4-10.5); CARBON DIOXIDE 29 mmol/L (21-33); CHLORIDE 103 mmol/L (98-107); GFR AFRICAN-AMERICAN > 60; GLUCOSE,RANDOM 160 mg/dL (70-110); LIPASE 166 U/L (23-300); PHOSPHOROUS 2.7 mg/dL (2.5-4.5); POTASSIUM 3.8 mmol/L (3.6-5.0); SODIUM 141 mmol/L (132-148); TOTAL PROTEIN 7.1 g/dL (5.8-8.3)
[2017-04-14] MEDS ORDERED: Sodium Chloride 0.9% 1,000 ML IV SCH (11:21)
[2017-04-14] MEDS: Sodium Chloride 0.45% 1,000 ML IV SCH (13:00)
--- NOTE | 2017-04-14 13:54 | CP.PCM.CON ---
<Payal Back - Last Filed: 04/14/17 14:24> History of Present Illness - History of Present Illness History of Present Illness: Neurology Consult Note for Faizan Goodwin PGY2 Reason for consult: AMS This is a 62Y M with PMH HTN, DM, GERD, CVA with R residual weakness and aphasia , DVT on Coumadin, and pseudobulbar affect who was admitted for R basal ganglia hemorrhage. Patient was evaluated by neurology as well as neurosurgery. As per neurosurgery, there was no surgical intervention indicated. Coumadin and ASA were stopped. Patient was managed in ICU and transferred to floor. Neurology was re-consulted for episode of AMS. As per nurse and family, patient was not responding to his family. At baseline, he is able to nod yes or no and mouth words at times. This am, he was not saying yes or no and was not moving his L upper extremity. He then began to have multiple episodes of vomiting bile. Upon examination, patient was able to nod yes and no. He is A&O x 3 and was able to move both his L upper and lower extremity with some weakness which is his baseline. He was also able to follow commands. He was pointing to his abdomen when asked if he was in pain. He denies numbness/tingling, fever, chills, CP, vision changes or SOB. PMH: HTN, DM, GERD, CVA with R residual weakness/aphasia, DVT Home meds: As per SEP All: NKDA SH: Denies tobacco, EtOH or drug use Past Patient History - Infectious Disease Hx of Infectious Diseases: None - Past Medical History & Family History Past Medical History?: Yes Past Family History: Reviewed and not pertinent - Past Social History Smoking Status: Never Smoked Alcohol: None Drugs: Denies - CARDIAC Hx Cardiac Disorders: Yes (dvt) Hx Congestive Heart Failure: No Hx Hypertension: Yes - PULMONARY Hx Chronic Obstructive Pulmonary Disease (COPD): No - NEUROLOGICAL HX Cerebrovascular Accident: Yes (approx ly 6 yrs ago) - HEENT Hx HEENT Problems: No - RENAL Hx Renal Failure: No - ENDOCRINE/METABOLIC Hx Diabetes Mellitus Type 1: No Hx Diabetes Mellitus Type 2: Yes Hx Hypothyroidism: No - HEMATOLOGICAL/ONCOLOGICAL Hx Blood Disorders: Yes Hx Blood Transfusions: Yes Hx Blood Transfusion Reaction: (UNK) - INTEGUMENTARY Hx Dermatological Problems: No - MUSCULOSKELETAL/RHEUMATOLOGICAL Hx Musculoskeletal Disorders: Yes Hx Falls: Yes (past) - GASTROINTESTINAL Hx Gastrointestinal Disorders: Yes Hx Gall Bladder Disease: Yes (gallstones) Other/Comment: ercp Billary stent - GENITOURINARY/GYNECOLOGICAL Hx Genitourinary Disorders: Yes Hx Incontinence: Yes - PSYCHIATRIC Hx Psychophysiologic Disorder: No Hx Substance Use: No - SURGICAL HISTORY Hx Cholecystectomy: Yes Other/Comment: uto - ANESTHESIA Hx Anesthesia Reactions: (UNK) Hx Malignant Hyperthermia: (UNK) Meds Allergies/Adverse Reactions: Allergies Allergy/AdvReac Type Severity Reaction Status Date / Time No Known Allergies Allergy Verified 12/09/16 11:50 - Medications Medications: Current Medications Clonidine HCl (Catapres-Tts3 0.3 Mg/24 Hr) 1 patch TD Q7D@1000 [facility] Hydralazine HCl (Apresoline) 10 mg IVP Q6 PRN PRN Reason: SBP>180 or DBP>120 Last Admin: 04/14/17 06:18 Dose: 10 mg Sodium Chloride (Sodium Chloride 0.45%) 1,000 mls @ 75 mls/hr IV .[id number] [facility] Labetalol HCl (Trandate) 10 mg IV Q6 PRN PRN Reason: SBP >160 Last Admin: 04/14/17 10:13 Dose: 10 mg Pantoprazole Sodium (Protonix Inj) 40 mg IVP DAILY [facility] Last Admin: 04/14/17 10:12 Dose: 40 mg Physical Exam - Constitutional Appears: No Acute Distress - Head Exam Head Exam: ATRAUMATIC, NORMAL INSPECTION, NORMOCEPHALIC - Eye Exam Eye Exam: Normal appearance, PERRL Pupil Exam: NORMAL ACCOMODATION, PERRL - ENT Exam ENT Exam: Mucous Membranes Moist - Respiratory Exam Respiratory Exam: Clear to Auscultation Bilateral, NORMAL BREATHING PATTERN. absent: Rales, Rhonchi, Wheezes - Cardiovascular Exam Cardiovascular Exam: REGULAR RHYTHM, +S1, +S2. absent: Gallop, Rubs, Systolic Murmur - GI/Abdominal Exam GI & Abdominal Exam: Hypoactive Bowel Sounds, Soft, Tenderness (periumbilical ) . absent: Rebound, Rigid - Extremities Exam Extremities exam: Positive for: pedal edema. Negative for: calf tenderness - Neurological Exam Neurological exam: Oriented x3 Additional comments: 4/5 Strength in both L upper and lower extremity and 1/5 strength in R upper extremity and 0/5 in R lower extremity which is baseline - Psychiatric Exam Psychiatric exam: Normal Affect, Normal Mood - Skin Skin Exam: Dry, Normal Color, Warm Results - Vital Signs Recent Vital Signs: Last Vital Signs Temp 97.9 F 04/14/17 08:36 Pulse 98 H 04/14/17 13:23 Resp 20 04/14/17 13:23 BP 139/99 H 04/14/17 13:23 Pulse Ox 97 04/14/17 13:23 - Labs Result Diagrams: 04/14/17 11:00 04/14/17 11:00 Labs: Laboratory Results - last 24 hr 04/13/17 04/13/17 04/14/17 16:19 21:53 07:32 WBC RBC Hgb Hct MCV MCH MCHC RDW Plt Count MPV Gran % Lymph % (Auto) [place] % (Auto) Eos % (Auto) Baso % (Auto) Gran # Lymph # [place] # Eos # Baso # pO2 VBG pH VBG pCO2 VBG HCO3 VBG Total CO2 VBG O2 Sat (Calc) VBG Base Excess VBG Potassium Sodium Chloride Glucose Lactate FiO2 Potassium Carbon Dioxide Anion Gap BUN Creatinine Est GFR ( Amer) Est GFR (Non-Af Amer) POC Glucose (mg/dL) 116 H 127 H 165 H Random Glucose Calcium Phosphorus Magnesium Total Bilirubin AST ALT Alkaline Phosphatase Total Protein Albumin Globulin Albumin/Globulin Ratio Lipase Venous Blood Potassium 04/14/17 04/14/17 04/14/17 09:22 11:00 11:00 WBC 8.9 D RBC 4.17 Hgb 14.1 Hct 41.6 L MCV 99.8 MCH 33.8 MCHC 33.9 RDW 12.7 Plt Count 248 MPV 10.0 Gran % 83.3 H Lymph % (Auto) 8.8 L [place] % (Auto) 7.5 H Eos % (Auto) 0.2 L Baso % (Auto) 0.2 Gran # 7.37 H Lymph # 0.8 L [place] # 0.7 H Eos # 0.0 Baso # 0.02 pO2 VBG pH VBG pCO2 VBG HCO3 VBG Total CO2 VBG O2 Sat (Calc) VBG Base Excess VBG Potassium Sodium 141 Chloride 103 Glucose Lactate FiO2 Potassium 3.8 Carbon Dioxide 29 Anion Gap 13 BUN 15 Creatinine 1.3 Est GFR ( Amer) > 60 Est GFR (Non-Af Amer) 56 POC Glucose (mg/dL) 156 H Random Glucose 160 H Calcium 9.3 Phosphorus 2.7 Magnesium 2.0 Total Bilirubin 0.8 AST 24 ALT 21 Alkaline Phosphatase 63 Total Protein 7.1 Albumin 3.6 Globulin 3.6 Albumin/Globulin Ratio 1.0 L Lipase 166 Venous Blood Potassium 04/14/17 11:00 WBC RBC Hgb Hct MCV MCH MCHC RDW Plt Count MPV Gran % Lymph % (Auto) [place] % (Auto) Eos % (Auto) Baso % (Auto) Gran # Lymph # [place] # Eos # Baso # pO2 72 H VBG pH 7.42 VBG pCO2 44.0 VBG HCO3 28.5 H VBG Total CO2 29.9 H VBG O2 Sat (Calc) 96.0 H VBG Base Excess 3.4 H VBG Potassium 3.7 Sodium 138.0 Chloride 105.0 Glucose 167 H Lactate 1.3 FiO2 21.0 Potassium Carbon Dioxide Anion Gap BUN Creatinine Est GFR ( Amer) Est GFR (Non-Af Amer) POC Glucose (mg/dL) Random Glucose Calcium Phosphorus Magnesium Total Bilirubin AST ALT Alkaline Phosphatase Total Protein Albumin Globulin Albumin/Globulin Ratio Lipase Venous Blood Potassium 3.7 Assessment & Plan - Assessment and Plan (Free Text) Assessment: This is a 62Y M with PMH HTN, DM, GERD, CVA with R residual weakness and aphasia , DVT on Coumadin, and pseudobulbar affect who was admitted for R basal ganglia hemorrhage. Anticoagulants were held and ss per neurosurgery, there was no surgical intervention indicated. Neurology was re-consulted for episode of AMS. CT head showed stable R basal ganglia bleed. Abdominal XR showed possible ileus , but patient did have a BM this am. Blood pressures over the past 2 days were reviewed and found to be elevated. AMS can be secondary to fluctuation in blood pressure. Plan: - Maintain SBP 120-130s - Avoid sudden increasing/decreasing in BP - Recommend CT abd/pelvis for possible SBO - Hold anticoagulants (Coumadin and ASA) for 3 weeks - Continue physical therapy Thank you for this consultation. Will sign off. Please re-consult if needed. Case seen, discussed and reviewed with attending, Dr. Tilley. Faizan Back PGY2 - Date & Time Date: 04/14/17 Time: 14:42 <Rasta Tilley - Last Filed: 04/15/17 10:47> Meds - Medications Medications: Current Medications Clonidine HCl (Catapres-Tts3 0.3 Mg/24 Hr) 1 patch TD Q7D@1000 [facility] Last Admin: 04/14/17 17:08 Dose: 1 patch Hydralazine HCl (Apresoline) 10 mg IVP Q6 PRN PRN Reason: SBP>180 or DBP>120 Last Admin: 04/14/17 06:18 Dose: 10 mg Sodium Chloride (Sodium Chloride 0.45%) 1,000 mls @ 75 mls/hr IV .[id number] [facility] Last Admin: 04/15/17 03:57 Dose: 75 mls/hr Labetalol HCl (Trandate) 10 mg IV Q6 PRN PRN Reason: SBP >160 Last Admin: 04/14/17 10:13 Dose: 10 mg Metoclopramide HCl (Reglan) 10 mg IVP Q8 [facility] Last Admin: 04/15/17 05:46 Dose: 10 mg Pantoprazole Sodium (Protonix Inj) 40 mg IVP DAILY [facility] Last Admin: 04/15/17 10:02 Dose: 40 mg Senna/Docusate Sodium (Senokot S 50 Mg-8.6 Mg) 2 tab PO HS [facility] Last Admin: 04/14/17 22:30 Dose: Not Given Results - Vital Signs Recent Vital Signs: Last Vital Signs Temp 97.6 F 04/15/17 08:27 Pulse 77 04/15/17 08:27 Resp 20 04/15/17 08:27 BP 135/84 04/15/17 08:27 Pulse Ox 96 04/15/17 08:27 - Labs Result Diagrams: 04/15/17 06:41 04/15/17 06:41 Labs: Laboratory Results - last 24 hr 04/14/17 04/14/17 04/14/17 11:00 11:00 11:00 WBC 8.9 D RBC 4.17 Hgb 14.1 Hct 41.6 L MCV 99.8 MCH 33.8 MCHC 33.9 RDW 12.7 Plt Count 248 MPV 10.0 Gran % 83.3 H Lymph % (Auto) 8.8 L [place] % (Auto) 7.5 H Eos % (Auto) 0.2 L Baso % (Auto) 0.2 Gran # 7.37 H Lymph # 0.8 L [place] # 0.7 H Eos # 0.0 Baso # 0.02 pO2 72 H VBG pH 7.42 VBG pCO2 44.0 VBG HCO3 28.5 H VBG Total CO2 29.9 H VBG O2 Sat (Calc) 96.0 H VBG Base Excess 3.4 H VBG Potassium 3.7 Sodium 141 138.0 Chloride 103 105.0 Glucose 167 H Lactate 1.3 FiO2 21.0 Potassium 3.8 Carbon Dioxide 29 Anion Gap 13 BUN 15 Creatinine 1.3 Est GFR ( Amer) > 60 Est GFR (Non-Af Amer) 56 POC Glucose (mg/dL) Random Glucose 160 H Calcium 9.3 Phosphorus 2.7 Magnesium 2.0 Total Bilirubin 0.8 AST 24 ALT 21 Alkaline Phosphatase 63 Total Protein 7.1 Albumin 3.6 Globulin 3.6 Albumin/Globulin Ratio 1.0 L Lipase 166 Venous Blood Potassium 3.7 04/14/17 04/14/17 04/14/17 11:59 16:41 21:12 WBC RBC Hgb Hct MCV MCH MCHC RDW Plt Count MPV Gran % Lymph % (Auto) [place] % (Auto) Eos % (Auto) Baso % (Auto) Gran # Lymph # [place] # Eos # Baso # pO2 VBG pH VBG pCO2 VBG HCO3 VBG Total CO2 VBG O2 Sat (Calc) VBG Base Excess VBG Potassium Sodium Chloride Glucose Lactate FiO2 Potassium Carbon Dioxide Anion Gap BUN Creatinine Est GFR ( Amer) Est GFR (Non-Af Amer) POC Glucose (mg/dL) 141 H 122 H 104 Random Glucose Calcium Phosphorus Magnesium Total Bilirubin AST ALT Alkaline Phosphatase Total Protein Albumin Globulin Albumin/Globulin Ratio Lipase Venous Blood Potassium 04/15/17 04/15/17 04/15/17 06:41 06:41 07:26 WBC 5.9 D RBC 3.71 Hgb 12.1 L D Hct 37.8 L MCV 101.9 MCH 32.6 MCHC 32.0 RDW 13.2 Plt Count 234 MPV 10.0 Gran % 67.5 Lymph % (Auto) 21.5 L [place] % (Auto) 9.1 H Eos % (Auto) 1.7 Baso % (Auto) 0.2 Gran # 4.01 Lymph # 1.3 [place] # 0.5 Eos # 0.1 Baso # 0.01 pO2 VBG pH VBG pCO2 VBG HCO3 VBG Total CO2 VBG O2 Sat (Calc) VBG Base Excess VBG Potassium Sodium 140 Chloride 105 Glucose Lactate FiO2 Potassium 3.7 Carbon Dioxide 31 Anion Gap 8 L BUN 19 Creatinine 1.4 Est GFR ( Amer) > 60 Est GFR (Non-Af Amer) 52 POC Glucose (mg/dL) 90 Random Glucose 99 Calcium 8.6 Phosphorus Magnesium 2.0 Total Bilirubin AST ALT Alkaline Phosphatase Total Protein Albumin Globulin Albumin/Globulin Ratio Lipase Venous Blood Potassium Attending/Attestation - Attestation I have personally seen and examined this patient.: Yes I have fully participated in the care of the patient.: Yes I have reviewed all pertinent clinical information: Yes
--- NOTE | 2017-04-14 15:15 | CP.PCM.CON ---
History of Present Illness - History of Present Illness History of Present Illness: SURGERY CONSULT FOR DR. KIDD CC: possible SBO HPI: 62 yo M with PMH of CVA w/ rt hemiplegia, HTN and DM presents with 1 day history of vomiting and abdominal pain. Patient presented to ER on 04/10 and was diagnosed with right basal ganglia hemorrhagic stroke. He is experiencing expressive aphasia and is unable to give history so information was taken from staff and family. This morning patient was found covered in vomit. He vomited 2 more times today and has minor midline abdominal pain. He had one well-formed BM today. Pain is now resolved. Denies fevers, chills. PMH: CVA, HTN, DM PSH: cholecystectomy Allergies: NKDA Social: denies tobacco, alcohol, drug use Review of Systems - Gastrointestinal Gastrointestinal: Abdominal Pain, Hematemesis, Vomiting. absent: Diarrhea, Loose Stools Past Patient History - Infectious Disease Hx of Infectious Diseases: None - Past Medical History & Family History Past Medical History?: Yes Past Family History: Reviewed and not pertinent - Past Social History Smoking Status: Never Smoked Alcohol: None Drugs: Denies - CARDIAC Hx Cardiac Disorders: Yes (dvt) Hx Congestive Heart Failure: No Hx Hypertension: Yes - PULMONARY Hx Chronic Obstructive Pulmonary Disease (COPD): No - NEUROLOGICAL HX Cerebrovascular Accident: Yes (approx ly 6 yrs ago) - HEENT Hx HEENT Problems: No - RENAL Hx Renal Failure: No - ENDOCRINE/METABOLIC Hx Diabetes Mellitus Type 1: No Hx Diabetes Mellitus Type 2: Yes Hx Hypothyroidism: No - HEMATOLOGICAL/ONCOLOGICAL Hx Blood Disorders: Yes Hx Blood Transfusions: Yes Hx Blood Transfusion Reaction: (UNK) - INTEGUMENTARY Hx Dermatological Problems: No - MUSCULOSKELETAL/RHEUMATOLOGICAL Hx Musculoskeletal Disorders: Yes Hx Falls: Yes (past) - GASTROINTESTINAL Hx Gastrointestinal Disorders: Yes Hx Gall Bladder Disease: Yes (gallstones) Other/Comment: ercp [place] stent - GENITOURINARY/GYNECOLOGICAL Hx Genitourinary Disorders: Yes Hx Incontinence: Yes - PSYCHIATRIC Hx Psychophysiologic Disorder: No Hx Substance Use: No - SURGICAL HISTORY Hx Cholecystectomy: Yes Other/Comment: uto - ANESTHESIA Hx Anesthesia Reactions: (UNK) Hx Malignant Hyperthermia: (UNK) Meds Allergies/Adverse Reactions: Allergies Allergy/AdvReac Type Severity Reaction Status Date / Time No Known Allergies Allergy Verified 12/09/16 11:50 - Medications Medications: Current Medications Clonidine HCl (Catapres-Tts3 0.3 Mg/24 Hr) 1 patch TD Q7D@1000 [facility] Hydralazine HCl (Apresoline) 10 mg IVP Q6 PRN PRN Reason: SBP>180 or DBP>120 Last Admin: 04/14/17 06:18 Dose: 10 mg Sodium Chloride (Sodium Chloride 0.45%) 1,000 mls @ 75 mls/hr IV .[id number] [facility] Labetalol HCl (Trandate) 10 mg IV Q6 PRN PRN Reason: SBP >160 Last Admin: 04/14/17 10:13 Dose: 10 mg Pantoprazole Sodium (Protonix Inj) 40 mg IVP DAILY [facility] Last Admin: 04/14/17 10:12 Dose: 40 mg Physical Exam - Constitutional Appears: Well, No Acute Distress - Head Exam Head Exam: ATRAUMATIC, NORMAL INSPECTION, NORMOCEPHALIC - ENT Exam ENT Exam: Mucous Membranes Moist, Normal Exam - Neck Exam Neck exam: Positive for: Normal Inspection - Respiratory Exam Respiratory Exam: Clear to Auscultation Bilateral, NORMAL BREATHING PATTERN - Cardiovascular Exam Cardiovascular Exam: Tachycardia, REGULAR RHYTHM - GI/Abdominal Exam GI & Abdominal Exam: Distended, Soft, Tenderness (mild midline). absent: Guarding, Hernia, Mass, Rebound, Rigid - Rectal Exam Rectal Exam: Fecal Impaction Additional comments: full with stool - Neurological Exam Neurological exam: Alert, Motor Sensory Deficit, Oriented x3 - Psychiatric Exam Psychiatric exam: Normal Affect, Normal Mood - Skin Skin Exam: Dry, Intact, Normal Color, Warm Results - Vital Signs Recent Vital Signs: Last Vital Signs Temp 97.9 F 04/14/17 08:36 Pulse 98 H 04/14/17 13:23 Resp 20 04/14/17 13:23 BP 139/99 H 04/14/17 13:23 Pulse Ox 97 04/14/17 13:23 - Labs Result Diagrams: 04/14/17 11:00 04/14/17 11:00 Labs: Laboratory Results - last 24 hr 04/13/17 04/13/17 04/14/17 16:19 21:53 07:32 WBC RBC Hgb Hct MCV MCH MCHC RDW Plt Count MPV Gran % Lymph % (Auto) [place] % (Auto) Eos % (Auto) Baso % (Auto) Gran # Lymph # [place] # Eos # Baso # pO2 VBG pH VBG pCO2 VBG HCO3 VBG Total CO2 VBG O2 Sat (Calc) VBG Base Excess VBG Potassium Sodium Chloride Glucose Lactate FiO2 Potassium Carbon Dioxide Anion Gap BUN Creatinine Est GFR ( Amer) Est GFR (Non-Af Amer) POC Glucose (mg/dL) 116 H 127 H 165 H Random Glucose Calcium Phosphorus Magnesium Total Bilirubin AST ALT Alkaline Phosphatase Total Protein Albumin Globulin Albumin/Globulin Ratio Lipase Venous Blood Potassium 04/14/17 04/14/17 04/14/17 09:22 11:00 11:00 WBC 8.9 D RBC 4.17 Hgb 14.1 Hct 41.6 L MCV 99.8 MCH 33.8 MCHC 33.9 RDW 12.7 Plt Count 248 MPV 10.0 Gran % 83.3 H Lymph % (Auto) 8.8 L [place] % (Auto) 7.5 H Eos % (Auto) 0.2 L Baso % (Auto) 0.2 Gran # 7.37 H Lymph # 0.8 L [place] # 0.7 H Eos # 0.0 Baso # 0.02 pO2 VBG pH VBG pCO2 VBG HCO3 VBG Total CO2 VBG O2 Sat (Calc) VBG Base Excess VBG Potassium Sodium 141 Chloride 103 Glucose Lactate FiO2 Potassium 3.8 Carbon Dioxide 29 Anion Gap 13 BUN 15 Creatinine 1.3 Est GFR ( Amer) > 60 Est GFR (Non-Af Amer) 56 POC Glucose (mg/dL) 156 H Random Glucose 160 H Calcium 9.3 Phosphorus 2.7 Magnesium 2.0 Total Bilirubin 0.8 AST 24 ALT 21 Alkaline Phosphatase 63 Total Protein 7.1 Albumin 3.6 Globulin 3.6 Albumin/Globulin Ratio 1.0 L Lipase 166 Venous Blood Potassium 04/14/17 04/14/17 11:00 11:59 WBC RBC Hgb Hct MCV MCH MCHC RDW Plt Count MPV Gran % Lymph % (Auto) [place] % (Auto) Eos % (Auto) Baso % (Auto) Gran # Lymph # [place] # Eos # Baso # pO2 72 H VBG pH 7.42 VBG pCO2 44.0 VBG HCO3 28.5 H VBG Total CO2 29.9 H VBG O2 Sat (Calc) 96.0 H VBG Base Excess 3.4 H VBG Potassium 3.7 Sodium 138.0 Chloride 105.0 Glucose 167 H Lactate 1.3 FiO2 21.0 Potassium Carbon Dioxide Anion Gap BUN Creatinine Est GFR ( Amer) Est GFR (Non-Af Amer) POC Glucose (mg/dL) 141 H Random Glucose Calcium Phosphorus Magnesium Total Bilirubin AST ALT Alkaline Phosphatase Total Protein Albumin Globulin Albumin/Globulin Ratio Lipase Venous Blood Potassium 3.7 Assessment & Plan - Assessment and Plan (Free Text) Assessment: 62M [address] constipation [address]: fecal impaction, no obstruction Plan: - Patient was disimpacted bedside - continue tap water enemas - continue to monitor for bowel movements - Further recs discuss with Dr. Jere Fontana, PGY2
--- NOTE | 2017-04-14 17:24 | CT ---
PROCEDURE: CT Abdomen and Pelvis without intravenous contrast HISTORY: eval obstruction COMPARISON: 03/06/2017 CT abdomen and pelvis Summary of findings on the comparison examination: Pneumobilia, fecal impaction. April 14, 2017. Abdominal series TECHNIQUE: Unenhanced study. Neither oral nor intravenous contrast administered. Sensitivity and specificity for acute inflammatory processes limited by the absence of oral and intravenous contrast. . Radiation dose: Total exam DLP = 1606.07 mGy-cm. This CT exam was performed using one or more of the following dose reduction techniques: Automated exposure control, adjustment of the mA and/or kV according to patient size, and/or use of iterative reconstruction technique. FINDINGS: LOWER THORAX: Unremarkable. LIVER: Unremarkable. No gross lesion or ductal dilatation. GALLBLADDER AND BILE DUCTS: Status post cholecystectomy. No abnormality is seen in the gallbladder fossa. PANCREAS: Unremarkable. No gross lesion or ductal dilatation. SPLEEN: Unremarkable. ADRENALS: Unremarkable. No mass. KIDNEYS AND URETERS: Unremarkable. No hydronephrosis. No solid mass. VASCULATURE: Unremarkable. No aortic aneurysm. Stable position of IVC filter BOWEL: Fecal impaction without obstruction. Similar findings identified previously APPENDIX: Unremarkable. Normal appendix. PERITONEUM: Unremarkable. No free fluid. No free air. LYMPH NODES: Unremarkable. No enlarged lymph nodes. BLADDER: Unremarkable. REPRODUCTIVE: Unremarkable. BONES: No acute fracture. Multilevel degenerative change, canal stenosis at L4-5. Heterotopic bone formation both hips right greater than left OTHER FINDINGS: None. IMPRESSION: No acute findings related to/accounting for the clinical presentation. Additional benign and/or incidental findings described above. No significant interval change compared to prior CT scan 03/06/2017
--- NOTE | 2017-04-14 17:35 | PN ---
DATE: 04/14/2017 LOCATION: The patient is in room 377, bed 1. REASON FOR CONSULTATION: Hypertension, acute CVA, and cardiac evaluation. SUBJECTIVE: The patient lying in bed without any respiratory distress. The patient is aphasic from previous CVA and also has right-sided hemiplegia. PHYSICAL EXAMINATION: VITAL SIGNS: Blood pressure 159/112, respirations 20, pulse 120, and temperature 97.5. HEENT: Head is normocephalic. Eyes, pupils normal. Conjunctivae normal. NECK: JVP low, carotid equal. THORAX: AP diameter normal. LUNGS: Clear. CARDIOVASCULAR: S1 and S2. ABDOMEN: Soft and nontender. No organomegaly. Bowel sounds normal. EXTREMITIES: No clubbing, no cyanosis. LABORATORY DATA: WBC 8.9, hemoglobin 14.1, hematocrit 41.6, and platelet 248. Sodium 141, potassium 3.8, BUN 15, creatinine 1.3, and random glucose 150. Calcium, phosphorous, magnesium, AST, ALT, total protein, and albumin normal. DIAGNOSES: Old cerebrovascular accident in 2008 leading to right-sided hemiplegia and aphasia. On this admission, the patient was brought in as unresponsive, found to have again cerebrovascular accident with intracerebellar bleeding, hypertension, and obesity. Echocardiogram done on 04/11/2017 showed left ventricular ejection fraction 55% to 60%, trace aortic regurgitation, trace mitral regurgitation, trace tricuspid regurgitation. PLAN: If the patient's blood pressure is still elevated, we will change TTS patch to 0.3 and we will change IV fluid from D5 normal saline to D5 half normal saline, labetalol 10 mg IV q.6 hours p.r.n. and hydralazine 10 mg IV q. 6 hours p.r.n. We will continue present therapy. We will follow. Ezio Armando MD
[2017-04-14] MEDS ORDERED: Docusate-Senna 50 mg-8.6 mg Tab PO SCH (22:00)
[2017-04-15] MEDS: Sodium Chloride 0.45% 1,000 ML IV SCH (03:57)
[2017-04-15 06:56] LABS: BASO # 0.01 K/mm3 (0.0-2.0); BASO % 0.2 % (0.0-3.0); EOS # 0.1 (0.0-0.7); EOS % 1.7 % (1.5-5.0); GRAN # 4.01 (1.4-6.5); GRAN % 67.5 % (50.0-68.0); HEMATOCRIT 37.8 % (42.0-52.0); LYMPH # 1.3 (1.2-3.4); LYMPH % 21.5 % (22.0-35.0); MEAN CELL VOLUME 101.9 fl (80.0-105.0); MEAN CORPUSCULAR HEMOGLOBIN 32.6 pg (25.0-35.0); MONO # 0.5 (0.1-0.6); MONO % 9.1 % (1.0-6.0); RED CELL DISTRIBUTION WIDTH 13.2 % (11.5-14.5); WHITE BLOOD COUNT 5.9 10^3/ul (4.5-11.0)
[2017-04-15 07:36] LABS: BLOOD UREA NITROGEN 19 mg/dL (7-21); CALCIUM 8.6 mg/dL (8.4-10.5); CARBON DIOXIDE 31 mmol/L (21-33); CHLORIDE 105 mmol/L (98-107); GFR AFRICAN-AMERICAN > 60; GLUCOSE,RANDOM 99 mg/dL (70-110); POTASSIUM 3.7 mmol/L (3.6-5.0); SODIUM 140 mmol/L (132-148)
[2017-04-15 08:28] VITALS: RESP 20
--- NOTE | 2017-04-15 08:43 | CP.PCM.PN ---
Subjective - Date & Time of Evaluation Date of Evaluation: 04/15/17 Time of Evaluation: 08:41 - Subjective Subjective: Surgery progress note for Dr. Oquendo Patient seen and examined at bedside. Patient resting comfortably in bed. Patient has expressive aphasia and is unable to give history. Patient has not had BM since yesterday when disimpacted. ROS unattainable at this time. Objective - Vital Signs/Intake and Output Vital Signs (last 24 hours): Temp Pulse Resp BP Pulse Ox 97.6 F 77 20 135/84 96 04/15/17 08:27 04/15/17 08:27 04/15/17 08:27 04/15/17 08:27 04/15/17 08:27 Intake and Output: 04/15/17 04/15/17 06:59 18:59 Intake Total 900 240 Balance 900 240 - Medications Medications: Current Medications Clonidine HCl (Catapres-Tts3 0.3 Mg/24 Hr) 1 patch TD Q7D@1000 [facility] Last Admin: 04/14/17 17:08 Dose: 1 patch Hydralazine HCl (Apresoline) 10 mg IVP Q6 PRN PRN Reason: SBP>180 or DBP>120 Last Admin: 04/14/17 06:18 Dose: 10 mg Sodium Chloride (Sodium Chloride 0.45%) 1,000 mls @ 75 mls/hr IV .[id number] [facility] Last Admin: 04/15/17 03:57 Dose: 75 mls/hr Labetalol HCl (Trandate) 10 mg IV Q6 PRN PRN Reason: SBP >160 Last Admin: 04/14/17 10:13 Dose: 10 mg Metoclopramide HCl (Reglan) 10 mg IVP Q8 [facility] Last Admin: 04/15/17 05:46 Dose: 10 mg Pantoprazole Sodium (Protonix Inj) 40 mg IVP DAILY [facility] Last Admin: 04/14/17 10:12 Dose: 40 mg Senna/Docusate Sodium (Senokot S 50 Mg-8.6 Mg) 2 tab PO HS [facility] Last Admin: 04/14/17 22:30 Dose: Not Given - Labs Labs: 04/15/17 06:41 04/15/17 06:41 PT 11.8 Seconds (9.9-11.8) 04/11/17 08:00 INR 1.09 (0.93-1.08) H 04/11/17 08:00 APTT 40.0 Seconds (23.7-30.8) H 04/10/17 05:00 - Constitutional Appears: Non-toxic, No Acute Distress - Head Exam Head Exam: NORMAL INSPECTION - Respiratory Exam Respiratory Exam: NORMAL BREATHING PATTERN. absent: Accessory Muscle Use, Respiratory Distress - Cardiovascular Exam Cardiovascular Exam: REGULAR RHYTHM. absent: Bradycardia, Tachycardia - GI/Abdominal Exam GI & Abdominal Exam: Distended, Soft. absent: Tenderness - Extremities Exam Extremities Exam: Pedal Edema. absent: Calf Tenderness - Neurological Exam Neurological Exam: Alert, Awake Additional comments: expressive aphasia - Psychiatric Exam Psychiatric exam: Normal Affect, Normal Mood - Skin Skin Exam: Dry, Intact, Normal Color, Warm Assessment and Plan - Assessment and Plan (Free Text) Assessment: 62M with constipation secondary to fecal impaction, s/p bedside disimpaction 06/19 Plan: - phosphate enema today - continue to monitor for bowel movements - Further recs will be discussed with Dr. Jere Boss, PGY1
--- NOTE | 2017-04-15 15:19 | PN ---
DATE: 04/15/2017 LOCATION: The patient in room 377, bed 1. REASON FOR CONSULTATION: Followup with hypertension, cerebrovascular accident, and cardiac evaluation. SUBJECTIVE: The patient is conscious, alert and lying flat in bed, without any respiratory distress. The patient has right-sided hemiplegia. PHYSICAL EXAMINATION: VITAL SIGNS: Blood pressure of 135/84, respirations of 20, pulse of 77, and temperature of 97.6. HEENT: Head is normocephalic. Eyes; pupils are normal. Conjunctivae are normal. Nose and throat are normal. NECK: JVP is low. Carotid is equal. THORAX: AP diameter normal. LUNGS: Clear. CARDIOVASCULAR: S1 and S2. ABDOMEN: Soft, and nontender. No organomegaly. Bowel sound is normal. EXTREMITIES: No clubbing. No cyanosis. LABORATORY DATA: WBC of 5.9, hemoglobin of 12.1, hematocrit of 37.8, and platelets of 234. Sodium of 140, potassium of 3.7, BUN of 19, and creatinine of 1.4. Random sugar of 90. Calcium is 8.6. Magnesium is 2.0. DIAGNOSES: Old cerebrovascular accident in 2008 leading to right-sided hemiplegia and aphasia. On this admission, the patient was brought in as unresponsive and found to have again cerebrovascular accident with cerebral bleeding, hypertension, and obesity. PLAN: Yesterday, I changed the TTS patch to 0.3 mg and changed his IV fluids blood pressure seemed to be better. We will continue IV fluid as ordered, D5 and half normal saline 75 mL an hour, and Clonidine 0.3 mg patch 24 hours every week. Echo has been already done on 04/11/2017, which showed normal ejection fraction. We will follow. Ezio Armando MD
[2017-04-15 16:05] VITALS: BP 144/99; TEMP 98.6; O2SAT 98
[2017-04-15 18:42] VITALS: PULSE 77
--- NOTE | 2017-04-15 23:38 | CP.PCM.DIS ---
Provider - Provider Date of Admission: 04/10/17 02:33 Attending physician: Kristine Germain MD Primary care physician: Leroy Cabrera DO Time Spent in preparation of Discharge (in minutes): 25 Diagnosis - Discharge Diagnosis (1) CVA (cerebrovascular accident due to intracerebral hemorrhage) Status: Acute Hospital Course - Lab Results Lab Results: Micro Results 04/14/17 11:00 Blood-Venous Blood Culture - Preliminary NO GROWTH AFTER 24 HOURS 04/14/17 10:00 Blood-Venous Blood Culture - Preliminary NO GROWTH AFTER 24 HOURS Most Recent Lab Values WBC 5.9 10^3/ul (4.5-11.0) D 04/15/17 06:41 RBC 3.71 10^6/uL (3.5-6.1) 04/15/17 06:41 Hgb 12.1 g/dL (14.0-18.0) L D 04/15/17 06:41 Hct 37.8 % (42.0-52.0) L 04/15/17 06:41 MCV 101.9 fl (80.0-105.0) 04/15/17 06:41 MCH 32.6 pg (25.0-35.0) 04/15/17 06:41 MCHC 32.0 g/dl (31.0-37.0) 04/15/17 06:41 RDW 13.2 % (11.5-14.5) 04/15/17 06:41 Plt Count 234 10^3/uL (120.0-450.0) 04/15/17 06:41 MPV 10.0 fl (7.0-11.0) 04/15/17 06:41 Gran % 67.5 % (50.0-68.0) 04/15/17 06:41 Lymph % (Auto) 21.5 % (22.0-35.0) L 04/15/17 06:41 [place] % (Auto) 9.1 % (1.0-6.0) H 04/15/17 06:41 Eos % (Auto) 1.7 % (1.5-5.0) 04/15/17 06:41 Baso % (Auto) 0.2 % (0.0-3.0) 04/15/17 06:41 Gran # 4.01 (1.4-6.5) 04/15/17 06:41 Lymph # 1.3 (1.2-3.4) 04/15/17 06:41 [place] # 0.5 (0.1-0.6) 04/15/17 06:41 Eos # 0.1 (0.0-0.7) 04/15/17 06:41 Baso # 0.01 K/mm3 (0.0-2.0) 04/15/17 06:41 PT 11.8 Seconds (9.9-11.8) 04/11/17 08:00 INR 1.09 (0.93-1.08) H 04/11/17 08:00 APTT 40.0 Seconds (23.7-30.8) H 04/10/17 05:00 pO2 72 mm/Hg (30-55) H 04/14/17 11:00 VBG pH 7.42 (7.32-7.43) 04/14/17 11:00 VBG pCO2 44.0 (40-60) 04/14/17 11:00 VBG HCO3 28.5 mmol/l (21-28) H 04/14/17 11:00 VBG Total CO2 29.9 mmol.L (22-28) H 04/14/17 11:00 VBG O2 Sat (Calc) 96.0 % (40-65) H 04/14/17 11:00 VBG Base Excess 3.4 mmol/L (0.0-2.0) H 04/14/17 11:00 VBG Potassium 3.7 mmol/L (3.6-5.2) 04/14/17 11:00 Sodium 138.0 mmol/L (132-148) 04/14/17 11:00 Chloride 105.0 mmol/L (98-107) 04/14/17 11:00 Glucose 167 mg/dl (75-110) H 04/14/17 11:00 Lactate 1.3 mmol/L (0.7-2.1) 04/14/17 11:00 FiO2 21.0 % 04/14/17 11:00 Sodium 140 mmol/L (132-148) 04/15/17 06:41 Potassium 3.7 mmol/L (3.6-5.0) 04/15/17 06:41 Chloride 105 mmol/L (98-107) 04/15/17 06:41 Carbon Dioxide 31 mmol/L (21-33) 04/15/17 06:41 Anion Gap 8 (10-20) L 04/15/17 06:41 BUN 19 mg/dL (7-21) 04/15/17 06:41 Creatinine 1.4 mg/dL (0.8-1.5) 04/15/17 06:41 Est GFR ( Amer) > 60 04/15/17 06:41 Est GFR (Non-Af Amer) 52 04/15/17 06:41 POC Glucose (mg/dL) 114 mg/dL (65-110) H 04/15/17 15:35 Random Glucose 99 mg/dL (70-110) 04/15/17 06:41 Hemoglobin A1c 5.0 % (4.2-6.5) 04/10/17 01:25 Calcium 8.6 mg/dL (8.4-10.5) 04/15/17 06:41 Phosphorus 2.7 mg/dL (2.5-4.5) 04/14/17 11:00 Magnesium 2.0 mg/dL (1.7-2.2) 04/15/17 06:41 Total Bilirubin 0.8 mg/dL (0.2-1.3) 04/14/17 11:00 AST 24 U/L (17-59) 04/14/17 11:00 ALT 21 U/L (7-56) 04/14/17 11:00 Alkaline Phosphatase 63 U/L (38-126) 04/14/17 11:00 Troponin I < 0.01 ng/mL 04/11/17 05:00 NT-Pro-B Natriuret Pep 189 pg/mL (0-450) 04/11/17 05:00 Total Protein 7.1 g/dL (5.8-8.3) 04/14/17 11:00 Albumin 3.6 g/dL (3.0-4.8) 04/14/17 11:00 Globulin 3.6 gm/dL 04/14/17 11:00 Albumin/Globulin Ratio 1.0 (1.1-1.8) L 04/14/17 11:00 Triglycerides 57 mg/dL (35-160) 04/10/17 05:00 Cholesterol 111 mg/dL (130-200) L 04/10/17 05:00 LDL Cholesterol Direct 48 mg/dL (0-129) 04/10/17 05:00 HDL Cholesterol 40 mg/dL (29-60) 04/10/17 05:00 Lipase 166 U/L (23-300) 04/14/17 11:00 TSH 3rd Generation 2.98 mIU/mL (0.46-4.68) 04/13/17 07:40 Venous Blood Potassium 3.7 mmol/L (3.6-5.2) 04/14/17 11:00 Blood Type AB POSITIVE 04/10/17 01:25 Antibody Screen Negative 04/10/17 01:25 BBK History Checked Patient has bt 04/10/17 01:25 Discharge Exam - Head Exam Head Exam: NORMAL INSPECTION Discharge Plan - Discharge Medications Prescriptions: cloNIDine 0.3 mg/24 hr [catapres-TTS3 0.3 mg/24 hr] 1 patch TD Q7D@1000 #5 patch Docusate Sodium/Sennosides A [Senokot S 50 MG-8.6 MG] 2 tab PO HS 30 Days tab - Follow Up Plan Condition: FAIR Disposition: HOME/ ROUTINE Instructions: Hemorrhagic Stroke (DC), Hypertension (DC), Stroke (DC)
--- NOTE | 2017-04-15 23:38 | CP.PCM.PN ---
Subjective - Date & Time of Evaluation Date of Evaluation: 04/14/17 Time of Evaluation: 20:45 Objective - Vital Signs/Intake and Output Vital Signs (last 24 hours): Temp Pulse Resp BP Pulse Ox 98.6 F 77 20 144/99 H 98 04/15/17 16:04 04/15/17 18:00 04/15/17 16:04 04/15/17 16:04 04/15/17 16:04 Intake and Output: 04/15/17 04/16/17 18:59 06:59 Intake Total 360 Balance 360 - Labs Labs: 04/15/17 06:41 04/15/17 06:41 PT 11.8 Seconds (9.9-11.8) 04/11/17 08:00 INR 1.09 (0.93-1.08) H 04/11/17 08:00 APTT 40.0 Seconds (23.7-30.8) H 04/10/17 05:00 Assessment and Plan (1) CVA (cerebrovascular accident due to intracerebral hemorrhage) Assessment & Plan: Aphasia Right Hemiplegia Urinary Incontinence Bedbpound Therapeutic INR Admit to ICU Coumadin held Neuor check q1h Neurosurgery and Neurology Consult Seizure Prophylaxis NPO Reposition Q2hrs (High Risk for skin Breakdown) Speech and Swallow evaluation Repeat CT head for AMS and in 24-48hrs Fasting Lipid Profile and HgA1C Status: Acute (2) H/O deep venous thrombosis Assessment and Plan: Repeat Venous Doppler, and if Negative SCD No Anticoagulation due to ICH Status: Resolved (3) Essential (primary) hypertension Assessment and Plan: Keep Blood Pressure SBP about 140-150 Status: Resolved
== END 2017-04-15 20:48 | disposition home or self-care (01) | DRG 65 ==
LOC: ED 00:25 → ERH 02:33 → CCU 04:35 → 3RSO 04-13 04:54
PROVIDERS: ADMIT Internal Medicine; ATTEND Internal Medicine
PROC: 30233K1 Transfusion of Nonautologous Frozen Plasma into Peripheral Vein, Percutaneous Approach (ICD-10-PCS; principal; 2017-04-10)
DX: I61.0 Nontraumatic intracerebral hemorrhage in hemisphere, subcortical (principal); R47.01 Aphasia; I69.351 Hemiplegia and hemiparesis following cerebral infarction affecting right dominant side; R13.10 Dysphagia, unspecified; I08.3 Combined rheumatic disorders of mitral, aortic and tricuspid valves; Z79.01 Long term (current) use of anticoagulants; I10 Essential (primary) hypertension; I48.91 Unspecified atrial fibrillation; R29.713 NIHSS score 13; F48.2 Pseudobulbar affect; K21.9 Gastro-esophageal reflux disease without esophagitis; K56.41 Fecal impaction; R32 Unspecified urinary incontinence; E11.9 Type 2 diabetes mellitus without complications; K80.20 Calculus of gallbladder without cholecystitis without obstruction; E66.9 Obesity, unspecified; Z86.718 Personal history of other venous thrombosis and embolism; Z74.01 Bed confinement status; Z68.36 Body mass index [BMI] 36.0-36.9, adult; Z79.84 Long term (current) use of oral hypoglycemic drugs

== ENCOUNTER 2017-04-17 13:12 | Emergency (ER) | payer MEDICARE, OTHER ==
[2017-04-17 13:19] VITALS: BMI 34.4
--- NOTE | 2017-04-17 14:02 | ED PDOC ---
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 Patient was evaluated by neurologist and recommended good bp control and discontinued his anticoagulant. Patient was discharged home, however since being at the hospital, patient still has trouble swallowing and is not acting consistent with baseline. Upon waking up this morning, patient's family reports he has been talking less and remains having trouble swallowing . Patient is aphasic and not speaking, but follows commands. ROS AND HPI limited due to patient being aphasic. PMD: Dr. Germain Time/Duration: Other (7 days ago) Symptom Onset: Gradual Symptom Course: Unchanged Activities at Onset: Light Context: Home Past Medical History - Provider Review Nursing Documentation Reviewed: Yes - Infectious Disease Hx of Infectious Diseases: None - Cardiac Hx Cardiac Disorders: Yes Hx Hypertension: Yes - Pulmonary Hx Pneumonia: Yes - Neurological HX Cerebrovascular Accident: Yes (R sided weakness and aphasia) - HEENT Hx HEENT Disorder: No - Renal Hx Renal Failure: No - Endocrine/Metabolic Hx Diabetes Mellitus Type 2: Yes - Hematological/Oncological Hx Blood Disorders: Yes Hx Blood Transfusions: Yes Hx Blood Transfusion Reaction: (UNK) - Integumentary Hx Dermatological Disorder: No - Musculoskeletal/Rheumatological Hx Musculoskeletal Disorders: Yes Hx Falls: Yes (past) - Gastrointestinal Hx Gastrointestinal Disorders: Yes Hx Gall Bladder Disease: Yes (gallstones) Other/Comment: ercp Billary stent - Genitourinary/Gynecological Hx Genitourinary Disorders: Yes Hx Incontinence: Yes - Psychiatric Hx Psychophysiologic Disorder: No Hx Substance Use: No - Surgical History Hx Cholecystectomy: Yes Other/Comment: uto - Anesthesia Hx Anesthesia Reactions: (UNK) Hx Malignant Hyperthermia: (UNK) Family/Social History - Physician Review Nursing Documentation Reviewed: Yes Family/Social History: No Known Family HX Smoking Status: Never Smoked Hx Alcohol Use: No Hx Substance Use: No Allergies/Home Meds Allergies/Adverse Reactions: Allergies No Known Allergies Allergy (Verified 12/09/16 11:50) Home Medications: Home Meds Medication Instructions Recorded Confirmed Esomeprazole Magnesium [Nexium] 40 mg PO DAILY 05/29/16 04/10/17 Levetiracetam 500 mg PO BID 05/29/16 04/10/17 Potassium Chloride [K-Tab ER] 1 tab PO DAILY 05/29/16 04/10/17 Review of Systems - Physician Review All systems were reviewed & negative as marked: Yes - Review of Systems Systems not reviewed;Unavailable: Other (Aphasia) Physical Exam Vital Signs Reviewed: Yes Vital Signs Temp Pulse Resp BP Pulse Ox 04/17/17 15:31 97.5 F L 04/17/17 15:14 54 L 13 139/84 100 Temperature: Afebrile Blood Pressure: Normal Pulse: Bradycardic Respiratory Rate: Normal Appearance: Positive for: Well-Appearing, Non-Toxic, Comfortable Pain Distress: None Mental Status: Positive for: other (Aphasic male, non-speaking, but following commends. Awake and Oriented) Finger Stick Blood Glucose: 112 - Systems Exam Head: Present: Atraumatic, Normocephalic Pupils: Present: PERRL Extroacular Muscles: Present: EOMI Conjunctiva: Present: Normal Mouth: Present: Moist Mucous Membranes Pharnyx: Present: Normal. No: ERYTHEMA, EXUDATE Neck: Present: Normal Range of Motion Respiratory/Chest: Present: Clear to Auscultation, Good Air Exchange. No: Respiratory Distress, Accessory Muscle Use Cardiovascular: Present: Regular Rate and Rhythm, Bradycardic. No: Murmurs, Normal S1, S2 Abdomen: Present: Normal Bowel Sounds. No: Tenderness, Distention, Peritoneal Signs Back: Present: Normal Inspection Upper Extremity: Present: Normal Inspection. No: Cyanosis, Edema Lower Extremity: Present: Normal Inspection. No: Edema Neurological: Present: GCS=15, CN II-XII Intact, Other (Neurologically dense right hemiplegia, right lower and upper extremity ). No: Speech Normal Skin: Present: Warm, Dry, Normal Color. No: Rashes Psychiatric: Present: Alert, Normal Insight, Normal Concentration Medical Decision Making ED Course and Treatment: 04/17/17 14:01 Impression: 62 year old male presents complaining of aphasia and trouble swallowing. Patient was admitted 04/14/17 with similar complaints. Plan: -- Brain CT -- Labs -- Urinalysis -- EKG -- Chest X-ray -- Reassess and disposition Prior Visits: Notes and results from previous visits were reviewed. On 04/10/17 patient came in complaining of onset aphasia and inability to swallow. Patient was admitted. Progress Notes: EKG shows Sinus Bradycardia at 53 BPM with normal intervals, normal axis, and no ST/T changes. Interpreted by me. PROCEDURE: Chest X-ray Dictator : Mane Yu MD Report Date : 04/17/2017 15:04:21 IMPRESSION: Poor inspiration with low lung volumes, crowded bronchovascular markings and mild bibasilar atelectasis PROCEDURE: CT HEAD WITHOUT CONTRAST. Dictator: Mane Yu MD Report Date : 04/17/2017 15:45:05 IMPRESSION: Re- demonstrated is a small right basal ganglia hematoma which has decreased in size and contiguity however there has been slight increase in the amount of surrounding rim of edema. Extensive and significant chronic white matter ischemic changes with multiple bilateral basal nuclei lacunar type infarcts. 04/17/17 16:05 CT results showing slight resolution of the R BG hemorrhage - labs are nondiagnostic. The patient's family requested the patient be transferred to [facility]; spoke with PMD, Dr. Germain, who has accepted the patient for transfer to his medical service at [facility]. Spoke with ER physician at [facility], Dr. Gonsalez, to inform of transfer. Family signed the transfer form. 04/17/17 16:11 Patient to be transferred by [facility] to [facility]. - Lab Interpretations Lab Results: 04/17/17 14:07 04/17/17 14:07 Lab Results 04/17/17 15:54: Urine Color Yellow, Urine Appearance Sl cloudy, Urine pH 7.0, Ur Specific [place] 1.020, Urine Protein >=300 H, Urine Glucose (UA) 100 H, Urine Ketones 15 H, Urine Blood Trace-intact H, Urine Nitrate Negative, Urine Bilirubin Negative, Urine Urobilinogen 4.0 H, Ur Leukocyte Esterase Negative, Urine RBC Pending, Urine WBC Pending 04/17/17 14:07: Sodium 143, Potassium 4.1, Chloride 105, Carbon Dioxide 30, Anion Gap 12, BUN 18, Creatinine 1.2, Est GFR ( Amer) > 60, Est GFR (Non- Af Amer) > 60, Random Glucose 101, Calcium 8.9, Magnesium 2.1, Total Bilirubin 0.9, AST 25, ALT 34, Alkaline Phosphatase 52, Lactate Dehydrogenase 478, Total Creatine Kinase 77, Troponin I < 0.01, Total Protein 6.6, Albumin 3.3, Globulin 3.4, Albumin/Globulin Ratio 1.0 L, Lipase 152 04/17/17 14:07: PT 11.0, INR 1.02, APTT 28.7 04/17/17 14:07: WBC 7.0, RBC 4.15, Hgb 14.0, Hct 41.5 L, MCV 100.0, MCH 33.7, MCHC 33.7, RDW 12.9, Plt Count 224, MPV 10.2, Gran % 67.3, Lymph % (Auto) 20.0 L , [place] % (Auto) 10.1 H, Eos % (Auto) 2.3, Baso % (Auto) 0.3, Gran # 4.68, Lymph # 1.4, [place]ha # 0.7 H, Eos # 0.2, Baso # 0.02 I have reviewed the lab results: Yes - RAD Interpretation Radiology Orders: 04/17/17 13:45 Brain [HEAD W/O CONTRAST] [CT] Stat 04/17/17 13:47 CHEST ONE VIEW [RAD] Stat - EKG Interpretation Interpreted by ED Physician: Yes Type: 12 lead EKG - Scribe Statement The provider has reviewed the documentation as recorded by the Scribe Suresh Guevara All medical record entries made by the Zachibyvonne were at my direction and personally dictated by me. I have reviewed the chart and agree that the record accurately reflects my personal performance of the history, physical exam, medical decision making, and the department course for this patient. I have also personally directed, reviewed, and agree with the discharge instructions and disposition. Disposition/Present on Arrival - Present on Arrival Any Indicators Present on Arrival: Yes History of DVT/PE: Yes History of Uncontrolled Diabetes: Yes Urinary Catheter: No History of Decub. Ulcer: Yes History Surgical Site Infection Following: None - Disposition Have Diagnosis and Disposition been Completed?: Yes Diagnosis: Altered mental status Disposition: Transfer [facility] Disposition Time: 15:50 Patient Plan: Transfer To ([facility]) Patient Problems: Current Active Problems Problem Status Onset Altered mental status Acute Condition: STABLE Referrals: PCP,NO [Primary Care Provider] - Follow up with primary Forms: [employer] ([place])
[2017-04-17 14:11] LABS: BASO # 0.02 K/mm3 (0.0-2.0); BASO % 0.3 % (0.0-3.0); EOS # 0.2 (0.0-0.7); EOS % 2.3 % (1.5-5.0); GRAN # 4.68 (1.4-6.5); GRAN % 67.3 % (50.0-68.0); HEMATOCRIT 41.5 % (42.0-52.0); LYMPH # 1.4 (1.2-3.4); MEAN CORPUSCULAR HEMOGLOBIN 33.7 pg (25.0-35.0); MEAN CORPUSCULAR HGB CONC 33.7 g/dl (31.0-37.0); MEAN PLATELET VOLUME 10.2 fl (7.0-11.0); MONO # 0.7 (0.1-0.6); MONO % 10.1 % (1.0-6.0); RED CELL DISTRIBUTION WIDTH 12.9 % (11.5-14.5)
[2017-04-17 14:21] LABS: INR 1.02 (0.93-1.08); PARTIAL THROMBOPLASTIN TIME 28.7 Seconds (23.7-30.8)
[2017-04-17 14:24] LABS: ALKALINE PHOSPHATASE 52 U/L (38-126); ALT/SGPT 34 U/L (7-56); AST/SGOT 25 U/L (17-59); BILIRUBIN,TOTAL 0.9 mg/dL (0.2-1.3); BLOOD UREA NITROGEN 18 mg/dL (7-21); CALCIUM 8.9 mg/dL (8.4-10.5); CARBON DIOXIDE 30 mmol/L (21-33); CHLORIDE 105 mmol/L (98-107); GFR AFRICAN-AMERICAN > 60; GLUCOSE,RANDOM 101 mg/dL (70-110); LIPASE 152 U/L (23-300); MAGNESIUM 2.1 mg/dL (1.7-2.2); POTASSIUM 4.1 mmol/L (3.6-5.0); SODIUM 143 mmol/L (132-148); TOTAL PROTEIN 6.6 g/dL (5.8-8.3)
[2017-04-17 14:36] LABS: TROPONIN I < 0.01 ng/mL
--- NOTE | 2017-04-17 15:06 | RAD ---
PROCEDURE: CHEST RADIOGRAPH, 1 VIEW HISTORY: alt ms COMPARISON: Comparison made with prior study 04/14/2017 FINDINGS: LUNGS: Poor inspiration with low lung volumes, crowded bronchovascular markings and mild bibasilar atelectasis. PLEURA: No pneumothorax or pleural fluid seen. CARDIOVASCULAR: Cardiomegaly. OSSEOUS STRUCTURES: No significant abnormalities. VISUALIZED UPPER ABDOMEN: Normal. OTHER FINDINGS: None. IMPRESSION: Poor inspiration with low lung volumes, crowded bronchovascular markings and mild bibasilar atelectasis.
--- NOTE | 2017-04-17 15:46 | CT ---
PROCEDURE: CT HEAD WITHOUT CONTRAST. HISTORY: alt ms; s/p BG bleed; h/o CVA with aphasia/R weak COMPARISON: Comparison made with CT scan of the brain dated 04/14/2017 TECHNIQUE: Axial computed tomography images were obtained through the head/brain without intravenous contrast. Radiation dose: Total exam DLP = 871.88 mGy-cm. This CT exam was performed using one or more of the following dose reduction techniques: Automated exposure control, adjustment of the mA and/or kV according to patient size, and/or use of iterative reconstruction technique. FINDINGS: HEMORRHAGE: Re- demonstrated is a small right basal ganglia hematoma which appears slightly less dense and decreased in size however the rim of surrounding edema has increased slightly. BRAIN: Significant diffuse/ confluent chronic white matter ischemic changes again seen extending peripherally into the deep and subcortical white matter both cerebral hemispheres. There is extension of these changes into the white matter tracts of both basal nuclei. Scattered chronic bilateral basal nuclei lacunar type infarcts are also again noted. Associated ex vacuo dilatation of the left lateral ventricle unchanged. VENTRICLES: No obstructive hydrocephalus CALVARIUM: There are no acute calvarial fractures PARANASAL SINUSES: Unremarkable as visualized. No significant inflammatory changes. MASTOID AIR CELLS: Unremarkable as visualized. No inflammatory changes. OTHER FINDINGS: None. IMPRESSION: Re- demonstrated is a small right basal ganglia hematoma which has decreased in size and contiguity however there has been slight increase in the amount of surrounding rim of edema. Extensive and significant chronic white matter ischemic changes with multiple bilateral basal nuclei lacunar type infarcts.
[2017-04-17 16:30] LABS: URINE BILIRUBIN NEGATIVE (NEGATIVE); URINE BLOOD TRACE-INTACT (NEGATIVE); URINE GLUCOSE (UA) 100 mg/dL (NEGATIVE); URINE KETONE 15 mg/dL (NEGATIVE); URINE LEUKOCYTE ESTERASE NEGATIVE Leu/uL (NEGATIVE); URINE PROTEIN >=300 mg/dL (<30 mg/dL)
[2017-04-17 16:36] LABS: URINE APPEARANCE SL CLOUDY (CLEAR); URINE COLOR YELLOW (YELLOW)
[2017-04-17 16:43] VITALS: BP 141/83; PULSE 58; RESP 14; TEMP 98.1; O2SAT 98
[2017-04-17 16:44] LABS: URINE RBC 0 - 2 /hpf (0-2)
[2017-04-17 16:45] LABS: URINE AMORPHOUS SEDIMENT MODERATE; URINE BACTERIA MOD (NEG)
--- NOTE | 2017-04-18 12:23 | CARD ---
APPROVED REPORT EKG Measurement Heart [id number] IL [id number] [id number] <Conclusion> Sinus bradycardia Otherwise normal ECG
== END 2017-04-17 17:07 | disposition short-term general hospital (02) ==
LOC: ED 13:12
DX: R41.82 Altered mental status, unspecified (principal); E11.9 Type 2 diabetes mellitus without complications; I10 Essential (primary) hypertension; Z79.01 Long term (current) use of anticoagulants

== ENCOUNTER 2018-03-02 21:44 | Inpatient (IN) | payer MEDICARE, OTHER ==
--- NOTE | 2018-03-02 22:28 | ED PDOC ---
Arrival/HPI - General Time Seen by Provider: 03/02/18 22:08 Historian: Family - History of Present Illness Narrative History of Present Illness (Text): 03/02/18 22:19 63yo male with pmhx of hypertension, Diabetes, CVA, seizure, bed bound with G- tube bib EMS for dislodged G-tube. Per the son by the bedside, the sister noticed the dislodged G-tube this evening while cleaning him up. PT is a poor historian, aphasic secondary to CVA. He answers by shaking his head and denies any somatic complaint. Past Medical History - Provider Review Nursing Documentation Reviewed: Yes - Infectious Disease Hx of Infectious Diseases: None - Cardiac Hx Cardiac Disorders: Yes Hx Congestive Heart Failure: No Hx TX: No Hx Hypertension: Yes Hx Peripheral Edema: Yes (RIGHT FOOT) Hx Peripheral Vascular Disease: Yes (DVT) - Pulmonary Hx Respiratory Disorders: Yes Hx Chronic Obstructive Pulmonary Disease (COPD): No Hx Pneumonia: Yes Hx Sleep Apnea: No - Neurological Hx Neurological Disorder: Yes HX Cerebrovascular Accident: Yes (X 2 R sided weakness and aphasia) Hx Paralysis: Yes Hx Seizures: Yes (LAST ONE 3 YEARS AGO) Other/Comment: Right side Hemiplagia , Aphasia - HEENT Hx HEENT Disorder: No - Renal Hx Renal Disorder: No Hx Kidney Stones: Yes Hx Renal Failure: No - Endocrine/Metabolic Hx Endocrine Disorders: Yes Hx Diabetes Mellitus Type 1: No Hx Diabetes Mellitus Type 2: Yes Hx Hypothyroidism: No - Hematological/Oncological Hx Blood Disorders: Yes Hx Blood Transfusions: Yes Hx Blood Transfusion Reaction: (UNK) Hx Cancer: No - Integumentary Hx Dermatological Disorder: No - Musculoskeletal/Rheumatological Hx Musculoskeletal Disorders: Yes Hx Arthritis: No Hx Falls: Yes (past) Hx Fractures: No Hx Rheumatoid Arthritis: No Hx Unsteady Gait: Yes (CANNOT WALK) - Gastrointestinal Hx Gastrointestinal Disorders: Yes Hx Gall Bladder Disease: Yes (gallstones) Hx Gastroesophageal Reflux: No Other/Comment: ercp Billary stent - Genitourinary/Gynecological Hx Genitourinary Disorders: Yes Hx Incontinence: Yes Hx Reproductive Disorders: No - Psychiatric Hx Psychophysiologic Disorder: No Hx Substance Use: No - Surgical History Hx Cholecystectomy: Yes Other/Comment: TRACHEOSTOMY - Anesthesia Hx Anesthesia: Yes Hx Anesthesia Reactions: No Hx Malignant Hyperthermia: No Family/Social History - Physician Review Nursing Documentation Reviewed: Yes Family/Social History: Unknown Family HX Smoking Status: Never Smoked Hx Alcohol Use: No Hx Substance Use: No Allergies/Home Meds Allergies/Adverse Reactions: Allergies No Known Allergies Allergy (Verified 03/02/18 22:39) Home Medications: Home Meds Medication Instructions Recorded Confirmed Levetiracetam 500 mg PO BID 05/29/16 03/02/18 Apixaban [Eliquis] 2.5 mg PO BID 09/26/17 03/02/18 Folic Acid 1 mg PO DAILY 09/26/17 03/02/18 MetFORMIN ER [Glucophage XR] 500 mg PO BID 09/26/17 03/02/18 Review of Systems - Physician Review All systems were reviewed & negative as marked: Yes - Review of Systems Constitutional: Normal Eyes: Normal ENT: Normal Respiratory: Normal Cardiovascular: Normal Gastrointestinal: Other (Dislodged G-tube) Genitourinary Male: Normal Musculoskeletal: Normal Skin: Normal Neurological: Normal Endocrine: Normal Hemo/Lymphatic: Normal Psychiatric: Normal Physical Exam Vital Signs Reviewed: Yes Vital Signs Temp Pulse Resp BP Pulse Ox 03/03/18 00:51 88 22 130/90 98 03/02/18 22:41 98.4 F 160/90 H Temperature: Afebrile Blood Pressure: Normal Pulse: Regular Respiratory Rate: Normal Appearance: Positive for: Well-Appearing, Non-Toxic, Comfortable, Other ( Morbidly obese) Pain Distress: None Mental Status: Positive for: Alert and Oriented X 3 - Systems Exam Head: Present: Atraumatic, Normocephalic Pupils: Present: PERRL Extroacular Muscles: Present: EOMI Conjunctiva: Present: Normal Mouth: Present: Moist Mucous Membranes Neck: Present: Normal Range of Motion Respiratory/Chest: Present: Clear to Auscultation, Good Air Exchange. No: Respiratory Distress, Accessory Muscle Use Cardiovascular: Present: Regular Rate and Rhythm, Normal S1, S2. No: Murmurs Abdomen: No: Tenderness, Distention, Peritoneal Signs, Rebound, Guarding, McBurney's Point Tender, Rovsing's Sign Present, Feeding Tubes (Dislodged G- tube noted) Back: Present: Normal Inspection Upper Extremity: Present: Normal Inspection. No: Cyanosis, Edema Lower Extremity: Present: Normal Inspection. No: Edema Neurological: Present: GCS=15, CN II-XII Intact, Speech Normal Skin: Present: Warm, Dry, Normal Color. No: Rashes Psychiatric: Present: Alert, Oriented x 3, Normal Insight, Normal Concentration Medical Decision Making ED Course and Treatment: 03/03/18 01:41 Pt present to ED for stated history. He was not in any distress and denies any somatic complaint in ED. Case was [facility] Fellow, Dr. Deo hernandez, he states they will see patient in the morning Case was [facility] Dr. Frank and pt was admitted to they service. - Lab Interpretations Lab Results: 03/02/18 23:17 Lab Results 03/02/18 23:17: PT 13.7 H, INR 1.20, APTT 35.0 03/02/18 23:17: WBC 7.6, RBC 4.14, Hgb 13.9 L, Hct 41.6 L, MCV 100.5, MCH 33.6, MCHC 33.4, RDW 13.6, Plt Count 251, MPV 12.2 H, Gran % 67.8, Lymph % (Auto) 22.7 , [place] % (Auto) 6.3 H, Eos % (Auto) 2.8, Baso % (Auto) 0.4, Gran # 5.14, Lymph # (Auto) 1.7, [place] # (Auto) 0.5, Eos # (Auto) 0.2, Baso # (Auto) 0.03 - Medication Orders Current Medication Orders: Dextrose (Dextrose 50% Inj) 0 ml IV STAT PRN; Protocol PRN Reason: Hypoglycemia Protocol Furosemide (Lasix) 20 mg PO DAILY AMOS Sodium Chloride (Sodium Chloride 0.9%) 1,000 mls @ 100 mls/hr IV .Q10H STA Stop: 03/03/18 08:55 Last Admin: 03/02/18 23:26 Dose: 100 mls/hr eMAR Start Stop Document 03/02/18 23:26 SS (Rec: 03/02/18 23:27 SS [id number]) Intravenous Solution Start Date 03/02/18 Start Time 23:27 Dextrose (Dextrose 5% In Water 1000 Ml) 1,000 mls @ 0 mls/hr IV .Q0M PRN; Protocol; Per Protocol PRN Reason: Hypoglycemia Protocol Levetiracetam (Keppra) 500 mg PO BID AMOS Metformin HCl (Glucophage Xr) 500 mg PO BID AMOS Disposition/Present on Arrival - Present on Arrival Any Indicators Present on Arrival: No History of DVT/PE: Yes History of Uncontrolled Diabetes: Yes Urinary Catheter: No History of Decub. Ulcer: No History Surgical Site Infection Following: None - Disposition Have Diagnosis and Disposition been Completed?: Yes Diagnosis: Gastrostomy tube dysfunction Disposition: HOSPITALIZED Disposition Time: 23:25 Patient Plan: Admission Patient Problems: Current Active Problems Problem Status Onset Gastrostomy tube dysfunction Acute Condition: STABLE
[2018-03-02 22:50] VITALS: BMI 35.9
[2018-03-02] MEDS ORDERED: Sodium Chloride 0.9% 1,000 ML IV STA (22:56)
[2018-03-02 23:34] LABS: BASO # 0.03 K/mm3 (0.0-2.0); BASO % 0.4 % (0.0-3.0); EOS # 0.2 (0.0-0.7); EOS % 2.8 % (1.5-5.0); GRAN # 5.14 (1.4-6.5); GRAN % 67.8 % (50.0-68.0); HEMOGLOBIN 13.9 g/dL (14.0-18.0); LYMPH # 1.7 (1.2-3.4); LYMPH % 22.7 % (22.0-35.0); MEAN CELL VOLUME 100.5 fl (80.0-105.0); MEAN CORPUSCULAR HEMOGLOBIN 33.6 pg (25.0-35.0); MEAN CORPUSCULAR HGB CONC 33.4 g/dl (31.0-37.0); MEAN PLATELET VOLUME 12.2 fl (7.0-11.0); MONO # 0.5 (0.1-0.6); MONO % 6.3 % (1.0-6.0); RBC 4.14 10^6/uL (3.5-6.1); RED CELL DISTRIBUTION WIDTH 13.6 % (11.5-14.5); WHITE BLOOD COUNT 7.6 10^3/ul (4.5-11.0)
[2018-03-02 23:41] LABS: INR 1.2; PROTHROMBIN TIME 13.7 SECONDS (9.4-12.5)
--- NOTE | 2018-03-03 00:43 | CP.PCM.HP ---
Addendum entered and electronically signed by Rosales Barry DO 03/03/18 05:22 : Plan should include for DVT ppx SCDs and Protonox for GI ppx; not using anticoagulation for EGD procedure tomorrow and prior brain bleed Original Note: <Rosales Barry - Last Filed: 03/03/18 00:59> History of Present Illness - History of Present Illness History of Present Illness: PGY-1 H&P for Dr. 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 Examination was limited as patient has aphasia due to CVA and unable to answer questions. Patient can shake his head yes or no when questioned. Patient did not complain of any acute pain. Patient stated that his abdominal pain was located at site of g-tube dislodge and not anywhere else on his abdomen. 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 & aphasia, paralysis, HTN, DM, G-tube in place PSH- cholecystectomy, tracheostomy FH: unable to attain Meds- metformin 500mg po bid, levetiracetem 500mg po bid, lasix 20mg po daily, eliquis 2.5mg po bid, folic acid 1mg po daily Allergies: NKDA Social- Denies alcohol, drug, and tobacco use Present on Admission - Present on Admission Any Indicators Present on Admission: No Review of Systems - Review of Systems Systems not reviewed;Unavailable: Acuity of Condition Past Patient History - Infectious Disease Hx of Infectious Diseases: None - Past Medical History & Family History Past Medical History?: Yes - Past Social History Smoking Status: Never Smoked - CARDIAC Hx Cardiac Disorders: Yes Hx Congestive Heart Failure: No Hx Heart Attack: No Hx Hypertension: Yes Hx Peripheral Edema: Yes (RIGHT FOOT) Hx Peripheral Vascular Disease: Yes (DVT) - PULMONARY Hx Respiratory Disorders: Yes Hx Chronic Obstructive Pulmonary Disease (COPD): No Hx Pneumonia: Yes Hx Sleep Apnea: No - NEUROLOGICAL Hx Neurological Disorder: Yes HX Cerebrovascular Accident: Yes (X 2 R sided weakness and aphasia) Hx Paralysis: Yes Hx Seizures: Yes (LAST ONE 3 YEARS AGO) Other/Comment: Right side Hemiplagia , Aphasia - HEENT Hx HEENT Problems: No - RENAL Hx Chronic Kidney Disease: No Hx Kidney Stones: Yes Hx Renal Failure: No - ENDOCRINE/METABOLIC Hx Endocrine Disorders: Yes Hx Diabetes Mellitus Type 1: No Hx Diabetes Mellitus Type 2: Yes Hx Hypothyroidism: No - HEMATOLOGICAL/ONCOLOGICAL Hx Blood Disorders: Yes Hx Blood Transfusions: Yes Hx Blood Transfusion Reaction: (UNK) Hx Cancer: No - INTEGUMENTARY Hx Dermatological Problems: No - MUSCULOSKELETAL/RHEUMATOLOGICAL Hx Musculoskeletal Disorders: Yes Hx Arthritis: No Hx Falls: Yes (past) Hx Fractures: No Hx Rheumatoid Arthritis: No Hx Unsteady Gait: Yes (CANNOT WALK) - GASTROINTESTINAL Hx Gastrointestinal Disorders: Yes Hx Gall Bladder Disease: Yes (gallstones) Hx Gastroesophageal Reflux: No Other/Comment: ercp Billary stent - GENITOURINARY/GYNECOLOGICAL Hx Genitourinary Disorders: Yes Hx Incontinence: Yes Hx Reproductive Disorders: No - PSYCHIATRIC Hx Psychophysiologic Disorder: No Hx Substance Use: No - SURGICAL HISTORY Hx Cholecystectomy: Yes Other/Comment: TRACHEOSTOMY - ANESTHESIA Hx Anesthesia: Yes Hx Anesthesia Reactions: No Hx Malignant Hyperthermia: No Meds Allergies/Adverse Reactions: Allergies Allergy/AdvReac Type Severity Reaction Status Date / Time No Known Allergies Allergy Verified 03/02/18 22:39 Physical Exam - Constitutional Appears: Non-toxic, No Acute Distress - Head Exam Head Exam: NORMAL INSPECTION, NORMOCEPHALIC - Eye Exam Eye Exam: EOMI, Normal appearance, PERRL. absent: Nystagmus - ENT Exam ENT Exam: Mucous Membranes Moist, Normal Exam - Respiratory Exam Respiratory Exam: Clear to Auscultation Bilateral, NORMAL BREATHING PATTERN. absent: Rales, Rhonchi, Wheezes - Cardiovascular Exam Cardiovascular Exam: REGULAR RHYTHM, +S1, +S2. absent: Tachycardia - GI/Abdominal Exam GI & Abdominal Exam: Normal Bowel Sounds, Soft, Tenderness. absent: Distended, Firm, Guarding Additional comments: tenderness at site of dislodged g tube - Extremities Exam Extremities exam: Positive for: normal inspection. Negative for: calf tenderness, pedal edema, tenderness - Neurological Exam Neurological exam: Alert, Oriented x3 - Psychiatric Exam Psychiatric exam: Normal Affect, Normal Mood - Skin Skin Exam: Intact, Normal Color Results - Vital Signs Recent Vital Signs: Last Vital Signs Temp 98.4 F 03/02/18 22:41 Pulse Resp BP 160/90 H 03/02/18 22:41 Pulse Ox - Labs Result Diagrams: 03/02/18 23:17 Assessment & Plan - Assessment and Plan (Free Text) Assessment: Dislodged G Tube GI consulted: Dr. Muller- will take patient for procedure tomorrow NPO Held ACs for procedure tomorrow HTN Lasix 20mg po daily Hx of seizures Levetiracetam 500mg po bid DM2 Metformin 500mg po bid ACHS; Hypoglycemic protocol A1C pending PPX: DVT ppx not indicated at this time <Brady Frank P - Last Filed: 03/03/18 07:30> Results - Vital Signs Recent Vital Signs: Last Vital Signs Temp 98.4 F 03/03/18 02:15 Pulse 95 H 03/03/18 02:15 Resp 20 03/03/18 02:15 BP 149/99 H 03/03/18 02:15 Pulse Ox 97 03/03/18 02:14 - Labs Result Diagrams: 03/02/18 23:17 03/03/18 06:30 Labs: Laboratory Results - last 24 hr 03/03/18 03/03/18 00:40 06:30 Sodium 146 142 Potassium 4.2 4.1 Chloride 105 105 Carbon Dioxide 31 29 Anion Gap 14 12 BUN 37 H 35 H Creatinine 1.1 1.1 Est GFR ( Amer) > 60 > 60 Est GFR (Non-Af Amer) > 60 > 60 Random Glucose 84 86 Calcium 9.4 9.4 Total Bilirubin 0.5 0.6 AST 27 27 ALT 23 21 Alkaline Phosphatase 43 43 Total Protein 7.2 7.7 Albumin 3.5 3.6 Globulin 3.7 4.0 Albumin/Globulin Ratio 1.0 L 0.9 L Attending/Attestation - Attestation I have personally seen and examined this patient.: Yes I have fully participated in the care of the patient.: Yes I have reviewed all pertinent clinical information: Yes Notes (Text): 03/03/18 07:28 PEG tube dislodged H/o left side brain hemorrhagic CVA, with aphasia and right hemiplegia, bed ridden, able to communicate with nodding the head Plan Observe GI consulted for PEG re-insertion. See orders for detail.
[2018-03-03] MEDS ORDERED: Dextrose 50% SYRINGE Inj (50 ml) IV PRN (00:54)
[2018-03-03 01:05] LABS: ALBUMIN 3.5 g/dL (3.0-4.8); ALT/SGPT 23 U/L (7-56); AST/SGOT 27 U/L (17-59); BLOOD UREA NITROGEN 37 mg/dL (7-21); CALCIUM 9.4 mg/dL (8.4-10.5); GFR NON-AFRICAN AMERICAN > 60
[2018-03-03 06:54] LABS: BASO # 0.04 K/mm3 (0.0-2.0); BASO % 0.5 % (0.0-3.0); EOS # 0.2 (0.0-0.7); EOS % 2.5 % (1.5-5.0); GRAN # 4.82 (1.4-6.5); GRAN % 66.1 % (50.0-68.0); HEMOGLOBIN 13.1 g/dL (14.0-18.0); LYMPH # 1.6 (1.2-3.4); LYMPH % 22.4 % (22.0-35.0); MEAN CELL VOLUME 101.8 fl (80.0-105.0); MEAN CORPUSCULAR HEMOGLOBIN 32.9 pg (25.0-35.0); MEAN CORPUSCULAR HGB CONC 32.3 g/dl (31.0-37.0); MEAN PLATELET VOLUME 12.1 fl (7.0-11.0); MONO # 0.6 (0.1-0.6); MONO % 8.5 % (1.0-6.0); RBC 3.98 10^6/uL (3.5-6.1); RED CELL DISTRIBUTION WIDTH 13.4 % (11.5-14.5); WHITE BLOOD COUNT 7.3 10^3/ul (4.5-11.0)
[2018-03-03 07:06] LABS: ALB/GLOB RATIO 0.9 (1.1-1.8); ALBUMIN 3.6 g/dL (3.0-4.8); ALT/SGPT 21 U/L (7-56); AST/SGOT 27 U/L (17-59); BLOOD UREA NITROGEN 35 mg/dL (7-21); CALCIUM 9.4 mg/dL (8.4-10.5); GFR NON-AFRICAN AMERICAN > 60
[2018-03-03] MEDS ORDERED: Bacitracin 500 Units/gm Oint Foilpak UD ONE (08:14)
[2018-03-03] MEDS ORDERED: levETIRAcetam 500mg IVPB 500 MG/100 ML BAG IVPB SCH (08:30)
[2018-03-03] MEDS: levETIRAcetam 500mg IVPB 500 MG/100 ML BAG IVPB SCH ×2 (09:58→22:30)
--- NOTE | 2018-03-03 10:54 | CP.PCM.CON ---
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 Patient has aphasia due to CVA and unable to answer questions so hx was gathered from EMR and pt's family. Per pt's son PEG came out at 11:30pm. Pt lives at home and getting feeds via peg and at times they will give him water and yogurt by mouth with no problems. In the Er placing a sullivan at site of peg was unsuccessful. On my exam the peg site was stenosed with pinpoint opening, unable to replace a peg at bedside. Pt is also on Eliquis and last dose was 24hrs ago at 03/02/18 11:00 am. This PEG was replaced 09/[address] Kc due to the initial one being stenosed. ROS: A 12pt ROS was unable to be obtained, pt nonverbal PMH: As stated in HPI PSH: cholecystectomy, tracheostomy reversed, PEG FH: unable to attained SH: unable to attained Past Patient History - Infectious Disease Hx of Infectious Diseases: None - Past Medical History & Family History Past Medical History?: Yes - Past Social History Smoking Status: Never Smoked - CARDIAC Hx Cardiac Disorders: Yes Hx Congestive Heart Failure: No Hx Hypertension: Yes Hx Peripheral Edema: Yes (RIGHT FOOT) Hx Peripheral Vascular Disease: Yes (DVT) - PULMONARY Hx Respiratory Disorders: Yes Hx Chronic Obstructive Pulmonary Disease (COPD): No Hx Pneumonia: Yes Hx Sleep Apnea: No - NEUROLOGICAL Hx Neurological Disorder: Yes HX Cerebrovascular Accident: Yes (X 2 R sided weakness and aphasia) Hx Seizures: Yes (LAST ONE 3 YEARS AGO) Other/Comment: Right side Hemiplagia , Aphasia - HEENT Hx HEENT Problems: No - RENAL Hx Chronic Kidney Disease: No Hx Kidney Stones: Yes Hx Renal Failure: No - ENDOCRINE/METABOLIC Hx Endocrine Disorders: Yes Hx Diabetes Mellitus Type 1: No Hx Diabetes Mellitus Type 2: Yes Hx Hypothyroidism: No - HEMATOLOGICAL/ONCOLOGICAL Hx Blood Disorders: Yes Hx Cancer: No - INTEGUMENTARY Hx Dermatological Problems: No - MUSCULOSKELETAL/RHEUMATOLOGICAL Hx Musculoskeletal Disorders: Yes Hx Arthritis: No Hx Falls: Yes (past) Hx Fractures: No Hx Unsteady Gait: Yes (CANNOT WALK) - GASTROINTESTINAL Hx Gastrointestinal Disorders: Yes Hx Gall Bladder Disease: Yes (gallstones) Hx Gastroesophageal Reflux: No Other/Comment: ercp Billary stent - GENITOURINARY/GYNECOLOGICAL Hx Genitourinary Disorders: Yes Hx Incontinence: Yes - PSYCHIATRIC Hx Psychophysiologic Disorder: No Hx Substance Use: No - SURGICAL HISTORY Hx Cholecystectomy: Yes Other/Comment: TRACHEOSTOMY - ANESTHESIA Hx Anesthesia: Yes Hx Anesthesia Reactions: No Hx Malignant Hyperthermia: No Meds Allergies/Adverse Reactions: Allergies Allergy/AdvReac Type Severity Reaction Status Date / Time No Known Allergies Allergy Verified 03/02/18 22:39 - Medications Medications: Current Medications Dextrose (Dextrose 50% Inj) 0 ml IV STAT PRN; Protocol PRN Reason: Hypoglycemia Protocol Enoxaparin Sodium (Lovenox) 40 mg SC DAILY [facility] PRN Reason: Protocol Stop: 03/05/18 10:01 Furosemide (Lasix) 20 mg IVP DAILY [facility] Last Admin: 03/03/18 09:59 Dose: 20 mg Dextrose (Dextrose 5% In Water 1000 Ml) 1,000 mls @ 0 mls/hr IV .Q0M PRN; Protocol; Per Protocol PRN Reason: Hypoglycemia Protocol Levetiracetam (Keppra 500mg Ivpb) 500 mg in 100 mls @ 400 mls/hr IVPB Q12 [facility] Last Admin: 03/03/18 09:58 Dose: 400 mls/hr Insulin Human Lispro (Humalog Low) 0 units SC ACHS [facility] PRN Reason: Protocol Pantoprazole Sodium (Protonix Inj) 40 mg IVP DAILY [facility] Last Admin: 03/03/18 10:00 Dose: 40 mg Physical Exam - Constitutional Appears: Non-toxic, No Acute Distress, Chronically Ill - Head Exam Head Exam: ATRAUMATIC, NORMAL INSPECTION, NORMOCEPHALIC - Eye Exam Eye Exam: EOMI, Normal appearance, PERRL Pupil Exam: PERRL - ENT Exam ENT Exam: Mucous Membranes Dry - Respiratory Exam Respiratory Exam: Decreased Breath Sounds, NORMAL BREATHING PATTERN - Cardiovascular Exam Cardiovascular Exam: RRR, +S1, +S2 - GI/Abdominal Exam GI & Abdominal Exam: Normal Bowel Sounds. absent: Distended, Firm, Guarding, Organomegaly, Soft, Tenderness Additional comments: peg site very small, no signs of infection - Rectal Exam Rectal Exam: Deferred - Extremities Exam Extremities exam: Positive for: full ROM, normal inspection - Neurological Exam Neurological exam: Alert - Psychiatric Exam Psychiatric exam: Flat Affect - Skin Skin Exam: Dry, Intact, Normal Color, Warm Results - Vital Signs Recent Vital Signs: Last Vital Signs Temp 97 F L 03/03/18 08:20 Pulse 92 H 03/03/18 08:20 Resp 20 03/03/18 08:20 BP 144/101 H 03/03/18 09:59 Pulse Ox 95 03/03/18 08:20 - Labs Result Diagrams: 03/03/18 05:00 03/03/18 06:30 Labs: Laboratory Results - last 24 hr 03/03/18 03/03/18 03/03/18 00:40 05:00 06:30 WBC 7.3 RBC 3.98 Hgb 13.1 L Hct 40.5 L MCV 101.8 MCH 32.9 MCHC 32.3 RDW 13.4 Plt Count 221 MPV 12.1 H Gran % 66.1 Lymph % (Auto) 22.4 Divide % (Auto) 8.5 H Eos % (Auto) 2.5 Baso % (Auto) 0.5 Gran # 4.82 Lymph # (Auto) 1.6 Divide # (Auto) 0.6 Eos # (Auto) 0.2 Baso # (Auto) 0.04 Sodium 146 142 Potassium 4.2 4.1 Chloride 105 105 Carbon Dioxide 31 29 Anion Gap 14 12 BUN 37 H 35 H Creatinine 1.1 1.1 Est GFR ( Amer) > 60 > 60 Est GFR (Non-Af Amer) > 60 > 60 POC Glucose (mg/dL) Random Glucose 84 86 Calcium 9.4 9.4 Total Bilirubin 0.5 0.6 AST 27 27 ALT 23 21 Alkaline Phosphatase 43 43 Total Protein 7.2 7.7 Albumin 3.5 3.6 Globulin 3.7 4.0 Albumin/Globulin Ratio 1.0 L 0.9 L 03/03/18 07:28 WBC RBC Hgb Hct MCV MCH MCHC RDW Plt Count MPV Gran % Lymph % (Auto) Divide % (Auto) Eos % (Auto) Baso % (Auto) Gran # Lymph # (Auto) Divide # (Auto) Eos # (Auto) Baso # (Auto) Sodium Potassium Chloride Carbon Dioxide Anion Gap BUN Creatinine Est GFR ( Amer) Est GFR (Non-Af Amer) POC Glucose (mg/dL) 88 Random Glucose Calcium Total Bilirubin AST ALT Alkaline Phosphatase Total Protein Albumin Globulin Albumin/Globulin Ratio Assessment & Plan - Assessment and Plan (Free Text) Assessment: Patient is a 63 yo male with PMH of 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 1. PEG Dislodged 2. PEG site stenosed 3. Hx of CVA and Dysphagia Plan: -Continue supportive care -OAC Eliquis needs to be on hold for 72hrs prior to PEG placement -Will plan for PEG on Tuesday03/07/18 -Recommend speech and swallow evaluation for possible pleasure feeds -IVF hydration -SCD for DVT ppx -Will continue to follow pt closely <Donald Drew - Last Filed: 03/03/18 19:12> Meds - Medications Medications: Current Medications Dextrose (Dextrose 50% Inj) 0 ml IV STAT PRN; Protocol PRN Reason: Hypoglycemia Protocol Enoxaparin Sodium (Lovenox) 40 mg SC DAILY [facility] PRN Reason: Protocol Stop: 03/05/18 10:01 Last Admin: 03/03/18 12:06 Dose: 40 mg Furosemide (Lasix) 20 mg IVP DAILY [facility] Last Admin: 03/03/18 09:59 Dose: 20 mg Dextrose (Dextrose 5% In Water 1000 Ml) 1,000 mls @ 0 mls/hr IV .Q0M PRN; Protocol; Per Protocol PRN Reason: Hypoglycemia Protocol Levetiracetam (Keppra 500mg Ivpb) 500 mg in 100 mls @ 400 mls/hr IVPB Q12 [facility] Last Admin: 03/03/18 09:58 Dose: 400 mls/hr Dextrose (Dextrose 5% In Water 1000 Ml) 1,000 mls @ 75 mls/hr IV .[id number] [facility] Last Admin: 03/03/18 13:49 Dose: 75 mls/hr Insulin Human Lispro (Humalog Low) 0 units SC ACHS [facility] PRN Reason: Protocol Last Admin: 03/03/18 18:11 Dose: Not Given Pantoprazole Sodium (Protonix Inj) 40 mg IVP DAILY [facility] Last Admin: 03/03/18 10:00 Dose: 40 mg Results - Vital Signs Recent Vital Signs: Last Vital Signs Temp 98.2 F 03/03/18 17:06 Pulse 81 03/03/18 17:06 Resp 19 03/03/18 17:06 BP 129/89 03/03/18 17:06 Pulse Ox 95 03/03/18 17:06 - Labs Result Diagrams: 03/03/18 05:00 03/03/18 06:30 Labs: Laboratory Results - last 24 hr 03/03/18 16:25 POC Glucose (mg/dL) 85 Attending/Attestation - Attestation I have personally seen and examined this patient.: Yes I have fully participated in the care of the patient.: Yes I have reviewed all pertinent clinical information: Yes Notes (Text): 03/03/18 19:10 This is a 63 yr old male with PMH of 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 On eliquis that needs to be held for 72 hours prior to endoscopic placement. Likely plan for PEG on 03/07. Supportive care.
[2018-03-03] MEDS: Insulin Lispro (humaLOG) LOW Coverage SC SCH ×3 (12:02→22:30)
[2018-03-03] MEDS: Enoxaparin 40 mg Syringe SC SCH (12:06)
[2018-03-03] MEDS ORDERED: Furosemide 40 mg/5 mL Oral Soln UD PEG SCH (14:00)
[2018-03-03] MEDS ORDERED: levETIRAcetam 1,000 MG in Sodium Chloride 0.9% 100 ML IV SCH (14:00)
[2018-03-04] MEDS: Insulin Lispro (humaLOG) LOW Coverage SC SCH ×4 (09:05→21:43)
[2018-03-04 10:26] LABS: BASO # 0.02 K/mm3 (0.0-2.0); BASO % 0.4 % (0.0-3.0); EOS # 0.2 (0.0-0.7); EOS % 3.7 % (1.5-5.0); GRAN # 3.45 (1.4-6.5); GRAN % 60.9 % (50.0-68.0); HEMOGLOBIN 12.5 g/dL (14.0-18.0); LYMPH # 1.5 (1.2-3.4); LYMPH % 27.2 % (22.0-35.0); MEAN CELL VOLUME 101.4 fl (80.0-105.0); MEAN CORPUSCULAR HEMOGLOBIN 33.8 pg (25.0-35.0); MEAN CORPUSCULAR HGB CONC 33.3 g/dl (31.0-37.0); MEAN PLATELET VOLUME 10.7 fl (7.0-11.0); MONO # 0.4 (0.1-0.6); MONO % 7.8 % (1.0-6.0); RBC 3.7 10^6/uL (3.5-6.1); RED CELL DISTRIBUTION WIDTH 13.2 % (11.5-14.5); WHITE BLOOD COUNT 5.7 10^3/ul (4.5-11.0)
[2018-03-04 10:46] LABS: ALB/GLOB RATIO 0.9 (1.1-1.8); ALBUMIN 3.3 g/dL (3.0-4.8); ALT/SGPT 22 U/L (7-56); AST/SGOT 26 U/L (17-59); BLOOD UREA NITROGEN 26 mg/dL (7-21); CALCIUM 8.8 mg/dL (8.4-10.5); GFR NON-AFRICAN AMERICAN > 60
[2018-03-04] MEDS: Enoxaparin 40 mg Syringe SC SCH (12:25)
[2018-03-04] MEDS: levETIRAcetam 500mg IVPB 500 MG/100 ML BAG IVPB SCH ×2 (12:26→21:42)
--- NOTE | 2018-03-04 14:42 | CP.PCM.PN ---
<Tala Ruano - Last Filed: 03/04/18 16:05> Subjective - Date & Time of Evaluation Date of Evaluation: 03/04/18 Time of Evaluation: 09:39 - Subjective Subjective: Tala Ruano DO, PGY-2: Progress Note for Dr. Abril Bragg Patient seen and examined at bedside. Patient endorses no complaints. He is aphasic secondary to hemorrhagic stroke. Nurse reports no adverse events overnight. RETAIL DISTRICT MANAGER recommendations noted. Objective - Vital Signs/Intake and Output Vital Signs (last 24 hours): Temp Pulse Resp BP Pulse Ox 97.4 F L 85 20 146/68 97 03/04/18 06:00 03/04/18 06:00 03/04/18 06:00 03/04/18 10:30 03/04/18 06:00 Intake and Output: 03/04/18 03/04/18 06:59 18:59 Intake Total 1160 Output Total 550 Balance 610 - Medications Medications: Current Medications Dextrose (Dextrose 50% Inj) 0 ml IV STAT PRN; Protocol PRN Reason: Hypoglycemia Protocol Enoxaparin Sodium (Lovenox) 40 mg SC DAILY [facility] PRN Reason: Protocol Stop: 03/05/18 10:01 Last Admin: 03/04/18 12:25 Dose: 40 mg Furosemide (Lasix) 20 mg IVP DAILY [facility] Last Admin: 03/04/18 10:30 Dose: 20 mg Dextrose (Dextrose 5% In Water 1000 Ml) 1,000 mls @ 0 mls/hr IV .Q0M PRN; Protocol; Per Protocol PRN Reason: Hypoglycemia Protocol Levetiracetam (Keppra 500mg Ivpb) 500 mg in 100 mls @ 400 mls/hr IVPB Q12 [facility] Last Admin: 03/04/18 12:26 Dose: 400 mls/hr Dextrose (Dextrose 5% In Water 1000 Ml) 1,000 mls @ 75 mls/hr IV .[id number] [facility] Last Admin: 03/03/18 13:49 Dose: 75 mls/hr Insulin Human Lispro (Humalog Low) 0 units SC ACHS [facility] PRN Reason: Protocol Last Admin: 03/04/18 12:23 Dose: Not Given Pantoprazole Sodium (Protonix Inj) 40 mg IVP DAILY [facility] Last Admin: 03/04/18 10:30 Dose: 40 mg - Labs Labs: 03/04/18 10:14 03/04/18 10:14 PT 13.7 SECONDS (9.4-12.5) H 03/02/18 23:17 INR 1.20 03/02/18 23:17 APTT 35.0 Seconds (25.1-36.5) 03/02/18 23:17 - Constitutional Appears: Well, Non-toxic - Head Exam Head Exam: ATRAUMATIC, NORMOCEPHALIC - Eye Exam Eye Exam: EOMI, Normal appearance - ENT Exam ENT Exam: Mucous Membranes Moist - Neck Exam Neck Exam: Normal Inspection - Respiratory Exam Respiratory Exam: Clear to Ausculation Bilateral, NORMAL BREATHING PATTERN. absent: Accessory Muscle Use - Cardiovascular Exam Cardiovascular Exam: RRR, +S1, +S2 - GI/Abdominal Exam GI & Abdominal Exam: Soft. absent: Guarding, Rebound Additional comments: previous g- tube site shows no erythema or bleeding - Extremities Exam Extremities Exam: absent: Calf Tenderness Additional comments: right lower extremity contractured - Neurological Exam Neurological Exam: Awake Additional comments: right hemiplegia - Psychiatric Exam Psychiatric exam: Normal Affect - Skin Skin Exam: Dry, Intact, Normal Color, Warm Assessment and Plan - Assessment and Plan (Free Text) Assessment: 63 year old male with a past medical history of hemorrhagic stroke, right-sided weakness with aphasia, hypertension, DM II, bed-bound and seizure disorder who presents after his G-tube was dislodged. Currently, he is on D5W for nutrition awaiting placmement of endoscopic placement of G-tube 03/07/18 with Eliquis held and on prophylactic dose of Lovenox. US of right LE showed no DVT. RETAIL DISTRICT MANAGER recommends Pureed, nectar thick liquid with HOB 90 degrees for all meals, slow single sips and bites, 1/2 teaspoon presentation with further recommedations. GI following. Plan: 1) GI tube dislodged - holding eliqius - GI consulted, Dr. Muller/Gaby - 03/07/18 tentatively for endoscopically assisted placement of PEG tube - NPO - D5W 75 ml/hr - RETAIL DISTRICT MANAGER recommendations appreciated 2) Hypertension - Lasix 20mg po daily 3) Seizure disorder Levetiracetam 500mg IVPB BID 4) DM2 ISS (low) ACHS Hypoglycemic protocol HgbA1c 4.5 5) GI/DVT Prophylaxis - Protonix 40 mg IVP - Lovenox 40 mg SC Case was reviewed and discussed with attending physician, Dr. Abril Bragg <Abril Bragg R - Last Filed: 03/05/18 13:12> Objective - Vital Signs/Intake and Output Vital Signs (last 24 hours): Temp Pulse Resp BP Pulse Ox 98.0 F 81 16 121/85 96 03/05/18 06:00 03/05/18 06:00 03/05/18 06:00 03/05/18 09:05 03/05/18 06:00 Intake and Output: 03/05/18 03/05/18 06:59 18:59 Intake Total 900 Balance 900 - Medications Medications: Current Medications Dextrose (Dextrose 50% Inj) 0 ml IV STAT PRN; Protocol PRN Reason: Hypoglycemia Protocol Furosemide (Lasix) 20 mg IVP DAILY [facility] Last Admin: 03/05/18 09:05 Dose: 20 mg Dextrose (Dextrose 5% In Water 1000 Ml) 1,000 mls @ 0 mls/hr IV .Q0M PRN; Protocol; Per Protocol PRN Reason: Hypoglycemia Protocol Levetiracetam (Keppra 500mg Ivpb) 500 mg in 100 mls @ 400 mls/hr IVPB Q12 [facility] Last Admin: 03/05/18 09:05 Dose: 400 mls/hr Dextrose (Dextrose 5% In Water 1000 Ml) 1,000 mls @ 75 mls/hr IV .[id number] [facility] Last Admin: 03/04/18 21:55 Dose: 75 mls/hr Insulin Human Lispro (Humalog Low) 0 units SC ACHS [facility] PRN Reason: Protocol Last Admin: 03/05/18 11:57 Dose: Not Given Pantoprazole Sodium (Protonix Inj) 40 mg IVP DAILY [facility] Last Admin: 03/05/18 09:05 Dose: 40 mg - Labs Labs: 03/05/18 06:30 03/05/18 06:30 PT 13.7 SECONDS (9.4-12.5) H 03/02/18 23:17 INR 1.20 03/02/18 23:17 APTT 35.0 Seconds (25.1-36.5) 03/02/18 23:17 Attending/Attestation - Attestation I have personally seen and examined this patient.: Yes I have fully participated in the care of the patient.: Yes I have reviewed all pertinent clinical information, including history, physical exam and plan: Yes Notes (Text): Patient seen and examined by me at 9:30AM with resident 03/04/18. Case including HPI, physical exam, and assessment and plan discussed with resident. Agree with above with following additions/corrections. Patient is a 63-year-old male with past medical history of CVA secondary to intracerebral hemorrhage with right-sided weakness and aphasia, right-sided hemiparesis, hypertension, type 2 diabetes, and status post G-tube placement that presented to the emergency room for dislodged G-tube. Patient is a aphasic. Unable to obtain review of systems from patient. Patient nods his head "no" when asked if he is having any pain. No new events overnight per nurse. Patient is afebrile. Physical exam: General: Awake and alert lying in bed in no acute distress HEENT: Normocephalic atraumatic. Pupils equal reactive. Extraocular muscles intact. No scleral icterus. Oropharynx is pink. Positive dry mucous membranes. Neck is supple. Cardiovascular: Normal rhythm. Normal S1, S2. No murmurs, rubs, or gallops appreciated Pulmonary: Normal respiratory effort. No rhonchi, rales or wheezing appreciated. Gastrointestinal: Soft, nondistended. Nontender. Positive bowel sounds all 4 quadrants, no guarding. G-tube site with no signs of infection. Musculoskeletal: Right lower extremity edema Central nervous system: Awake and alert. Aphasic. Positive right-sided hemiparesis Dermatologic: Skin warm and dry Assessment and plan: Patient is a 63-year-old male with past medical history of CVA secondary to intracerebral hemorrhage with right-sided weakness and aphasia , right-sided hemiparesis, hypertension, type 2 diabetes, and status post G- tube placement that presented to the emergency room for dislodged G-tube. 1. Malfunctioning G-tube. GI following, recommendations appreciated. Patient for placement of PEG tube likely on 03/07/2018. Eliquis held for now. Place on IV fluids. Patient seen by speech and swallow who recommends thickened nectar liquids and pure diet only for pleasure feeds. Continue with nothing by mouth for now. 2. History of hemorrhagic stroke with right-sided hemiparesis. Patient is not on statin at home. Patient should follow up with primary care doctor or neurologist for need for statin. Patient is on Eliquis at home. 3. History of seizures. Continue with Keppra. 4. Type 2 diabetes. Continue with insulin sliding scale. Due to monitor Accu- Cheks. 5. Right lower extremity edema. Doppler negative for DVT. Continue home Lasix. 6. GI/DVT prophylaxis. Protonix and Lovenox
[2018-03-05 07:29] LABS: BASO # 0.02 K/mm3 (0.0-2.0); BASO % 0.4 % (0.0-3.0); EOS # 0.2 (0.0-0.7); EOS % 3.1 % (1.5-5.0); GRAN # 3.16 (1.4-6.5); GRAN % 58.4 % (50.0-68.0); HEMOGLOBIN 12.6 g/dL (14.0-18.0); LYMPH # 1.5 (1.2-3.4); LYMPH % 27.2 % (22.0-35.0); MEAN CORPUSCULAR HEMOGLOBIN 33.1 pg (25.0-35.0); MEAN CORPUSCULAR HGB CONC 33.1 g/dl (31.0-37.0); MEAN PLATELET VOLUME 11.2 fl (7.0-11.0); MONO # 0.6 (0.1-0.6); MONO % 10.9 % (1.0-6.0); RBC 3.81 10^6/uL (3.5-6.1); RED CELL DISTRIBUTION WIDTH 13.2 % (11.5-14.5); WHITE BLOOD COUNT 5.4 10^3/ul (4.5-11.0)
[2018-03-05 07:44] LABS: ALB/GLOB RATIO 0.9 (1.1-1.8); ALBUMIN 3.4 g/dL (3.0-4.8); ALT/SGPT 24 U/L (7-56); AST/SGOT 28 U/L (17-59); BLOOD UREA NITROGEN 24 mg/dL (7-21); CALCIUM 8.7 mg/dL (8.4-10.5); GFR NON-AFRICAN AMERICAN > 60
[2018-03-05] MEDS: Insulin Lispro (humaLOG) LOW Coverage SC SCH ×4 (08:08→21:49)
--- NOTE | 2018-03-05 08:13 | CP.PCM.PN ---
<Anne Ortiz - Last Filed: 03/05/18 13:34> Subjective - Date & Time of Evaluation Date of Evaluation: 03/05/18 Time of Evaluation: 08:11 - Subjective Subjective: PGY-3 progress note for Hospitalist service Patient was seen and examined at bedside, no acute distress, he is resting comfortably. Nurse reports no acute events overnight. Patient denies any pain. Objective - Vital Signs/Intake and Output Vital Signs (last 24 hours): Temp Pulse Resp BP Pulse Ox 98.4 F 82 20 122/86 96 03/04/18 16:13 03/04/18 16:13 03/04/18 16:13 03/04/18 16:13 03/04/18 16:13 Intake and Output: 03/05/18 03/05/18 06:59 18:59 Intake Total 900 Balance 900 - Medications Medications: Current Medications Dextrose (Dextrose 50% Inj) 0 ml IV STAT PRN; Protocol PRN Reason: Hypoglycemia Protocol Enoxaparin Sodium (Lovenox) 40 mg SC DAILY [facility] PRN Reason: Protocol Stop: 03/05/18 10:01 Last Admin: 03/04/18 12:25 Dose: 40 mg Furosemide (Lasix) 20 mg IVP DAILY [facility] Last Admin: 03/04/18 10:30 Dose: 20 mg Dextrose (Dextrose 5% In Water 1000 Ml) 1,000 mls @ 0 mls/hr IV .Q0M PRN; Protocol; Per Protocol PRN Reason: Hypoglycemia Protocol Levetiracetam (Keppra 500mg Ivpb) 500 mg in 100 mls @ 400 mls/hr IVPB Q12 [facility] Last Admin: 03/04/18 21:42 Dose: 400 mls/hr Dextrose (Dextrose 5% In Water 1000 Ml) 1,000 mls @ 75 mls/hr IV .[id number] [facility] Last Admin: 03/04/18 21:55 Dose: 75 mls/hr Insulin Human Lispro (Humalog Low) 0 units SC ACHS [facility] PRN Reason: Protocol Last Admin: 03/05/18 08:08 Dose: Not Given Pantoprazole Sodium (Protonix Inj) 40 mg IVP DAILY [facility] Last Admin: 03/04/18 10:30 Dose: 40 mg - Labs Labs: 03/05/18 06:30 03/05/18 06:30 PT 13.7 SECONDS (9.4-12.5) H 03/02/18 23:17 INR 1.20 03/02/18 23:17 APTT 35.0 Seconds (25.1-36.5) 03/02/18 23:17 - Constitutional Appears: No Acute Distress - Head Exam Head Exam: ATRAUMATIC, NORMOCEPHALIC - Eye Exam Eye Exam: EOMI, Normal appearance - ENT Exam ENT Exam: Mucous Membranes Moist - Respiratory Exam Respiratory Exam: Clear to Ausculation Bilateral, NORMAL BREATHING PATTERN. absent: Rhonchi, Wheezes, Respiratory Distress - Cardiovascular Exam Cardiovascular Exam: REGULAR RHYTHM, +S1, +S2. absent: Bradycardia, Tachycardia , Irregular Rhythm, Murmur - GI/Abdominal Exam GI & Abdominal Exam: Soft, Normal Bowel Sounds. absent: Distended, Firm, Tenderness Additional comments: site of dislodged GI tube in upper left quadrant is clean, no erythema, no discharge - Extremities Exam Extremities Exam: absent: Tenderness Additional comments: right lower extremity contractured - Neurological Exam Neurological Exam: Alert, Awake Additional comments: right hemiplegia - Skin Skin Exam: Dry, Intact, Normal Color, Warm Assessment and Plan - Assessment and Plan (Free Text) Assessment: 63 yo male with a past medical history of hemorrhagic stroke, right-sided weakness with aphasia, hypertension, DM II, bed-bound and seizure disorder who presents after his G-tube was dislodged, awaiting endoscopic placement of G- tube with Eliquis held. Plan: GI tube dislodged - holding eliqius, and on prophylactic dose of Lovenox - awaiting endoscopically assisted placement of PEG tube - Currently, he is on D5W for nutrition - [employer] recommended Pureed, nectar thick liquid for pleasure feeds, will keep patient NPO - GI consulted, Dr. Muller h/o right hemiplegia with lower extremity swelling - US of right LE showed no DVT Hypertension - controlled - will hold Lasix due to IVF Seizure disorder - continue Levetiracetam 500mg IVPB BID history of DM2 - ISS (low) - fingersticks ACHS - HgbA1c 4.5 GI/DVT Prophylaxis - Protonix 40 mg IVP - Lovenox 40 mg SC Case was reviewed and discussed with attending physician, Dr. Abril Bragg <Abril Bragg - Last Filed: 03/06/18 10:45> Objective - Vital Signs/Intake and Output Vital Signs (last 24 hours): Temp Pulse Resp BP Pulse Ox 97.7 F 96 H 16 136/97 H 95 03/06/18 08:29 03/06/18 08:29 03/06/18 08:29 03/06/18 08:29 03/06/18 08:29 Intake and Output: 03/06/18 03/06/18 06:59 18:59 Output Total 600 Balance -600 - Medications Medications: Current Medications Dextrose (Dextrose 50% Inj) 0 ml IV STAT PRN; Protocol PRN Reason: Hypoglycemia Protocol Furosemide (Lasix) 20 mg IVP DAILY [facility] Last Admin: 03/05/18 09:05 Dose: 20 mg Dextrose (Dextrose 5% In Water 1000 Ml) 1,000 mls @ 0 mls/hr IV .Q0M PRN; Protocol; Per Protocol PRN Reason: Hypoglycemia Protocol Levetiracetam (Keppra 500mg Ivpb) 500 mg in 100 mls @ 400 mls/hr IVPB Q12 [facility] Last Admin: 03/06/18 10:33 Dose: 400 mls/hr Dextrose (Dextrose 5% In Water 1000 Ml) 1,000 mls @ 75 mls/hr IV .[id number] [facility] Last Admin: 03/05/18 23:03 Dose: Not Given Insulin Human Lispro (Humalog Low) 0 units SC ACHS [facility] PRN Reason: Protocol Last Admin: 03/06/18 10:29 Dose: Not Given Pantoprazole Sodium (Protonix Inj) 40 mg IVP DAILY [facility] Last Admin: 03/06/18 10:33 Dose: 40 mg - Labs Labs: 03/06/18 06:00 03/06/18 06:00 PT 13.7 SECONDS (9.4-12.5) H 03/02/18 23:17 INR 1.20 03/02/18 23:17 APTT 35.0 Seconds (25.1-36.5) 03/02/18 23:17 Attending/Attestation - Attestation I have personally seen and examined this patient.: Yes I have fully participated in the care of the patient.: Yes I have reviewed all pertinent clinical information, including history, physical exam and plan: Yes Notes (Text): Patient seen and examined by me at 9:40AM with resident 9/2/18. Case including HPI, physical exam, and assessment and plan discussed with resident. Agree with above with following additions/corrections. Patient is a 63-year-old male with past medical history of CVA secondary to intracerebral hemorrhage with right-sided weakness and aphasia, right-sided hemiparesis, hypertension, type 2 diabetes, and status post G-tube placement that presented to the emergency room for dislodged G-tube. Patient is a aphasic secondary to previous CVA. Patient is nodding his head "no" when asked if he is having any pain. He is denying any chest or abdominal pain. No new events overnight per nurse. Patient is afebrile. Unable to obtain any other review of systems from patient. Physical exam: General: Awake and alert lying in bed in no acute distress HEENT: Normocephalic atraumatic. Pupils equal reactive. Extraocular muscles intact. No scleral icterus. Oropharynx is pink. Positive dry mucous membranes. Neck is supple. Cardiovascular: Normal rhythm. Normal S1, S2. No murmurs, rubs, or gallops appreciated Pulmonary: Normal respiratory effort. No rhonchi, rales or wheezing appreciated. Gastrointestinal: Soft, nondistended. Nontender. Positive bowel sounds all 4 quadrants, no guarding. G-tube site with no signs of infection. Area looks like it is starting to scab. Musculoskeletal: Right lower extremity edema Central nervous system: Awake and alert. Aphasic. Positive right-sided hemiparesis Dermatologic: Skin warm and dry Assessment and plan: Patient is a 63-year-old male with past medical history of CVA secondary to intracerebral hemorrhage with right-sided weakness and aphasia , right-sided hemiparesis, hypertension, type 2 diabetes, and status post G- tube placement that presented to the emergency room for dislodged G-tube. 1. Malfunctioning G-tube. GI following, recommendations appreciated. Patient for placement of PEG tube likely on 03/07/2018. Continue to hold Eliquis. Continue IV fluids. Patient seen by speech and swallow who recommends thickened nectar liquids and pure diet only for pleasure feeds. Continue with nothing by mouth for now. 2. History of hemorrhagic stroke with right-sided hemiparesis. Patient is not on statin at home. Patient should follow up with primary care doctor or neurologist for need for statin. Patient is on Eliquis at home. 3. History of seizures. Continue with Keppra. 4. Type 2 diabetes. Continue with insulin sliding scale. Continue to monitor Accu-Cheks. 5. Right lower extremity edema. Doppler negative for DVT. Hold lasix for now as patient is on IV fluids. 6. History of DVT. Patient is on Eliquis at home. Eliquis on hold for now. 7. GI/DVT prophylaxis. Protonix and Lovenox
[2018-03-05] MEDS: levETIRAcetam 500mg IVPB 500 MG/100 ML BAG IVPB SCH ×2 (09:05→22:09)
[2018-03-05] MEDS: Enoxaparin 40 mg Syringe SC SCH (09:06)
[2018-03-06 06:48] LABS: BASO # 0.02 K/mm3 (0.0-2.0); BASO % 0.3 % (0.0-3.0); EOS # 0.2 (0.0-0.7); EOS % 3.3 % (1.5-5.0); GRAN # 3.7 (1.4-6.5); GRAN % 60.3 % (50.0-68.0); HEMOGLOBIN 13.5 g/dL (14.0-18.0); LYMPH # 1.6 (1.2-3.4); LYMPH % 25.8 % (22.0-35.0); MEAN CORPUSCULAR HEMOGLOBIN 33.4 pg (25.0-35.0); MEAN CORPUSCULAR HGB CONC 33.4 g/dl (31.0-37.0); MEAN PLATELET VOLUME 11.2 fl (7.0-11.0); MONO # 0.6 (0.1-0.6); MONO % 10.3 % (1.0-6.0); RBC 4.04 10^6/uL (3.5-6.1); RED CELL DISTRIBUTION WIDTH 13.1 % (11.5-14.5); WHITE BLOOD COUNT 6.1 10^3/ul (4.5-11.0)
[2018-03-06 07:43] LABS: ALB/GLOB RATIO 0.9 (1.1-1.8); ALBUMIN 3.5 g/dL (3.0-4.8); ALT/SGPT 31 U/L (7-56); AST/SGOT 36 U/L (17-59); BLOOD UREA NITROGEN 22 mg/dL (7-21); GFR NON-AFRICAN AMERICAN > 60
[2018-03-06] MEDS: Insulin Lispro (humaLOG) LOW Coverage SC SCH ×4 (10:29→21:47)
[2018-03-06] MEDS: levETIRAcetam 500mg IVPB 500 MG/100 ML BAG IVPB SCH ×2 (10:33→21:47)
--- NOTE | 2018-03-06 13:09 | CP.PCM.PN ---
<Marino Vang - Last Filed: 03/06/18 13:47> Subjective - Date & Time of Evaluation Date of Evaluation: 03/06/18 Time of Evaluation: 13:09 - Subjective Subjective: GI Fellow [id number] Patient S/E at bedside. No acute overnight events. I discussed procedure (PEG) with son along with risks and benefits. Son is okay with procedure tomorrow. Consent is signed and in chart. Objective - Vital Signs/Intake and Output Vital Signs (last 24 hours): Temp Pulse Resp BP Pulse Ox 97.7 F 96 H 16 136/97 H 95 03/06/18 08:29 03/06/18 08:29 03/06/18 08:29 03/06/18 08:29 03/06/18 08:29 Intake and Output: 03/06/18 03/06/18 06:59 18:59 Output Total 600 Balance -600 - Medications Medications: Current Medications Dextrose (Dextrose 50% Inj) 0 ml IV STAT PRN; Protocol PRN Reason: Hypoglycemia Protocol Furosemide (Lasix) 20 mg IVP DAILY [facility] Last Admin: 03/05/18 09:05 Dose: 20 mg Dextrose (Dextrose 5% In Water 1000 Ml) 1,000 mls @ 0 mls/hr IV .Q0M PRN; Protocol; Per Protocol PRN Reason: Hypoglycemia Protocol Levetiracetam (Keppra 500mg Ivpb) 500 mg in 100 mls @ 400 mls/hr IVPB Q12 [facility] Last Admin: 03/06/18 10:33 Dose: 400 mls/hr Dextrose (Dextrose 5% In Water 1000 Ml) 1,000 mls @ 75 mls/hr IV .[id number] [facility] Last Admin: 03/05/18 23:03 Dose: Not Given Insulin Human Lispro (Humalog Low) 0 units SC ACHS [facility] PRN Reason: Protocol Last Admin: 03/06/18 12:24 Dose: Not Given Pantoprazole Sodium (Protonix Inj) 40 mg IVP DAILY [facility] Last Admin: 03/06/18 10:33 Dose: 40 mg - Labs Labs: 03/06/18 06:00 03/06/18 06:00 PT 13.7 SECONDS (9.4-12.5) H 03/02/18 23:17 INR 1.20 03/02/18 23:17 APTT 35.0 Seconds (25.1-36.5) 03/02/18 23:17 - Constitutional Appears: Well, No Acute Distress - Head Exam Head Exam: NORMAL INSPECTION - Eye Exam Eye Exam: Normal appearance - ENT Exam ENT Exam: Mucous Membranes Moist - Cardiovascular Exam Cardiovascular Exam: REGULAR RHYTHM - GI/Abdominal Exam GI & Abdominal Exam: Soft, Normal Bowel Sounds. absent: Tenderness - Extremities Exam Extremities Exam: Normal Inspection - Neurological Exam Neurological Exam: Alert, Altered, Awake - Psychiatric Exam Psychiatric exam: Flat Affect - Skin Skin Exam: Dry Assessment and Plan - Assessment and Plan (Free Text) Assessment: Patient is a 63 yo male with PMH of CVA 2/2 intracerbral hemorrhage with right sided weakness & aphasia, paralysis, HTN, DM, who [place] [facility] [place]. 1. PEG Dislodged 2. PEG site stenosed 3. Hx of CVA and Dysphagia Plan: -Continue supportive care -He has been off Elequis greater than 3 days now. -Will plan for PEG on Tuesday03/07/18 -IVF hydration -SCD for DVT ppx -Will continue to follow pt closely -He will need abx in am. -Consent in chart. Discussed benefits and risk with son, Eric Cotto. <Gavino Chiu - Last Filed: 03/06/18 19:36> Objective - Vital Signs/Intake and Output Vital Signs (last 24 hours): Temp Pulse Resp BP Pulse Ox 98.4 F 76 19 145/97 H 97 03/06/18 16:20 03/06/18 16:20 03/06/18 16:20 03/06/18 16:20 03/06/18 16:20 Intake and Output: 03/06/18 03/07/18 18:59 06:59 Intake Total 1000 Balance 1000 - Medications Medications: Current Medications Dextrose (Dextrose 50% Inj) 0 ml IV STAT PRN; Protocol PRN Reason: Hypoglycemia Protocol Furosemide (Lasix) 20 mg IVP DAILY [facility] Last Admin: 03/05/18 09:05 Dose: 20 mg Dextrose (Dextrose 5% In Water 1000 Ml) 1,000 mls @ 0 mls/hr IV .Q0M PRN; Protocol; Per Protocol PRN Reason: Hypoglycemia Protocol Levetiracetam (Keppra 500mg Ivpb) 500 mg in 100 mls @ 400 mls/hr IVPB Q12 [facility] Last Admin: 03/06/18 10:33 Dose: 400 mls/hr Dextrose (Dextrose 5% In Water 1000 Ml) 1,000 mls @ 75 mls/hr IV .[id number] [facility] Last Admin: 03/05/18 23:03 Dose: Not Given Insulin Human Lispro (Humalog Low) 0 units SC ACHS [facility] PRN Reason: Protocol Last Admin: 03/06/18 17:00 Dose: Not Given Pantoprazole Sodium (Protonix Inj) 40 mg IVP DAILY [facility] Last Admin: 03/06/18 10:33 Dose: 40 mg - Labs Labs: 03/06/18 06:00 03/06/18 06:00 PT 13.7 SECONDS (9.4-12.5) H 03/02/18 23:17 INR 1.20 03/02/18 23:17 APTT 35.0 Seconds (25.1-36.5) 03/02/18 23:17 Attending/Attestation - Attestation I have personally seen and examined this patient.: Yes I have fully participated in the care of the patient.: Yes I have reviewed all pertinent clinical information, including history, physical exam and plan: Yes Notes (Text): 03/06/18 19:35 Chart reviewed. Patient interviewed and examined. Awake and alert. Agree with the findings on the exam. Assessment and recommendations, as documented above, were discussed with Dr. Vang. Discussed with the pt's nurse.
--- NOTE | 2018-03-06 14:59 | CP.PCM.PN ---
<Nick Rico - Last Filed: 03/06/18 14:56> Subjective - Date & Time of Evaluation Date of Evaluation: 03/06/18 Time of Evaluation: 14:56 - Subjective Subjective: Nick Rico, PGY-1 Progress Note for Hospitalist Service Patient seen and examined at bedside this morning. No acute events overnight. Patient offers no new complaints at this time. Awaiting G tube placement tomorrow. Objective - Vital Signs/Intake and Output Vital Signs (last 24 hours): Temp Pulse Resp BP Pulse Ox 97.7 F 96 H 16 136/97 H 95 03/06/18 08:29 03/06/18 08:29 03/06/18 08:29 03/06/18 08:29 03/06/18 08:29 Intake and Output: 03/06/18 03/06/18 06:59 18:59 Output Total 600 Balance -600 - Medications Medications: Current Medications Dextrose (Dextrose 50% Inj) 0 ml IV STAT PRN; Protocol PRN Reason: Hypoglycemia Protocol Furosemide (Lasix) 20 mg IVP DAILY [facility] Last Admin: 03/05/18 09:05 Dose: 20 mg Dextrose (Dextrose 5% In Water 1000 Ml) 1,000 mls @ 0 mls/hr IV .Q0M PRN; Protocol; Per Protocol PRN Reason: Hypoglycemia Protocol Levetiracetam (Keppra 500mg Ivpb) 500 mg in 100 mls @ 400 mls/hr IVPB Q12 [facility] Last Admin: 03/06/18 10:33 Dose: 400 mls/hr Dextrose (Dextrose 5% In Water 1000 Ml) 1,000 mls @ 75 mls/hr IV .[id number] [facility] Last Admin: 03/05/18 23:03 Dose: Not Given Insulin Human Lispro (Humalog Low) 0 units SC ACHS [facility] PRN Reason: Protocol Last Admin: 03/06/18 12:24 Dose: Not Given Pantoprazole Sodium (Protonix Inj) 40 mg IVP DAILY [facility] Last Admin: 03/06/18 10:33 Dose: 40 mg - Labs Labs: 03/06/18 06:00 03/06/18 06:00 PT 13.7 SECONDS (9.4-12.5) H 03/02/18 23:17 INR 1.20 03/02/18 23:17 APTT 35.0 Seconds (25.1-36.5) 03/02/18 23:17 - Constitutional Appears: No Acute Distress - Head Exam Head Exam: ATRAUMATIC, NORMAL INSPECTION - Eye Exam Eye Exam: EOMI Pupil Exam: PERRL - Respiratory Exam Respiratory Exam: Clear to Ausculation Bilateral. absent: Respiratory Distress - Cardiovascular Exam Cardiovascular Exam: REGULAR RHYTHM, +S1, +S2 - GI/Abdominal Exam GI & Abdominal Exam: Normal Bowel Sounds. absent: Guarding, Rigid Additional comments: healing right abdomen scar from previous G tube - Extremities Exam Extremities Exam: Normal Inspection. absent: Calf Tenderness - Neurological Exam Neurological Exam: Alert, Awake - Skin Skin Exam: Normal Color, Warm Assessment and Plan - Assessment and Plan (Free Text) Assessment: 63 yo male with a past medical history of hemorrhagic stroke, right-sided weakness with aphasia, hypertension, DM II, bed-bound and seizure disorder who presents after his G-tube was dislodged. Eliquis on hold. G tube scheduled to be placed tomorrow by GI team. Plan: G tube placement -scheduled to be placed endoscopically tomorrow by GI team -continue D5 drip for nutrition -not on eliquis at this time -speech pathology recommended Pureed, nectar thick liquid for pleasure feeds, will keep patient NPO -GI on consult, Dr. Muller Hx of right sided hemiplegia -03/03 US of right LE showed no DVT Hx of seizure -on Levetiracetam 500mg IVPB BID Hx hypertension -blood pressure of 136/97 -Lasix held due to D5 drip Hx of DM2 -HgbA1c 4.5 -ISS ACHS -fingersticks ACHS PPX with protonix and lovenox Patient was reviewed and discussed with attending physician, Dr. Holder <Sivan Holder - Last Filed: 03/06/18 18:44> Objective - Vital Signs/Intake and Output Vital Signs (last 24 hours): Temp Pulse Resp BP Pulse Ox 98.4 F 76 19 145/97 H 97 03/06/18 16:20 03/06/18 16:20 03/06/18 16:20 03/06/18 16:20 03/06/18 16:20 Intake and Output: 03/06/18 03/06/18 06:59 18:59 Intake Total 1000 Output Total 600 Balance -600 1000 - Medications Medications: Current Medications Dextrose (Dextrose 50% Inj) 0 ml IV STAT PRN; Protocol PRN Reason: Hypoglycemia Protocol Furosemide (Lasix) 20 mg IVP DAILY [facility] Last Admin: 03/05/18 09:05 Dose: 20 mg Dextrose (Dextrose 5% In Water 1000 Ml) 1,000 mls @ 0 mls/hr IV .Q0M PRN; Protocol; Per Protocol PRN Reason: Hypoglycemia Protocol Levetiracetam (Keppra 500mg Ivpb) 500 mg in 100 mls @ 400 mls/hr IVPB Q12 [facility] Last Admin: 03/06/18 10:33 Dose: 400 mls/hr Dextrose (Dextrose 5% In Water 1000 Ml) 1,000 mls @ 75 mls/hr IV .[id number] [facility] Last Admin: 03/05/18 23:03 Dose: Not Given Insulin Human Lispro (Humalog Low) 0 units SC ACHS [facility] PRN Reason: Protocol Last Admin: 03/06/18 17:00 Dose: Not Given Pantoprazole Sodium (Protonix Inj) 40 mg IVP DAILY [facility] Last Admin: 03/06/18 10:33 Dose: 40 mg - Labs Labs: 03/06/18 06:00 03/06/18 06:00 PT 13.7 SECONDS (9.4-12.5) H 03/02/18 23:17 INR 1.20 03/02/18 23:17 APTT 35.0 Seconds (25.1-36.5) 03/02/18 23:17 Attending/Attestation - Attestation I have personally seen and examined this patient.: Yes I have fully participated in the care of the patient.: Yes I have reviewed all pertinent clinical information, including history, physical exam and plan: Yes Notes (Text): 03/06/18 18:42 Attending note; Patient seen and examined with resident. Patient is a 63-year-old male with past medical history of CVA secondary to intracerebral hemorrhage with right-sided weakness and aphasia, right-sided hemiparesis, hypertension, type 2 diabetes, and status post G-tube placement that presented to the emergency room for dislodged G-tube. 1. Malfunctioning G-tube. GI evaluation appreciated. Patient for placement of PEG tube tomorrow. Continue to hold Eliquis. Continue IV fluids. 2. History of hemorrhagic stroke with right-sided hemiparesis. 3. History of seizures. Continue with Keppra. 4. Type 2 diabetes. Continue with insulin sliding scale. Continue to monitor Accu-Cheks. 5. Right lower extremity edema. Doppler negative for DVT. Possible discharge home after PEG tube placement. Will discuss with correctional counselor/case manager for discharge planning. Upon discharge the patient will follow up with PMD Dr. Mary.
--- NOTE | 2018-03-06 17:37 | US ---
PROCEDURE: Right lower extremity venous US HISTORY: Leg pain and swelling. Evaluate for DVT. PHYSICIAN(S): John Vale M.D. TECHNIQUE: Duplex sonography and color-flow Doppler with graded compression were used to evaluate the deep venous system of the right lower extremity. FINDINGS: The exam is very limited by body habitus and edema. The lower femoral veins and tibial veins are not adequately seen The visualized deep venous system of the right lower extremity is sonographically normal and compressible. Normal waveforms and augmentation are seen. There is no sonographic evidence for deep venous thrombosis in the visualized segments of the right lower extremity. IMPRESSION: 1. No sonographic evidence for deep venous thrombosis in the visualized segments of the right lower extremity.
[2018-03-07 06:34] LABS: BASO # 0.02 K/mm3 (0.0-2.0); BASO % 0.3 % (0.0-3.0); EOS # 0.2 (0.0-0.7); EOS % 3.3 % (1.5-5.0); GRAN # 4.19 (1.4-6.5); HEMOGLOBIN 13.7 g/dL (14.0-18.0); LYMPH # 1.4 (1.2-3.4); LYMPH % 21.6 % (22.0-35.0); MEAN CELL VOLUME 99.3 fl (80.0-105.0); MEAN CORPUSCULAR HEMOGLOBIN 33.1 pg (25.0-35.0); MEAN CORPUSCULAR HGB CONC 33.3 g/dl (31.0-37.0); MEAN PLATELET VOLUME 10.8 fl (7.0-11.0); MONO # 0.6 (0.1-0.6); MONO % 9.8 % (1.0-6.0); RBC 4.14 10^6/uL (3.5-6.1); RED CELL DISTRIBUTION WIDTH 13.2 % (11.5-14.5); WHITE BLOOD COUNT 6.4 10^3/ul (4.5-11.0)
[2018-03-07 06:46] LABS: INR 1.26; PROTHROMBIN TIME 14.6 SECONDS (9.4-12.5)
[2018-03-07 07:40] LABS: ALB/GLOB RATIO 0.9 (1.1-1.8); ALBUMIN 3.6 g/dL (3.0-4.8); ALT/SGPT 25 U/L (7-56); AST/SGOT 37 U/L (17-59); BLOOD UREA NITROGEN 20 mg/dL (7-21); GFR NON-AFRICAN AMERICAN > 60
[2018-03-07] MEDS ORDERED: ceFAZolin 1 gm in NS 1 GM/100 ML BAG IVPB ONE ×2 (08:00→14:00)
[2018-03-07] MEDS: Insulin Lispro (humaLOG) LOW Coverage SC SCH ×4 (08:36→21:35)
[2018-03-07] MEDS: levETIRAcetam 500mg IVPB 500 MG/100 ML BAG IVPB SCH ×2 (11:24→22:29)
[2018-03-07] MEDS ORDERED: ceFAZolin 1 gm in NS 1 GM/100 ML BAG IVPB STA (16:11)
[2018-03-07] MEDS ORDERED: Propofol 10 mg/ml Inj (20 ML) ONE (16:27)
[2018-03-07] MEDS ORDERED: Etomidate 20 mg/10ml Inj IV ONE (16:28)
--- NOTE | 2018-03-07 17:04 | CP.PCM.PN ---
<Nick Rico - Last Filed: 03/07/18 17:01> Subjective - Date & Time of Evaluation Date of Evaluation: 03/07/18 Time of Evaluation: 17:01 - Subjective Subjective: Nick Rico, PGY-1 Progress Note for Hospitalist Service Patient seen and examined this morning at bedside. No acute events overnight. No new complaints offered today. G tube placed today. Objective - Vital Signs/Intake and Output Vital Signs (last 24 hours): Temp Pulse Resp BP Pulse Ox 98.2 F 107 H 18 1232/84 H 97 03/07/18 14:49 03/07/18 14:49 03/07/18 14:49 03/07/18 14:49 03/07/18 16:18 Intake and Output: 03/07/18 03/07/18 06:59 18:59 Intake Total 900 Output Total 300 Balance 600 - Medications Medications: Current Medications Dextrose (Dextrose 50% Inj) 0 ml IV STAT PRN; Protocol PRN Reason: Hypoglycemia Protocol Furosemide (Lasix) 20 mg IVP DAILY [facility] Last Admin: 03/05/18 09:05 Dose: 20 mg Dextrose (Dextrose 5% In Water 1000 Ml) 1,000 mls @ 0 mls/hr IV .Q0M PRN; Protocol; Per Protocol PRN Reason: Hypoglycemia Protocol Levetiracetam (Keppra 500mg Ivpb) 500 mg in 100 mls @ 400 mls/hr IVPB Q12 [facility] Last Admin: 03/07/18 11:24 Dose: 400 mls/hr Dextrose (Dextrose 5% In Water 1000 Ml) 1,000 mls @ 75 mls/hr IV .[id number] [facility] Last Admin: 03/06/18 21:48 Dose: 75 mls/hr Cefazolin Sodium (Ancef 1gm In Ns) 1 gm in 100 mls @ 100 mls/hr IVPB STAT STA Stop: 03/07/18 17:10 Insulin Human Lispro (Humalog Low) 0 units SC ACHS [facility] PRN Reason: Protocol Last Admin: 03/07/18 08:36 Dose: Not Given Pantoprazole Sodium (Protonix Inj) 40 mg IVP DAILY [facility] Last Admin: 03/07/18 11:25 Dose: 40 mg - Labs Labs: 03/07/18 06:00 03/07/18 06:00 PT 14.6 SECONDS (9.4-12.5) H 03/07/18 06:00 INR 1.26 03/07/18 06:00 APTT 35.0 Seconds (25.1-36.5) 03/02/18 23:17 - Constitutional Appears: No Acute Distress - Head Exam Head Exam: ATRAUMATIC, NORMAL INSPECTION - Eye Exam Eye Exam: EOMI Pupil Exam: PERRL - Respiratory Exam Respiratory Exam: Clear to Ausculation Bilateral. absent: Respiratory Distress - Cardiovascular Exam Cardiovascular Exam: REGULAR RHYTHM, +S1, +S2 - GI/Abdominal Exam GI & Abdominal Exam: Normal Bowel Sounds. absent: Guarding, Rigid Additional comments: previous G tube scar in right upper abdomen - Extremities Exam Extremities Exam: Normal Inspection. absent: Calf Tenderness - Neurological Exam Neurological Exam: Alert, Awake Additional comments: patient has aphasia - Skin Skin Exam: Normal Color, Warm Assessment and Plan - Assessment and Plan (Free Text) Assessment: 63 yo male with a past medical history of hemorrhagic stroke, right-sided weakness with aphasia, hypertension, DM II, bed-bound and seizure disorder who presents after his G-tube was dislodged. Eliquis on hold. G tube placed today. Possible discharge tomorrow. Plan: G tube placement -G tube placed today by GI, Dr. Muller -receives glucerna at home normally -not on eliquis at this time -speech pathology recommended Pureed, nectar thick liquid for pleasure feeds, will keep patient NPO -on cefazolin day 1 -GI on consult, Dr. Muller Hx of right sided hemiplegia -03/03 US of right LE showed no DVT Hx of seizure -on Levetiracetam 500mg IVPB BID Hx hypertension -blood pressure of 134/89 -Lasix held due to D5 drip Hx of DM2 -HgbA1c 4.5 -ISS ACHS -fingersticks ACHS PPX with protonix and lovenox Patient was reviewed and discussed with attending physician, Dr. Holder <Sivan Holder - Last Filed: 03/08/18 17:13> Objective - Vital Signs/Intake and Output Vital Signs (last 24 hours): Temp Pulse Resp BP Pulse Ox 97.1 F L 88 19 106/77 97 03/08/18 16:32 03/08/18 16:32 03/08/18 16:32 03/08/18 16:32 03/08/18 16:32 - Medications Medications: Current Medications Dextrose (Dextrose 50% Inj) 0 ml IV STAT PRN; Protocol PRN Reason: Hypoglycemia Protocol Furosemide (Lasix) 20 mg IVP DAILY [facility] Last Admin: 03/05/18 09:05 Dose: 20 mg Dextrose (Dextrose 5% In Water 1000 Ml) 1,000 mls @ 0 mls/hr IV .Q0M PRN; Protocol; Per Protocol PRN Reason: Hypoglycemia Protocol Levetiracetam (Keppra 500mg Ivpb) 500 mg in 100 mls @ 400 mls/hr IVPB Q12 [facility] Last Admin: 03/08/18 09:00 Dose: 400 mls/hr Dextrose/Sodium Chloride (Dextrose 5%/0.45% Ns 1000 Ml) 1,000 mls @ 100 mls/hr IV .Q10H [facility] Last Admin: 03/08/18 09:03 Dose: 100 mls/hr Insulin Human Lispro (Humalog Low) 0 units SC ACHS [facility] PRN Reason: Protocol Last Admin: 03/08/18 12:02 Dose: Not Given Neomycin/Polymyxin/Bacitracin (Neosporin Triple Antibiotic Oint) 1 gm TOP DAILY [facility] Last Admin: 03/08/18 09:01 Dose: 1 applic Pantoprazole Sodium (Protonix Inj) 40 mg IVP DAILY [facility] Last Admin: 03/08/18 09:00 Dose: 40 mg - Labs Labs: 03/08/18 06:00 03/08/18 07:20 PT 14.6 SECONDS (9.4-12.5) H 03/07/18 06:00 INR 1.26 03/07/18 06:00 APTT 35.0 Seconds (25.1-36.5) 03/02/18 23:17 Attending/Attestation - Attestation I have personally seen and examined this patient.: Yes I have fully participated in the care of the patient.: Yes I have reviewed all pertinent clinical information, including history, physical exam and plan: Yes Notes (Text): 03/08/18 17:12 Attending note; Patient seen and examined with resident. Going for PEG tube placement today. Patient is a 63-year-old male with past medical history of CVA secondary to intracerebral hemorrhage with right-sided weakness and aphasia, right-sided hemiparesis, hypertension, type 2 diabetes, and status post G-tube placement that presented to the emergency room for dislodged G-tube. 1. Malfunctioning G-tube. GI evaluation appreciated. plan for PEG tube placement today. Continue to hold Eliquis. Continue IV fluids. 2. History of stroke with right-sided hemiparesis. 3. History of seizures. Continue with Keppra. 4. Type 2 diabetes. Continue with insulin sliding scale. Continue to monitor Accu-Cheks. 5. Right lower extremity edema. Doppler negative for DVT. possible discharge tomorrow. Will discuss with [employer]er [employer] for discharge planning. Upon discharge the patient will follow up with PMD Dr. Mary.
[2018-03-07] MEDS ORDERED: Sodium Chloride 0.9% 1,000 ML IV SCH (17:15)
[2018-03-07] MEDS ORDERED: Dextrose 5%/0.45% NS 1,000 ML IV SCH (19:45)
[2018-03-07] MEDS: Dextrose 5%/0.45% NS 1,000 ML IV SCH (22:28)
[2018-03-08 06:30] LABS: BASO # 0.01 K/mm3 (0.0-2.0); BASO % 0.1 % (0.0-3.0); EOS % 0.2 % (1.5-5.0); GRAN # 8.17 (1.4-6.5); GRAN % 83.6 % (50.0-68.0); HEMOGLOBIN 12.3 g/dL (14.0-18.0); LYMPH # 0.9 (1.2-3.4); LYMPH % 9.1 % (22.0-35.0); MEAN CELL VOLUME 99.5 fl (80.0-105.0); MEAN CORPUSCULAR HEMOGLOBIN 33.1 pg (25.0-35.0); MEAN CORPUSCULAR HGB CONC 33.2 g/dl (31.0-37.0); MEAN PLATELET VOLUME 11.2 fl (7.0-11.0); MONO # 0.7 (0.1-0.6); RBC 3.72 10^6/uL (3.5-6.1); RED CELL DISTRIBUTION WIDTH 13.1 % (11.5-14.5); WHITE BLOOD COUNT 9.8 10^3/ul (4.5-11.0)
--- NOTE | 2018-03-08 07:14 | CP.PCM.PN ---
<Marino Vang - Last Filed: 03/08/18 07:11> Subjective - Date & Time of Evaluation Date of Evaluation: 03/08/18 Time of Evaluation: 07:11 - Subjective Subjective: GI Fellow PGY4 Patient is doing well this AM. No acute overnight events. Tolerating free water flushes. Unable to perform ROS due to chronic ams. Objective - Vital Signs/Intake and Output Vital Signs (last 24 hours): Temp Pulse Resp BP Pulse Ox 98.8 F 90 21 142/93 H 99 03/07/18 18:41 03/07/18 18:41 03/07/18 18:41 03/07/18 18:41 03/07/18 18:41 - Medications Medications: Current Medications Dextrose (Dextrose 50% Inj) 0 ml IV STAT PRN; Protocol PRN Reason: Hypoglycemia Protocol Furosemide (Lasix) 20 mg IVP DAILY [facility] Last Admin: 03/05/18 09:05 Dose: 20 mg Dextrose (Dextrose 5% In Water 1000 Ml) 1,000 mls @ 0 mls/hr IV .Q0M PRN; Protocol; Per Protocol PRN Reason: Hypoglycemia Protocol Levetiracetam (Keppra 500mg Ivpb) 500 mg in 100 mls @ 400 mls/hr IVPB Q12 [facility] Last Admin: 03/07/18 22:29 Dose: 400 mls/hr Dextrose/Sodium Chloride (Dextrose 5%/0.45% Ns 1000 Ml) 1,000 mls @ 100 mls/hr IV .Q10H [facility] Last Admin: 03/07/18 22:28 Dose: 100 mls/hr Insulin Human Lispro (Humalog Low) 0 units SC ACHS [facility] PRN Reason: Protocol Last Admin: 03/07/18 21:35 Dose: Not Given Neomycin/Polymyxin/Bacitracin (Neosporin Triple Antibiotic Oint) 1 gm TOP DAILY [facility] Pantoprazole Sodium (Protonix Inj) 40 mg IVP DAILY [facility] Last Admin: 03/07/18 11:25 Dose: 40 mg - Labs Labs: 03/08/18 06:00 03/07/18 06:00 PT 14.6 SECONDS (9.4-12.5) H 03/07/18 06:00 INR 1.26 03/07/18 06:00 APTT 35.0 Seconds (25.1-36.5) 08/30/18 23:17 - Constitutional Appears: Well, Non-toxic, No Acute Distress - Head Exam Head Exam: NORMAL INSPECTION - Eye Exam Eye Exam: Normal appearance - ENT Exam ENT Exam: Mucous Membranes Moist - Respiratory Exam Respiratory Exam: Clear to Ausculation Bilateral, NORMAL BREATHING PATTERN. absent: Stridor - Cardiovascular Exam Cardiovascular Exam: REGULAR RHYTHM - GI/Abdominal Exam GI & Abdominal Exam: Soft, Normal Bowel Sounds. absent: Tenderness Additional comments: PEG tube in place without erythema, discharge. Bumper at 2.5cm. I loosened bumper to 3cm. Abdominal binder in place. - Extremities Exam Extremities Exam: Normal Inspection - Neurological Exam Neurological Exam: Awake - Psychiatric Exam Psychiatric exam: Normal Affect, Normal Mood - Skin Skin Exam: Dry, Intact Assessment and Plan - Assessment and Plan (Free Text) Assessment: Patient is a 63 yo male with PMH of CVA 2/2 intracerbral hemorrhage with right sided weakness & aphasia, paralysis, HTN, DM, who presents to [facility] for dislodged PEG tube. 1. PEG Dislodged 2. PEG site stenosed 3. Hx of CVA and Dysphagia Plan: -s/p PEG placement 03/07/18 -Restart Eliquis tomorrow -FWF 30cc q8h to keep PEG clean -Ok to give meds now -Start tube feeds tonight, 03/08/18 -SCD for DVT ppx -Maintain abdominal binder to prevent dislodgment of PEG <Donald Drew - Last Filed: 03/08/18 10:46> Objective - Vital Signs/Intake and Output Vital Signs (last 24 hours): Temp Pulse Resp BP Pulse Ox 97.7 F 106 H 20 110/81 97 03/08/18 07:34 03/08/18 07:34 03/08/18 07:34 03/08/18 07:34 03/08/18 07:34 - Medications Medications: Current Medications Dextrose (Dextrose 50% Inj) 0 ml IV STAT PRN; Protocol PRN Reason: Hypoglycemia Protocol Furosemide (Lasix) 20 mg IVP DAILY [facility] Last Admin: 03/05/18 09:05 Dose: 20 mg Dextrose (Dextrose 5% In Water 1000 Ml) 1,000 mls @ 0 mls/hr IV .Q0M PRN; Protocol; Per Protocol PRN Reason: Hypoglycemia Protocol Levetiracetam (Keppra 500mg Ivpb) 500 mg in 100 mls @ 400 mls/hr IVPB Q12 [facility] Last Admin: 03/08/18 09:00 Dose: 400 mls/hr Dextrose/Sodium Chloride (Dextrose 5%/0.45% Ns 1000 Ml) 1,000 mls @ 100 mls/hr IV .Q10H [facility] Last Admin: 03/08/18 09:03 Dose: 100 mls/hr Insulin Human Lispro (Humalog Low) 0 units SC ACHS [facility] PRN Reason: Protocol Last Admin: 03/08/18 08:02 Dose: Not Given Neomycin/Polymyxin/Bacitracin (Neosporin Triple Antibiotic Oint) 1 gm TOP DAILY [facility] Last Admin: 03/08/18 09:01 Dose: 1 applic Pantoprazole Sodium (Protonix Inj) 40 mg IVP DAILY [facility] Last Admin: 03/08/18 09:00 Dose: 40 mg - Labs Labs: 03/08/18 06:00 03/08/18 07:20 PT 14.6 SECONDS (9.4-12.5) H 03/07/18 06:00 INR 1.26 03/07/18 06:00 APTT 35.0 Seconds (25.1-36.5) 03/02/18 23:17 Attending/Attestation - Attestation I have personally seen and examined this patient.: Yes I have fully participated in the care of the patient.: Yes I have reviewed all pertinent clinical information, including history, physical exam and plan: Yes Notes (Text): 03/08/18 10:38 This is a 63 yr old male with PMH of CVA 2/2 intracerbral hemorrhage with right sided weakness & aphasia, paralysis, HTN, DM, who presents to [facility] for dislodged PEG tube s/p endoscopic PEG placement. No induration or erythema. Restart Eliquis tomorrow. Aspiration precautions. Local PEG care. Will sign off. Thank you for letting us participate in the care of your patient
[2018-03-08 07:34] VITALS: O2SAT 97
[2018-03-08] MEDS: Insulin Lispro (humaLOG) LOW Coverage SC SCH ×3 (08:02→16:58)
[2018-03-08 08:03] LABS: ALB/GLOB RATIO 0.9 (1.1-1.8); ALBUMIN 3.4 g/dL (3.0-4.8); ALT/SGPT 27 U/L (7-56); AST/SGOT 32 U/L (17-59); BLOOD UREA NITROGEN 19 mg/dL (7-21); CALCIUM 8.7 mg/dL (8.4-10.5); GFR NON-AFRICAN AMERICAN 56
[2018-03-08] MEDS: levETIRAcetam 500mg IVPB 500 MG/100 ML BAG IVPB SCH (09:00)
[2018-03-08] MEDS: Dextrose 5%/0.45% NS 1,000 ML IV SCH (09:03)
[2018-03-08] MEDS ORDERED: Bacitracin/Neomycin/Polymyxin Oint(30GM) TOP SCH (10:00)
--- NOTE | 2018-03-08 14:54 | CP.PCM.DIS ---
<Nick Rico - Last Filed: 03/08/18 16:40> Provider - Provider Date of Admission: 03/03/18 11:20 Attending physician: Dr. Holder Primary care physician: Dr. Germain Consults: GI doctor Time Spent in preparation of Discharge (in minutes): 35 Hospital Course - Lab Results Lab Results: Most Recent Lab Values WBC 9.8 10^3/ul (4.5-11.0) D 03/08/18 06:00 RBC 3.72 10^6/uL (3.5-6.1) 03/08/18 06:00 Hgb 12.3 g/dL (14.0-18.0) L 03/08/18 06:00 Hct 37.0 % (42.0-52.0) L 03/08/18 06:00 MCV 99.5 fl (80.0-105.0) 03/08/18 06:00 MCH 33.1 pg (25.0-35.0) 03/08/18 06:00 MCHC 33.2 g/dl (31.0-37.0) 03/08/18 06:00 RDW 13.1 % (11.5-14.5) 03/08/18 06:00 Plt Count 200 10^3/uL (120.0-450.0) 03/08/18 06:00 MPV 11.2 fl (7.0-11.0) H 03/08/18 06:00 Gran % 83.6 % (50.0-68.0) H 03/08/18 06:00 Lymph % (Auto) 9.1 % (22.0-35.0) L 03/08/18 06:00 [place] % (Auto) 7.0 % (1.0-6.0) H 03/08/18 06:00 Eos % (Auto) 0.2 % (1.5-5.0) L 03/08/18 06:00 Baso % (Auto) 0.1 % (0.0-3.0) 03/08/18 06:00 Gran # 8.17 (1.4-6.5) H 03/08/18 06:00 Lymph # (Auto) 0.9 (1.2-3.4) L 03/08/18 06:00 [place] # (Auto) 0.7 (0.1-0.6) H 03/08/18 06:00 Eos # (Auto) 0.0 (0.0-0.7) 03/08/18 06:00 Baso # (Auto) 0.01 K/mm3 (0.0-2.0) 03/08/18 06:00 PT 14.6 SECONDS (9.4-12.5) H 03/07/18 06:00 INR 1.26 03/07/18 06:00 APTT 35.0 Seconds (25.1-36.5) 03/02/18 23:17 Sodium 138 mmol/L (132-148) 03/08/18 07:20 Potassium 3.8 mmol/L (3.6-5.0) 03/08/18 07:20 Chloride 105 mmol/L (98-107) 03/08/18 07:20 Carbon Dioxide 26 mmol/L (21-33) 03/08/18 07:20 Anion Gap 11 (10-20) 03/08/18 07:20 BUN 19 mg/dL (7-21) 03/08/18 07:20 Creatinine 1.3 mg/dl (0.8-1.5) 03/08/18 07:20 Est GFR ( Amer) > 60 03/08/18 07:20 Est GFR (Non-Af Amer) 56 03/08/18 07:20 POC Glucose (mg/dL) 135 mg/dL (65-110) H 03/08/18 11:42 Random Glucose 139 mg/dL (70-110) H 03/08/18 07:20 Hemoglobin A1c 4.6 % (4.2-6.5) 03/02/18 23:17 Calcium 8.7 mg/dL (8.4-10.5) 03/08/18 07:20 Phosphorus 2.6 mg/dL (2.5-4.5) 03/08/18 07:20 Magnesium 2.0 mg/dL (1.7-2.2) 03/08/18 07:20 Total Bilirubin 1.0 mg/dL (0.2-1.3) 03/08/18 07:20 AST 32 U/L (17-59) 03/08/18 07:20 ALT 27 U/L (7-56) 03/08/18 07:20 Alkaline Phosphatase 48 U/L (38-126) 03/08/18 07:20 Total Protein 7.1 g/dL (5.8-8.3) 03/08/18 07:20 Albumin 3.4 g/dL (3.0-4.8) 03/08/18 07:20 Globulin 3.7 gm/dL 03/08/18 07:20 Albumin/Globulin Ratio 0.9 (1.1-1.8) L 03/08/18 07:20 - Hospital Course Hospital Course: 63M presented to the ED on 03/02/18 accompanied by EMS services due to a dislodged g-tube that was noticed by family members while cleaning it earlier that day. Patient was a poor historian due to aphasia secondary to CVA. Patient was not in any acute distress at the time of admission. Patient was started on fluids. Hospital Course: Patent was admitted to the Hospitalist and continued on IV fluids. GI was consulted for PEG reinsertion. Patient was placed on NPO diet and Eliquis was held in preparation for procedure. Right lower extremity US was ordered due to complaints of lower leg pain with results showing no evidence of DVT. GI recommended speech and swallow evaluation for possibility of pleasure feeds. Patient was recommended Pureet pleasure feeds. Patient was started on prophylactic dose of Lovenox. PEG reinsertion was completed on 03/08 with no complications. Upon Discharge: Patient was discharged with home exercise recommendations to maintain strength and mobility of extremities and continue home feeds. Discharge Exam - Head Exam Head Exam: NORMAL INSPECTION - Eye Exam Eye Exam: EOMI Pupil Exam: PERRL - Respiratory Exam Respiratory Exam: Clear to PA & Lateral. absent: Respiratory Distress - Cardiovascular Exam Cardiovascular Exam: REGULAR RHYTHM, +S1, +S2 - GI/Abdominal Exam GI & Abdominal Exam: Normal Bowel Sounds. absent: Firm, Guarding Additional comments: G tube present with no gross bleeding or leakage - Extremities Exam Extremities exam: normal inspection, pedal pulses present - Neurological Exam Neurological exam: Alert Additional comments: aphasia - Skin Skin Exam: Normal Color, Warm Discharge Plan - Follow Up Plan Condition: STABLE Disposition: HOME/ ROUTINE Additional Instructions: Please follow up with your primary care doctor in 3-5 days of discharge. Please follow up with your childhood development teacher doctor in 3-5 days of discharge. Please resume home feedings. Please return to the ED if any new or worsening symptoms. <Sivan Holder - Last Filed: 03/08/18 17:15> Provider - Provider Date of Admission: 03/03/18 11:20 Attending physician: Sivan Holder MD Hospital Course - Lab Results Lab Results: Most Recent Lab Values WBC 9.8 10^3/ul (4.5-11.0) D 03/08/18 06:00 RBC 3.72 10^6/uL (3.5-6.1) 03/08/18 06:00 Hgb 12.3 g/dL (14.0-18.0) L 03/08/18 06:00 Hct 37.0 % (42.0-52.0) L 03/08/18 06:00 MCV 99.5 fl (80.0-105.0) 03/08/18 06:00 MCH 33.1 pg (25.0-35.0) 03/08/18 06:00 MCHC 33.2 g/dl (31.0-37.0) 03/08/18 06:00 RDW 13.1 % (11.5-14.5) 03/08/18 06:00 Plt Count 200 10^3/uL (120.0-450.0) 03/08/18 06:00 MPV 11.2 fl (7.0-11.0) H 03/08/18 06:00 Gran % 83.6 % (50.0-68.0) H 03/08/18 06:00 Lymph % (Auto) 9.1 % (22.0-35.0) L 03/08/18 06:00 [place] % (Auto) 7.0 % (1.0-6.0) H 03/08/18 06:00 Eos % (Auto) 0.2 % (1.5-5.0) L 03/08/18 06:00 Baso % (Auto) 0.1 % (0.0-3.0) 03/08/18 06:00 Gran # 8.17 (1.4-6.5) H 03/08/18 06:00 Lymph # (Auto) 0.9 (1.2-3.4) L 03/08/18 06:00 [place] # (Auto) 0.7 (0.1-0.6) H 03/08/18 06:00 Eos # (Auto) 0.0 (0.0-0.7) 03/08/18 06:00 Baso # (Auto) 0.01 K/mm3 (0.0-2.0) 03/08/18 06:00 PT 14.6 SECONDS (9.4-12.5) H 03/07/18 06:00 INR 1.26 03/07/18 06:00 APTT 35.0 Seconds (25.1-36.5) 03/02/18 23:17 Sodium 138 mmol/L (132-148) 03/08/18 07:20 Potassium 3.8 mmol/L (3.6-5.0) 03/08/18 07:20 Chloride 105 mmol/L (98-107) 03/08/18 07:20 Carbon Dioxide 26 mmol/L (21-33) 03/08/18 07:20 Anion Gap 11 (10-20) 03/08/18 07:20 BUN 19 mg/dL (7-21) 03/08/18 07:20 Creatinine 1.3 mg/dl (0.8-1.5) 03/08/18 07:20 Est GFR ( Amer) > 60 03/08/18 07:20 Est GFR (Non-Af Amer) 56 03/08/18 07:20 POC Glucose (mg/dL) 133 mg/dL (65-110) H 03/08/18 16:41 Random Glucose 139 mg/dL (70-110) H 03/08/18 07:20 Hemoglobin A1c 4.6 % (4.2-6.5) 03/02/18 23:17 Calcium 8.7 mg/dL (8.4-10.5) 03/08/18 07:20 Phosphorus 2.6 mg/dL (2.5-4.5) 03/08/18 07:20 Magnesium 2.0 mg/dL (1.7-2.2) 03/08/18 07:20 Total Bilirubin 1.0 mg/dL (0.2-1.3) 03/08/18 07:20 AST 32 U/L (17-59) 03/08/18 07:20 ALT 27 U/L (7-56) 03/08/18 07:20 Alkaline Phosphatase 48 U/L (38-126) 03/08/18 07:20 Total Protein 7.1 g/dL (5.8-8.3) 03/08/18 07:20 Albumin 3.4 g/dL (3.0-4.8) 03/08/18 07:20 Globulin 3.7 gm/dL 03/08/18 07:20 Albumin/Globulin Ratio 0.9 (1.1-1.8) L 03/08/18 07:20 Attending/Attestation - Attestation I have personally seen and examined this patient.: Yes I have fully participated in the care of the patient.: Yes I have reviewed all pertinent clinical information, including history, physical exam and plan: Yes Notes (Text): 03/08/18 17:14 Attending note; Patient seen and examined with resident. s/p PEG tube placement yesterday. Patient is a 63-year-old male with past medical history of CVA secondary to intracerebral hemorrhage with right-sided weakness and aphasia, right-sided hemiparesis, hypertension, type 2 diabetes, and status post G-tube placement that presented to the emergency room for dislodged G-tube. 1. Malfunctioning G-tube. s/p PEG tube placement yesterday. Start feeding today. start Eliquis tomorrow. 2. History of stroke with right-sided hemiparesis. 3. History of seizures. Continue with Keppra. 4. Type 2 diabetes. Continue with insulin sliding scale. Continue to monitor Accu-Cheks. 5. Right lower extremity edema. Doppler negative for DVT. discharge home today. Upon discharge the patient will follow up with PMD Dr. Mary.
[2018-03-08 16:32] VITALS: BP 106/77; PULSE 88; RESP 19; TEMP 97.1
== END 2018-03-08 22:59 | disposition home or self-care (01) | DRG 394 ==
LOC: ED 21:44 → ERH 23:47 → 3RNO 03-03 02:10 → OBSVTOIN 03-03 11:20
PROVIDERS: ADMIT Internal Medicine; ATTEND Internal Medicine
PROC: 0DH63UZ Insertion of Feeding Device into Stomach, Percutaneous Approach (ICD-10-PCS; principal; 2018-03-07 12:45)
DX: K94.23 Gastrostomy malfunction (principal); I69.251 Hemiplegia and hemiparesis following other nontraumatic intracranial hemorrhage affecting right dominant side; E11.51 Type 2 diabetes mellitus with diabetic peripheral angiopathy without gangrene; I10 Essential (primary) hypertension; G40.909 Epilepsy, unspecified, not intractable, without status epilepticus; K29.70 Gastritis, unspecified, without bleeding; R13.10 Dysphagia, unspecified; I69.291 Dysphagia following other nontraumatic intracranial hemorrhage; I69.220 Aphasia following other nontraumatic intracranial hemorrhage; Z79.84 Long term (current) use of oral hypoglycemic drugs; Z74.01 Bed confinement status; Z86.718 Personal history of other venous thrombosis and embolism; Z79.01 Long term (current) use of anticoagulants; Z87.01 Personal history of pneumonia (recurrent); Z87.442 Personal history of urinary calculi

== ENCOUNTER 2018-03-27 12:13 | Observation (INO) | payer MEDICARE ==
[2018-03-27 12:21] VITALS: RESP 18
[2018-03-27] MEDS ORDERED: Iohexol 240 (50 ml) ONE ×3 (14:03→14:35)
--- NOTE | 2018-03-27 14:47 | RAD ---
Date of service: 03/27/2018 HISTORY: w/ gastrograffin for sullivan insertion via PEG site COMPARISON: Comparison made with prior study dated 04/14/2017 FINDINGS: BOWEL: In situ peg tube with opacification of the PEG tube balloon. Subsequently AP views demonstrate oral contrast material opacifying the gastric lumen and proximal small bowel. BONES: Normal. OTHER FINDINGS: None. IMPRESSION: In situ PEG tube. There is opacification of the lumen of the stomach and proximal small bowel. No evidence of contrast extravasation.
[2018-03-27 15:27] LABS: BASO # 0.04 K/mm3 (0.0-2.0); BASO % 0.5 % (0.0-3.0); EOS # 0.2 (0.0-0.7); EOS % 2.2 % (1.5-5.0); GRAN # 5.01 (1.4-6.5); GRAN % 68.5 % (50.0-68.0); HEMOGLOBIN 13.6 g/dL (14.0-18.0); LYMPH # 1.6 (1.2-3.4); LYMPH % 21.7 % (22.0-35.0); MEAN CELL VOLUME 101.7 fl (80.0-105.0); MEAN CORPUSCULAR HEMOGLOBIN 33.7 pg (25.0-35.0); MEAN CORPUSCULAR HGB CONC 33.2 g/dl (31.0-37.0); MEAN PLATELET VOLUME 11.4 fl (7.0-11.0); MONO # 0.5 (0.1-0.6); MONO % 7.1 % (1.0-6.0); RBC 4.03 10^6/uL (3.5-6.1); RED CELL DISTRIBUTION WIDTH 13.5 % (11.5-14.5); WHITE BLOOD COUNT 7.3 10^3/ul (4.5-11.0)
--- NOTE | 2018-03-27 15:50 | ED PDOC ---
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 The peg tube was placed approximately 3 weeks ago. Patient's family denies any fever or vomiting. HPI limited due to patient's aphasia. Symptom Onset: Sudden Symptom Course: Unchanged Activities at Onset: Other (Family discharged the PEG tube) Context: Home Past Medical History - Provider Review Nursing Documentation Reviewed: Yes - Infectious Disease Hx of Infectious Diseases: None - Cardiac Hx Cardiac Disorders: Yes Hx Congestive Heart Failure: No Hx Hypertension: Yes Hx Peripheral Edema: Yes (RIGHT FOOT) Hx Peripheral Vascular Disease: Yes (DVT) - Pulmonary Hx Respiratory Disorders: Yes Hx Chronic Obstructive Pulmonary Disease (COPD): No Hx Pneumonia: Yes Hx Sleep Apnea: No - Neurological Hx Neurological Disorder: Yes HX Cerebrovascular Accident: Yes (X 2 R sided weakness and aphasia) Hx Seizures: Yes (LAST ONE 3 YEARS AGO) Other/Comment: Right side Hemiplagia , Aphasia - HEENT Hx HEENT Disorder: No - Renal Hx Renal Disorder: No Hx Kidney Stones: Yes Hx Renal Failure: No - Endocrine/Metabolic Hx Endocrine Disorders: Yes Hx Diabetes Mellitus Type 1: No Hx Diabetes Mellitus Type 2: Yes Hx Hypothyroidism: No - Hematological/Oncological Hx Blood Transfusions: Yes Hx Blood Transfusion Reaction: (UNK) - Integumentary Hx Dermatological Disorder: No - Musculoskeletal/Rheumatological Hx Musculoskeletal Disorders: Yes Hx Arthritis: No Hx Falls: Yes (past) Hx Fractures: No Hx Unsteady Gait: Yes (CANNOT WALK) - Gastrointestinal Hx Gastrointestinal Disorders: Yes Hx Gall Bladder Disease: Yes (gallstones) Hx Gastroesophageal Reflux: No Other/Comment: ercp Billary stent - Genitourinary/Gynecological Hx Genitourinary Disorders: Yes Hx Incontinence: Yes - Psychiatric Hx Psychophysiologic Disorder: No Hx Substance Use: No - Surgical History Hx Cholecystectomy: Yes Other/Comment: TRACHEOSTOMY - Anesthesia Hx Anesthesia: Yes Hx Anesthesia Reactions: No Hx Malignant Hyperthermia: No Family/Social History - Physician Review Nursing Documentation Reviewed: Yes Family/Social History: No Known Family HX Smoking Status: Never Smoked Hx Alcohol Use: No Hx Substance Use: No Allergies/Home Meds Allergies/Adverse Reactions: Allergies No Known Allergies Allergy (Verified 03/02/18 22:39) Home Medications: Home Meds Medication Instructions Recorded Confirmed Levetiracetam 500 mg PO BID 05/29/16 03/02/18 Apixaban [Eliquis] 2.5 mg PO BID 09/26/17 03/02/18 Folic Acid 1 mg PO DAILY 09/26/17 03/02/18 MetFORMIN ER [Glucophage XR] 500 mg PO BID 09/26/17 03/02/18 Review of Systems - Physician Review All systems were reviewed & negative as marked: Yes (ROS limited due to aphasia. ) - Review of Systems Constitutional: Normal. absent: Fevers Gastrointestinal: Normal. absent: Vomiting Physical Exam Vital Signs Reviewed: Yes Vital Signs Temp Pulse Resp BP Pulse Ox 03/27/18 18:17 68 18 121/67 97 03/27/18 16:27 71 18 125/69 97 03/27/18 15:31 75 18 128/73 96 03/27/18 14:29 78 18 131/74 96 03/27/18 12:21 97.9 F 82 18 133/84 96 Temperature: Afebrile Blood Pressure: Normal Pulse: Regular Respiratory Rate: Normal Appearance: Positive for: Well-Appearing, Non-Toxic Mental Status: Positive for: other (Patient has aphasia) - Systems Exam Head: Present: Atraumatic, Normocephalic Pupils: Present: PERRL Extroacular Muscles: Present: EOMI Conjunctiva: Present: Normal Mouth: Present: Moist Mucous Membranes Neck: Present: Normal Range of Motion Respiratory/Chest: Present: Clear to Auscultation, Good Air Exchange. No: Respiratory Distress, Accessory Muscle Use Cardiovascular: Present: Regular Rate and Rhythm, Normal S1, S2. No: Murmurs Abdomen: Present: Other (Abdomen has a peg tube opening. No active bleeding/ discharge from area. ). No: Tenderness, Distention, Peritoneal Signs Back: Present: Normal Inspection Upper Extremity: Present: Normal Inspection. No: Cyanosis, Edema Lower Extremity: Present: Normal Inspection. No: Edema Neurological: Present: GCS=15, CN II-XII Intact, Speech Normal Skin: Present: Warm, Dry, Normal Color. No: Rashes Psychiatric: Present: Alert, Oriented x 3, Normal Insight, Normal Concentration Medical Decision Making ED Course and Treatment: 03/27/18 13:40 Impression: 63 year old male brought into the Emergency department after family discharged the peg tube. Plan: -- EKG -- Labs -- X-Ray of chest -- X-Ray of abdomen (flat plate), 1 view -- Reassess and disposition Prior Visits: Notes and results from previous visits were reviewed. Patient was last seen in the emergency department on 03/02/18 bed bound with G-tube brought in by EMS for dislodged G-tube. Patient was hospitalized for gastrostomy tube dysfunction. Progress Notes: X-Ray of abdomen reviewed by radiologist, shows: Dictator : Mane Yu MD Report Date : 03/27/2018 14:45:35 FINDINGS: BOWEL: In situ peg tube with opacification of the PEG tube balloon. Subsequently AP views demonstrate oral contrast material opacifying the gastric lumen and proximal small bowel. BONES: Normal. OTHER FINDINGS: None. IMPRESSION: In situ PEG tube. There is opacification of the lumen of the stomach and proximal small bowel. No evidence of contrast extravasation. X-Ray of chest reviewed by radiologist, shows: Dictator : Jesus Lopez MD Report Date : 03/27/2018 15:56:21 FINDINGS: LUNGS: No active pulmonary disease. PLEURA: No significant pleural effusion identified, no pneumothorax apparent. CARDIOVASCULAR: No radiographic findings to suggest acute or significant cardiovascular disease. OSSEOUS STRUCTURES: No significant abnormalities. VISUALIZED UPPER ABDOMEN: Normal. OTHER FINDINGS: None. IMPRESSION: No active disease. No significant interval change compared to the prior examination(s). Limitations of the current examination: Low lung volumes, poor inspiratory effort a finding noted on the prior study. 03/27/18 Spoke to GI fellow who is aware of the case. - Lab Interpretations Lab Results: 03/27/18 15:19 03/27/18 16:21 Lab Results 03/27/18 16:21: Sodium 139, Potassium 5.1 H, Chloride 101, Carbon Dioxide 32, Anion Gap 11, BUN 36 H, Creatinine 1.1, Est GFR ( Amer) > 60, Est GFR ( Non-Af Amer) > 60, Random Glucose 74, Calcium 9.7, Magnesium 2.5 H, Total Bilirubin 0.7, AST 32, ALT 23, Alkaline Phosphatase 39, Total Protein 8.0, Albumin 3.9, Globulin 4.1, Albumin/Globulin Ratio 1.0 L 03/27/18 15:19: WBC 7.3 D, RBC 4.03, Hgb 13.6 L, Hct 41.0 L, MCV 101.7, MCH 33.7, MCHC 33.2, RDW 13.5, Plt Count 277, MPV 11.4 H, Gran % 68.5 H, Lymph % ( Auto) 21.7 L, [place] % (Auto) 7.1 H, Eos % (Auto) 2.2, Baso % (Auto) 0.5, Gran # 5.01, Lymph # (Auto) 1.6, [place] # (Auto) 0.5, Eos # (Auto) 0.2, Baso # (Auto) 0.04 - RAD Interpretation Radiology Orders: 03/27/18 13:47 ABDOMEN (FLAT PLATE) 1VIEW [RAD] Stat 03/27/18 15:21 CHEST PORTABLE [RAD] Stat News Production Assistant: Radiologist - Medication Orders Current Medication Orders: Apixaban (Eliquis) 2.5 mg PO BID AMOS PRN Reason: Protocol Folic Acid (Folic Acid) 1 mg PO DAILY AMOS Sodium Chloride (Sodium Chloride 0.9%) 1,000 mls @ 100 mls/hr IV .Q10H AMOS Last Admin: 03/27/18 16:05 Dose: 100 mls/hr eMAR Start Stop Document 03/27/18 16:05 EQ (Rec: 03/27/18 16:05 EQ [id number]) Intravenous Solution Start Date 03/27/18 Start Time 16:05 Piperacillin Sod/Tazobactam Sod (Zosyn 3.375 In Ns 100ml) 100 mls @ 200 mls/hr IVPB Q6 AMOS PRN Reason: Protocol Stop: 03/28/18 06:29 Levetiracetam (Keppra) 500 mg PO BID AMOS Discontinued Medications Piperacillin Sod/Tazobactam Sod (Zosyn 3.375 In Ns 100ml) 100 mls @ 200 mls/hr IVPB STAT STA PRN Reason: Protocol Stop: 03/27/18 17:36 Last Admin: 03/27/18 17:49 Dose: 200 mls/hr eMAR Start Stop Document 03/27/18 17:49 EQ (Rec: 03/27/18 17:49 EQ [id number]) Intravenous Solution Start Date 03/27/18 Start Time 17:49 - Procedure PROCEDURE NOTE (Text): 03/27/18 Mendosa tube put into PEG tube opening. - Scribe Statement The provider has reviewed the documentation as recorded by the Scribe Jaz Azevedo All medical record entries made by the Scribe were at my direction and personally dictated by me. I have reviewed the chart and agree that the record accurately reflects my personal performance of the history, physical exam, medical decision making, and the department course for this patient. I have also personally directed, reviewed, and agree with the discharge instructions and disposition. Disposition/Present on Arrival - Present on Arrival Any Indicators Present on Arrival: No History of DVT/PE: Yes History of Uncontrolled Diabetes: No Urinary Catheter: No History of Decub. Ulcer: No History Surgical Site Infection Following: None - Disposition Have Diagnosis and Disposition been Completed?: Yes Diagnosis: Gastrostomy tube dysfunction Disposition: HOSPITALIZED Disposition Time: 16:00 Condition: STABLE
--- NOTE | 2018-03-27 15:58 | RAD ---
Date of service: 03/27/2018 HISTORY: Infiltrate. COMPARISON: 04/17/2017 FINDINGS: LUNGS: No active pulmonary disease. PLEURA: No significant pleural effusion identified, no pneumothorax apparent. CARDIOVASCULAR: No radiographic findings to suggest acute or significant cardiovascular disease. OSSEOUS STRUCTURES: No significant abnormalities. VISUALIZED UPPER ABDOMEN: Normal. OTHER FINDINGS: None. IMPRESSION: No active disease. No significant interval change compared to the prior examination(s). Limitations of the current examination: Low lung volumes, poor inspiratory effort a finding noted on the prior study.
[2018-03-27] MEDS ORDERED: Sodium Chloride 0.9% 1,000 ML IV SCH (16:00)
[2018-03-27 16:41] LABS: ALBUMIN 3.9 g/dL (3.0-4.8); ALT/SGPT 23 U/L (7-56); AST/SGOT 32 U/L (17-59); BLOOD UREA NITROGEN 36 mg/dL (7-21); CALCIUM 9.7 mg/dL (8.4-10.5); GFR NON-AFRICAN AMERICAN > 60
[2018-03-27] MEDS ORDERED: Piperacillin/Tazobact 3.375 gm 100 ML IVPB STA (17:07)
[2018-03-27] MEDS ORDERED: Dextrose 5%/0.9% NS 1,000 ML IV SCH (21:45)
[2018-03-27] MEDS ORDERED: levETIRAcetam 500 MG in Sodium Chloride 0.9% 100 ML IV SCH (22:00)
[2018-03-27] MEDS ORDERED: Enoxaparin 60 mg Syringe SC SCH (22:00)
[2018-03-27] MEDS: levETIRAcetam 500mg IVPB 500 MG/100 ML BAG IV SCH (22:37)
[2018-03-27 23:24] VITALS: TEMP 97.5; BMI 36.6
[2018-03-27] MEDS ORDERED: Pneumococcal 23-Valent Vaccine IM ONE (23:25)
[2018-03-27] MEDS ORDERED: Influenza Vaccine 60 mcg/0.5 mL SYR (4YR UP) IM ONE (23:25)
[2018-03-28] MEDS: Piperacillin/Tazobact 3.375 gm 100 ML IVPB SCH ×2 (00:41→06:00)
--- NOTE | 2018-03-28 06:24 | CP.PCM.HP ---
Past Patient History - Infectious Disease Hx of Infectious Diseases: None - Past Medical History & Family History Past Medical History?: Yes - Past Social History Smoking Status: Unknown If Ever Smoked - CARDIAC Hx Cardiac Disorders: Yes Hx Cardia Arrhythmia: Yes (afib) Hx Congestive Heart Failure: No Hx Hypertension: Yes Hx Peripheral Edema: Yes (ble +1) Hx Peripheral Vascular Disease: Yes (DVT) - PULMONARY Hx Respiratory Disorders: Yes Hx Pneumonia: Yes Hx Sleep Apnea: No - NEUROLOGICAL Hx Neurological Disorder: Yes HX Cerebrovascular Accident: Yes (X 2 R sided weakness and aphasia) Hx Seizures: Yes (LAST ONE 3 YEARS AGO) Other/Comment: Right side Hemiplagia , Aphasia - HEENT Hx HEENT Problems: Yes Other/Comment: had peg tub put in 3 weeks ago, became dislodged today - RENAL Hx Chronic Kidney Disease: No Hx Kidney Stones: Yes Hx Renal Failure: No - ENDOCRINE/METABOLIC Hx Endocrine Disorders: Yes Hx Diabetes Mellitus Type 1: No Hx Diabetes Mellitus Type 2: Yes Hx Hypothyroidism: No - HEMATOLOGICAL/ONCOLOGICAL Hx Blood Disorders: Yes Hx Cancer: No - INTEGUMENTARY Hx Dermatological Problems: Yes Other/Comment: slight redness around peg insertion site, ble +1 edema and skin discolortions fading red rash to chest - MUSCULOSKELETAL/RHEUMATOLOGICAL Hx Falls: Yes (past) - GASTROINTESTINAL Hx Gastrointestinal Disorders: Yes (obese) Hx Gall Bladder Disease: Yes (gallstones) Hx Gastroesophageal Reflux: No Other/Comment: ercp Billary stent - GENITOURINARY/GYNECOLOGICAL Hx Genitourinary Disorders: Yes Hx Incontinence: Yes (urine and stool) - PSYCHIATRIC Hx Substance Use: No - SURGICAL HISTORY Hx Cholecystectomy: Yes Other/Comment: TRACHEOSTOMY - ANESTHESIA Hx Anesthesia: Yes Hx Anesthesia Reactions: No Hx Malignant Hyperthermia: No Meds Allergies/Adverse Reactions: Allergies Allergy/AdvReac Type Severity Reaction Status Date / Time No Known Allergies Allergy Verified 03/02/18 22:39 Results - Vital Signs Recent Vital Signs: Last Vital Signs Temp 97.5 F L 03/27/18 23:07 Pulse 65 03/27/18 23:07 Resp 18 03/27/18 23:07 BP 118/65 03/27/18 23:07 Pulse Ox 99 03/27/18 22:12 - Labs Result Diagrams: 03/27/18 15:19 03/27/18 16:21 Labs: Laboratory Results - last 24 hr 03/27/18 03/27/18 15:19 16:21 WBC 7.3 D RBC 4.03 Hgb 13.6 L Hct 41.0 L MCV 101.7 MCH 33.7 MCHC 33.2 RDW 13.5 Plt Count 277 MPV 11.4 H Gran % 68.5 H Lymph % (Auto) 21.7 L [place] % (Auto) 7.1 H Eos % (Auto) 2.2 Baso % (Auto) 0.5 Gran # 5.01 Lymph # (Auto) 1.6 [place] # (Auto) 0.5 Eos # (Auto) 0.2 Baso # (Auto) 0.04 Sodium 139 Potassium 5.1 H Chloride 101 Carbon Dioxide 32 Anion Gap 11 BUN 36 H Creatinine 1.1 Est GFR ( Amer) > 60 Est GFR (Non-Af Amer) > 60 Random Glucose 74 Calcium 9.7 Magnesium 2.5 H Total Bilirubin 0.7 AST 32 ALT 23 Alkaline Phosphatase 39 Total Protein 8.0 Albumin 3.9 Globulin 4.1 Albumin/Globulin Ratio 1.0 L
--- NOTE | 2018-03-28 06:40 | CP.PCM.CON ---
History of Present Illness - History of Present Illness History of Present Illness: GI Fellow PGY4, consult note. Nikkie Cotto is a 63M with history of multiple PEG tube dislodgements and replacements, afib, CVA, DVT on OAC, CBD stent presenting to ED with PEG tube dislodgement. Family at bedside, states the PEG tube fell out when he was being turned. States he did not pull it. This is the 3rd or 4th time something has happened to his PEG tube in the last 2 ears. He has also swallowed a bottle cap that needed to be removed endoscopically. The current PEG tube had just been placed 3 weeks earlier. Apparently, the dislodgement occurred just an hour prior to arrival to the ED. ED physician was able to place Mendosa successfully as seen by patrice jeter with gastrograffin. PMHx - as above. PSHx - as above FMHx - unremarkable SocHx - lives with family. He has aphasia due to previous CVA. Completely dependent on family. 12pt ROS unable to obtain due to chronic mental status. Past Patient History - Infectious Disease Hx of Infectious Diseases: None - Past Medical History & Family History Past Medical History?: Yes - Past Social History Smoking Status: Unknown If Ever Smoked - CARDIAC Hx Cardiac Disorders: Yes Hx Cardia Arrhythmia: Yes (afib) Hx Congestive Heart Failure: No Hx Hypertension: Yes Hx Peripheral Edema: Yes (ble +1) Hx Peripheral Vascular Disease: Yes (DVT) - PULMONARY Hx Respiratory Disorders: Yes Hx Pneumonia: Yes Hx Sleep Apnea: No - NEUROLOGICAL Hx Neurological Disorder: Yes HX Cerebrovascular Accident: Yes (X 2 R sided weakness and aphasia) Hx Seizures: Yes (LAST ONE 3 YEARS AGO) Other/Comment: Right side Hemiplagia , Aphasia - HEENT Hx HEENT Problems: Yes Other/Comment: had peg tub put in 3 weeks ago, became dislodged today - RENAL Hx Chronic Kidney Disease: No Hx Kidney Stones: Yes Hx Renal Failure: No - ENDOCRINE/METABOLIC Hx Endocrine Disorders: Yes Hx Diabetes Mellitus Type 1: No Hx Diabetes Mellitus Type 2: Yes Hx Hypothyroidism: No - HEMATOLOGICAL/ONCOLOGICAL Hx Blood Disorders: Yes Hx Cancer: No - INTEGUMENTARY Hx Dermatological Problems: Yes Other/Comment: slight redness around peg insertion site, ble +1 edema and skin discolortions fading red rash to chest - MUSCULOSKELETAL/RHEUMATOLOGICAL Hx Falls: Yes (past) - GASTROINTESTINAL Hx Gastrointestinal Disorders: Yes (obese) Hx Gall Bladder Disease: Yes (gallstones) Hx Gastroesophageal Reflux: No Other/Comment: ercp Billary stent - GENITOURINARY/GYNECOLOGICAL Hx Genitourinary Disorders: Yes Hx Incontinence: Yes (urine and stool) - PSYCHIATRIC Hx Substance Use: No - SURGICAL HISTORY Hx Cholecystectomy: Yes Other/Comment: TRACHEOSTOMY - ANESTHESIA Hx Anesthesia: Yes Hx Anesthesia Reactions: No Hx Malignant Hyperthermia: No Meds Allergies/Adverse Reactions: Allergies Allergy/AdvReac Type Severity Reaction Status Date / Time No Known Allergies Allergy Verified 03/02/18 22:39 - Medications Medications: Current Medications Folic Acid (Folic Acid) 1 mg PO DAILY ON LICENSE OF [facility] Dextrose/Sodium Chloride (Dextrose 5%/0.9% Ns 1000 Ml) 1,000 mls @ 50 mls/hr IV .Q20H ON LICENSE OF [facility] Stop: 03/28/18 17:44 Last Admin: 03/27/18 22:40 Dose: 50 mls/hr Levetiracetam (Keppra 500mg Ivpb) 500 mg in 100 mls @ 460 mls/hr IV Q12 AMOS Last Admin: 03/27/18 22:37 Dose: 460 mls/hr Physical Exam - Constitutional Appears: Well, Non-toxic, No Acute Distress - Head Exam Head Exam: NORMAL INSPECTION - Eye Exam Eye Exam: EOMI, Normal appearance - ENT Exam ENT Exam: Mucous Membranes Moist - Respiratory Exam Respiratory Exam: Clear to Auscultation Bilateral, NORMAL BREATHING PATTERN - Cardiovascular Exam Cardiovascular Exam: Irregular Rhythm, +S1, +S2 - GI/Abdominal Exam GI & Abdominal Exam: Normal Bowel Sounds, Soft. absent: Organomegaly, Tenderness Additional comments: PEG tube site replaced with Mendosa. Mild amount of erythema and induration around surgical site. No purulent discharge or bleeding. No abdominal pain with deep palpation. - Extremities Exam Extremities exam: Positive for: normal inspection - Neurological Exam Neurological exam: Alert, Altered - Psychiatric Exam Psychiatric exam: Flat Affect, Normal Mood - Skin Skin Exam: Dry, Normal Color Results - Vital Signs Recent Vital Signs: Last Vital Signs Temp 97.5 F L 03/27/18 23:07 Pulse 65 03/27/18 23:07 Resp 18 03/27/18 23:07 BP 118/65 03/27/18 23:07 Pulse Ox 99 03/27/18 22:12 - Labs Result Diagrams: 03/27/18 15:19 03/27/18 16:21 Labs: Laboratory Results - last 24 hr 03/27/18 03/27/18 15:19 16:21 WBC 7.3 D RBC 4.03 Hgb 13.6 L Hct 41.0 L MCV 101.7 MCH 33.7 MCHC 33.2 RDW 13.5 Plt Count 277 MPV 11.4 H Gran % 68.5 H Lymph % (Auto) 21.7 L [place] % (Auto) 7.1 H Eos % (Auto) 2.2 Baso % (Auto) 0.5 Gran # 5.01 Lymph # (Auto) 1.6 [place] # (Auto) 0.5 Eos # (Auto) 0.2 Baso # (Auto) 0.04 Sodium 139 Potassium 5.1 H Chloride 101 Carbon Dioxide 32 Anion Gap 11 BUN 36 H Creatinine 1.1 Est GFR ( Amer) > 60 Est GFR (Non-Af Amer) > 60 Random Glucose 74 Calcium 9.7 Magnesium 2.5 H Total Bilirubin 0.7 AST 32 ALT 23 Alkaline Phosphatase 39 Total Protein 8.0 Albumin 3.9 Globulin 4.1 Albumin/Globulin Ratio 1.0 L Assessment & Plan - Assessment and Plan (Free Text) Assessment: 63M completely dependent on family and recent PEG placement 3 weeks [employer] presenting for recurrent PEG dislodgement s/p Mendosa replacement in ED. #PEG tube dislodgement, recurrent #Inadequate home care #CVA, AFIB, DVT on Eliquis #Poor ADLs #T2DM PLAN: -Due to recent placement of PEG (less than 4 weeks), we will ideally have to repeat endoscopically placement of new PEG tube. -Although a Mendosa was placed with good position seen on imaging, the risk of exchanging PEG tube at bedside is not zero and could potentially lead to a surgical problem. -There is a considerable amount of concern regarding the care he is receiving at home since he has had several admissions for recurrent PEG tube issue plus foreign body ingestion needing endoscopic removal. -Therefore, Patient will need structured and organized follow up care if we are to replace PEG tube at this time. -Recommend continuing Eliquis until a structured solution is in place. -Will need to discuss with primary team for planning. - Date & Time Date: 03/28/18 Time: 06:42
[2018-03-28 07:10] LABS: HEMOGLOBIN 12.1 g/dL (14.0-18.0); MEAN CORPUSCULAR HEMOGLOBIN 33.8 pg (25.0-35.0); MEAN CORPUSCULAR HGB CONC 33.2 g/dl (31.0-37.0); MEAN PLATELET VOLUME 11.5 fl (7.0-11.0); RBC 3.58 10^6/uL (3.5-6.1); RED CELL DISTRIBUTION WIDTH 13.7 % (11.5-14.5); WHITE BLOOD COUNT 6.8 10^3/ul (4.5-11.0)
[2018-03-28] MEDS ORDERED: Piperacillin/Tazobact 3.375 gm 100 ML IVPB SCH ×2 (07:15→12:00)
[2018-03-28 07:26] LABS: ALB/GLOB RATIO 0.9 (1.1-1.8); ALBUMIN 3.5 g/dL (3.0-4.8); ALT/SGPT 16 U/L (7-56); AST/SGOT 30 U/L (17-59); BLOOD UREA NITROGEN 29 mg/dL (7-21); CALCIUM 9.1 mg/dL (8.4-10.5); GFR NON-AFRICAN AMERICAN 56
--- NOTE | 2018-03-28 09:31 | CARD ---
APPROVED REPORT Date of service: 03/27/2018 EKG Measurement Heart [id number] <Conclusion> Normal sinus rhythm Small inferior q waves PRWP V 1 - 4 No change
[2018-03-28] MEDS: levETIRAcetam 500mg IVPB 500 MG/100 ML BAG IV SCH (09:59)
[2018-03-28 10:57] VITALS: BP 151/94; PULSE 80; O2SAT 94
--- NOTE | 2018-03-29 08:25 | PROCN ---
Copied To: Leon Rodriguez MD Attending MD: Leon Rodriguez MD DATE: 03/28/2018 The patient had a Mendosa catheter placed in the emergency room by Dr. Lay yesterday. A Gastrografin study through the Mendosa showed the tip of the Mendosa to be in the gastric lumen. The existing Mendosa catheter was removed through the existing PEG tract. A Microvasive 20-Kiswahili gastrostomy tube was inserted through the tract into the stomach without any difficulty. 6 mL of water was injected into the balloon port. The gastrostomy tube was pulled back until balloon was met. The external bumper was adjusted to the abdominal wall. The bumper was at 5 cm marking. The PEG tube was then flushed easily with 50 mL of sterile water. 40 mL of bile-tinged fluid was withdrawn confirming placement of the tip of the gastrostomy tube in his stomach. The patient tolerated the procedure well. Recommendations are to resume feedings. I have requested that an abdominal binder be placed over the gastrostomy tube, so the patient does not pull the PET tube out. The patient can be discharged to home. Leon Rodriguez MD
--- NOTE | 2018-03-29 09:10 | HP ---
CHIEF COMPLAINT AND HISTORY OF PRESENT ILLNESS: This is a 63-year-old male who has come into the hospital because of PEG that was dislodged. A Mendosa was placed in the ER to hold its place. Patient was seen by GI this morning. The patient has a history of atrial fibrillation, on anticoagulation, CVA. He has a history of DVT, has a stent in his common bile duct. The patient was brought in by his family because of PEG tube that was dislodged. Patient's primary doctor has asked me to follow the patient in the hospital. Patient is not able to get information because of his underlying medical issues and probable dementia. REVIEW OF SYSTEMS: Unable to do full review of symptoms. PAST MEDICAL HISTORY: CVA, PEG placement as above. FAMILY HISTORY: Unable to obtain. SOCIAL HISTORY: He lives with his family. He has aphasia due to his previous CVA. PHYSICAL EXAMINATION: VITAL SIGNS: Temperature is 97.4, pulse of 65, blood pressure 118/65, respirations 18. GENERAL: The patient is lying in bed, flat, comfortable. HEENT: No oral lesion. Anicteric sclerae. Moist mucosa. NECK: No JVD, adenopathy, or thyromegaly. CARDIOVASCULAR: S1 and S2, regular. No murmurs, rubs, or gallops. LUNGS: Clear to auscultation bilaterally. No wheeze, rales, or rhonchi. ABDOMEN: Bowel sounds are positive, soft, nontender and nondistended. EXTREMITIES: No cyanosis, clubbing or edema. LABORATORY DATA: His labs have been reviewed. White count is 7.3, hemoglobin 13.6. Potassium is 5.1, repeat is 4.3. Creatinine is 1.1. ASSESSMENT: 1. Percutaneous endoscopic gastrostomy malfunction. 2. Aphasia. 3. Cerebrovascular accident. 4. Atrial fibrillation, on Eliquis. 5. Deep venous thrombosis, on Eliquis. 6. Diabetes type 2. PLAN: The patient was admitted to the hospital. He was seen by GI and the PEG was placed. Patient was given the flu shot and pneumococcal shot. Patient was discharged. He was going to continue his home medications with Eliquis. He is on metformin at home for his diabetes type 2. He is on Keppra for his seizures. He is going to follow up with his primary care doctor. Thierno Shaikh MD [facility] # [id number]
== END 2018-03-28 15:58 | disposition home or self-care (01) ==
LOC: ED 12:13 → ERH 16:54 → UNDOADMOB 17:37 → ERH 17:37 → 3RSO 22:13
PROVIDERS: ADMIT Internal Medicine Nephrology; ATTEND Internal Medicine Nephrology
DX: K94.23 Gastrostomy malfunction (principal); I10 Essential (primary) hypertension; I69.320 Aphasia following cerebral infarction; E11.51 Type 2 diabetes mellitus with diabetic peripheral angiopathy without gangrene; Z79.01 Long term (current) use of anticoagulants; Z79.84 Long term (current) use of oral hypoglycemic drugs
CPT/HCPCS: 36415; 71045; 74018; 80053; 82948; 83735; 85025; 85027; 93005; 99285; G0378; J1953; J2543; J7030; J7042; Q9966

== ENCOUNTER 2018-09-07 12:51 | Emergency (ER) | payer MEDICARE, MEDICAID | END 2018-09-07 20:34 | disposition home or self-care (01) | LOC: ED 12:51 ==